=== PATIENT | female | born 1930 | race Caucasian/White ===

== ENCOUNTER 2016-10-31 09:25 | Inpatient (IN) | payer OTHER ==
[~2016-10-31] VITALS: Ht 160 cm; Wt 52.9 kg
[2016-10-31] MEDS ORDERED: SODIUM CHLORIDE 0.9% 1000ML 1,000 ML IV STA (09:50)
--- NOTE | 2016-10-31 10:26 | DIAGNOSTIC IMAGING REPORT ---
CHEST ONE VIEW PORTABLE CLINICAL HISTORY: FALL, RT SHOULDER PAIN trauma. Pain. COMPARISON STUDY: 02/10/2005 FINDINGS: Mild chronic emphysematous change. Mild apical fibrotic change. Increased density left pulmonary apex felt to be overlap artifact. Mild chronic interstitial change left base combined with superimposed atelectatic change. Fracture right humeral neck IMPRESSION: Emphysematous change. Mild interstitial change left base. Note is made of a fracture of the right humeral neck The above report was generated using voice recognition software. It may contain grammatical, syntax or spelling errors. Electronically signed by: [place] Dominique M.D. 10/31/2016 10:25 AM Dictated Date/Time: 10/31/2016 10:24 AM
--- NOTE | 2016-10-31 10:27 | DIAGNOSTIC IMAGING REPORT ---
RIGHT SHOULDER MIN 2 VIEWS ROUTINE CLINICAL HISTORY: R shoulder pain, hematoma Right trauma COMPARISON: None. DISCUSSION: Slightly impacted fracture right humeral neck. No evidence of dislocation. All remaining osseous structures are unremarkable. There is no evidence for soft tissue swelling. IMPRESSION: Slightly impacted fracture humeral neck. The above report was generated using voice recognition software. It may contain grammatical, syntax or spelling errors. Electronically signed by: [place] Dominique M.D. 10/31/2016 10:26 AM Dictated Date/Time: 10/31/2016 10:25 AM
[2016-10-31 10:31] LABS: BASO % 0.1 %; BASO ABS # 0.01 K/uL (0-0.2); COMPLETE YES; EOS % 0.1 %; HEMATOCRIT 34.9 % (37-47); IG% 0.4 %; LYMPH % 4.8 %; LYMPH ABS # 0.62 K/uL (1.2-3.4); MEAN CELL VOLUME 85.3 fL (80-100); MEAN CORPUSCULAR HEMOGLOBIN 29.1 pg (25-34); MEAN CORPUSCULAR HGB CONC 34.1 g/dl (32-36); MEAN PLATELET VOLUME 10.9 fL (7.4-10.4); MONO % 6.1 %; NEUT % 88.5 %; PLATELET COUNT 339 K/uL (130-400); RED BLOOD COUNT 4.09 M/uL (4.2-5.4); WHITE BLOOD COUNT 12.79 K/uL (4.8-10.8)
--- NOTE | 2016-10-31 10:35 | EMERGENCY ROOM VISIT NOTE ---
History Report prepared by Karolyn: Dayana Rodas Under the Supervision of: Dr. Gianna Lopez M.D. First contact with patient: 09:36 Chief Complaint: ARM PAIN Stated Complaint: FALL/R-ARM WEAKNESS History of Present Illness The patient is an 86 year old female who presents to the Emergency Room with complaints of persistent right shoulder pain starting 2300 last night. She presents to the ED by EMS. She lives alone at home. She was going out into the garage yesterday to get water. She left her walker inside. She lost her balance and fell onto her right side. She then crawled into the house to her walker. She was in the garage for about 10 minutes. She was able to walk using her walker. She slept sitting up on the sofa last night. She is unable to move her arm due to the pain. She denies any head injury, hip pain, or other pain. She did eat dinner last night. She is not on any blood thinners. She fell before and injured her right shoulder. She did not have a fracture at that time. Source of History: patient Onset: 2300 last night Position: shoulder (right) Quality: other (injury) Timing: other (persistent) Modifying Factors (Worsening): movement Associated Symptoms: No headache Note: Pt denies hip pain, head injury. Review of Systems See HPI for pertinent positives & negatives. A total of 10 systems reviewed and were otherwise negative. Past Medical & Surgical Medical Problems: (1) Chest pain (2) Fracture of humeral head (3) Hypertension (4) Hypothyroidism (5) Osteoporosis (6) Post-polio muscle weakness (7) Vertigo Surgical Problems: (1) S/P lumpectomy of breast Family History Noncontributory secondary to age. Social History Smoking Status: Never Smoker Marital Status: Housing Status: lives alone Occupation Status: retired Current/Historical Medications Scheduled Calcium Carbonate-Cholecalcife (Calcium 500 +D), 1 TAB PO BID Levothyroxine Sodium (Synthroid), 50 MCG PO DAILY Lisinopril (Prinivil), 10 MG PO DAILY Multivitamin (Multivitamin), 1 TAB PO DAILY Scheduled PRN Meclizine HCl (Meclizine 25), 25 MG PO TID PRN for Dizziness or Vertigo Allergies Coded Allergies: Adhesives (Verified Allergy, Unknown, 10/31/16) Physical Exam Vital Signs Date Time Temp Pulse Resp B/P (MAP) Pulse Ox O2 Delivery O2 Flow Rate FiO2 10/31/16 11:30 75 18 179/90 98 Room Air 10/31/16 10:33 73 10/31/16 10:28 74 18 181/89 98 Room Air 10/31/16 09:33 36.7 85 18 183/99 98 Room Air Physical Exam Vital signs reviewed. General: Well-appearing 86-year-old female, in no significant distress. HEENT: No scleral icterus, PERRLA, neck supple. Atraumatic. Cardiovascular: Regular rate and rhythm, no extra sounds. Pulmonary: Clear to auscultation bilaterally, normal work of breathing. Abdomen: Soft, nontender, nondistended, positive bowel sounds. Musculoskeletal: Tenderness to palpation of the right humeral head, ecchymosis over the right bicep, pain with any ROM of the right arm, no significant deformity or swelling, neurovascularly intact distally. Nontender with pelvic rocking. Full ROM in the bilateral lower extremities. Cervical, thoracic and lumbar spine are palpated, nontender, no step-off or deformity appreciated. Neurologic: Patient awake alert and oriented x 3, 3/5 strength in bilateral lower extremities, baseline. Skin: Warm, dry, no rash. No significant abrasions/laceration. Medical Decision & Procedures ER Provider Diagnostic Interpretation: X-ray results as stated below per interpretation by me and the radiologist: CHEST ONE VIEW PORTABLE CLINICAL HISTORY: FALL, RT SHOULDER PAIN trauma. Pain. COMPARISON STUDY: 02/10/2005 FINDINGS: Mild chronic emphysematous change. Mild apical fibrotic change. Increased density left pulmonary apex felt to be overlap artifact. Mild chronic interstitial change left base combined with superimposed atelectatic change. Fracture right humeral neck IMPRESSION: Emphysematous change. Mild interstitial change left base. Note is made of a fracture of the right humeral neck The above report was generated using voice recognition software. It may contain grammatical, syntax or spelling errors. Electronically signed by: [place] Dominique M.D. 10/31/2016 10:25 AM Dictated Date/Time: 10/31/2016 10:24 AM RIGHT SHOULDER MIN 2 VIEWS ROUTINE CLINICAL HISTORY: R shoulder pain, hematoma Right trauma COMPARISON: None. DISCUSSION: Slightly impacted fracture right humeral neck. No evidence of dislocation. All remaining osseous structures are unremarkable. There is no evidence for soft tissue swelling. IMPRESSION: Slightly impacted fracture humeral neck. The above report was generated using voice recognition software. It may contain grammatical, syntax or spelling errors. Electronically signed by: [place] Dominique M.D. 10/31/2016 10:26 AM Dictated Date/Time: 10/31/2016 10:25 AM Laboratory Results Test 10/31/16 10:00 10/31/16 10:12 10/31/16 11:15 Immature Granulocyte % (Auto) 0.4 % White Blood Count 12.79 K/uL (4.8-10.8) Red Blood Count 4.09 M/uL (4.2-5.4) Hemoglobin 11.9 g/dL (12.0-16.0) Hematocrit 34.9 % (37-47) Mean Corpuscular Volume 85.3 fL (80-100) Mean Corpuscular Hemoglobin 29.1 pg (25-34) Mean Corpuscular Hemoglobin Concent 34.1 g/dl (32-36) Platelet Count 339 K/uL (130-400) Mean Platelet Volume 10.9 fL (7.4-10.4) Neutrophils (%) (Auto) 88.5 % Lymphocytes (%) (Auto) 4.8 % Monocytes (%) (Auto) 6.1 % Eosinophils (%) (Auto) 0.1 % Basophils (%) (Auto) 0.1 % Neutrophils # (Auto) 11.32 K/uL (1.4-6.5) Lymphocytes # (Auto) 0.62 K/uL (1.2-3.4) Monocytes # (Auto) 0.78 K/uL (0.11-0.59) Eosinophils # (Auto) 0.01 K/uL (0-0.5) Basophils # (Auto) 0.01 K/uL (0-0.2) Immature Granulocyte # (Auto) 0.05 K/uL (0.00-0.02) Prothrombin Time 10.2 SECONDS (9.0-12.0) Prothromb Time International Ratio 1.0 (0.9-1.1) Activated Partial Thromboplast Time 28.8 SECONDS (21.0-31.0) Partial Thromboplastin Ratio 1.1 Osmolality 269 mOsm/kg (280-300) Magnesium Level 1.9 mg/dl (1.8-2.4) Total Bilirubin 0.8 mg/dl (0.2-1) Direct Bilirubin 0.2 mg/dl (0-0.2) Aspartate Amino Transf (AST/SGOT) 21 U/L (15-37) Alanine Aminotransferase (ALT/SGPT) 22 U/L (12-78) Alkaline Phosphatase 79 U/L (45-117) Total Creatine Kinase 106 U/L (26-192) Total Protein 6.9 gm/dl (6.4-8.2) Albumin 3.7 gm/dl (3.4-5.0) 25-Hydroxy Vitamin D Total 22.6 ng/ml (30-100) Thyroid Stimulating Hormone (TSH) 0.848 uIu/ml (0.300-4.500) Bedside Troponin I < 0.030 ng/ml (0-0.045) Urine Color YELLOW Urine Appearance CLEAR (CLEAR) Urine pH 7.0 (4.5-7.5) Urine Specific [place] 1.016 (1.000-1.030) Urine Protein NEG (NEG) Urine Glucose (UA) NEG (NEG) Urine Ketones NEG (NEG) Urine Occult Blood NEG (NEG) Urine Nitrite NEG (NEG) Urine Bilirubin NEG (NEG) Urine Urobilinogen NEG (NEG) Urine Leukocyte Esterase NEG (NEG) Urine Osmolality 403 mOms/kg (500-800) Laboratory results per my review. Medications Administered Medications (Trade) Dose Ordered Sig/Guerrero Route Start Time Stop Time Status Last Admin Dose Admin Sodium Chloride 1,000 ml @ 125 mls/hr Q8H STAT IV 10/31/16 09:50 10/31/16 16:04 DC 10/31/16 10:30 125 MLS/HR ECG Indication: other (fall) Rate (beats per minute): 75 Rhythm: normal sinus Findings: no acute ischemic change, no ectopy ED Course 0949: Past medical records reviewed. The patient was evaluated in room B8. A complete history and physical examination was performed. 0950: NSS 1000 ml @ 125 mls/hr IV. 1226: Upon reevaluation, the patient is resting comfortably. I discussed laboratory and radiographic results with her. She verbalized agreement of the treatment plan. The patient will be evaluated for further management and care. 1247: I reviewed the patient's case [facility] She will evaluate the patient for further management. Medical Decision Differential diagnosis: Intracranial injury, cervical spine injury, intrathoracic injury, intra- abdominal injury, musculoskeletal injury. This patient was evaluated and appeared to be in no significant distress. Physical examination reveals a large amount of ecchymosis over the right biceps region as well as tenderness to the humeral head. X-rays confirm an impacted humeral head fracture without a significant displacement. Patient was placed in an arm sling. The remainder of the imaging studies are negative. The patient denies any head injury or loss of consciousness. Patient has been gently hydrated with normal saline solution. She is found to be hyponatremic. Case was discussed with the hospitalist service for further evaluation. Patient will likely require PT OT evaluation as well as consideration for rehabilitation upon discharge. Patient and son are aware of the plan and agree. Medication Reconcilliation Current Medication List: was personally reviewed by me Blood Pressure Screening Patient's blood pressure: Elevated blood pressure Referred to the hospitalist. Consults Time Called: 1230 Consulting Physician: Efraín Ojeda hospitalist Returned Call: [phone] I reviewed the patient's case with her. She will evaluate the patient for further management. Impression Primary Impression: Fracture of head of right humerus Additional Impression: Fall Scribe Attestation The scribe's documentation has been prepared under my direction and personally reviewed by me in its entirety. I confirm that the note above accurately reflects all work, treatment, procedures, and medical decision making performed by me. Departure Information Dispostion Being Evaluated By Hospitalist Referrals Lance Eugene M.D. (PCP) Patient Instructions My [facility] Problem Qualifiers
[2016-10-31] MEDS ORDERED: MECL-91 PO (10:39)
[2016-10-31] MEDS ORDERED: LEVO50TA PO (10:39)
[2016-10-31] MEDS ORDERED: LISI10TA PO (10:39)
[2016-10-31] MEDS ORDERED: MULT-506 PO (10:39)
[2016-10-31 10:49] LABS: BUN/CREATININE RATIO 36.7 (10-20); CALCIUM 9.2 mg/dl (8.5-10.1); CREATININE 0.39 mg/dl (0.60-1.20); MAGNESIUM 1.9 mg/dl (1.8-2.4)
[2016-10-31 11:30] LABS: URINE APPEARANCE CLEAR (CLEAR); URINE BILIRUBIN NEG (NEG); URINE COLOR YELLOW; URINE NITRITE NEG (NEG); URINE SPECIFIC GRAVITY 1.016 (1.000-1.030); UROBILINOGEN NEG (NEG); ZZUR CULT IF INDIC CLEAN CATCH NO
[2016-10-31 11:32] LABS: MANUAL MICROSCOPIC REQUIRED? NO; REVIEW REQ? NO
[2016-10-31] MEDS ORDERED: ACETAMINOPHEN 325 MG TAB PO PRN (13:00)
[2016-10-31] MEDS ORDERED: ONDANSETRON INJ 2 MG/ML 2 ML VIAL IV PRN (13:00)
[2016-10-31 13:09] VITALS: O2SAT 98; Ht 160 cm; Wt 52.9 kg
[2016-10-31] MEDS ORDERED: IV FLUIDS COMPLETED PRN (14:00)
[2016-10-31 14:45] VITALS: O2SAT 98
--- NOTE | 2016-10-31 15:02 | History and Physical ---
History & Physical Date & Time of Service: Oct 31, 2016 at 14:47 Chief Complaint: Fall/R-Arm Weakness Primary Care Physician: Lance Eugene M.D. History of Present Illness Source: patient, family, clinic records, hospital records 86 yo F presents with R arm pain, restricted ROM and possible biceps rupture after a mechanical fall at home last evening while in her garage. She reports feeling off balance which is a long-standing issue she has had for several years , which has caused two other falls in the past year. She denies any loss of consciousness and reports that she only hit her R shoulder, and did not extend her arm out to catch herself. She denies feeling poorly including no chest pain , shortness of breath, headache, abdominal pain, nausea, diarrhea, recent bleeding or blood in stool. She reports feeling lightheaded moreso when going from sitting to standing or sometimes when she is just getting out of bed. With her two prior falls there were no apparent fractures. 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 She does admit to being fearful of showering because she is afraid she will fall. She ambulates with a walker at baseline. Her son is at bedside and assisted with history. She is mentating well and reports that her pain is present but tolerable without the need for medications. She does have a large vertical bruise over her entire R biceps, and she is unable to actively move her R arm. 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 Social History Smoking Status: Never Smoker Smokeless Tobacco Use: No Alcohol Use: none Drug Use: none Marital Status: other Housing status: lives alone Occupational Status: retired Immunizations History of Influenza Vaccine: Yes Influenza Vaccine Date: Feb 04, 2016 History of Tetanus Vaccine?: Yes (4 YRS AGO) Tetanus Immunization Date: Aug 16, 2014 History of Pneumococcal: Yes Pneumococcal Date: Aug 01, 2014 History of Hepatitis B Vaccine: No Multi-Drug Resistant Organisms History of MDRO: No Allergies Coded Allergies: Adhesives (Verified Allergy, Unknown, 10/31/16) Home Medications Scheduled Calcium Carbonate-Cholecalcife (Calcium 500 +D), 1 TAB PO BID Levothyroxine Sodium (Synthroid), 50 MCG PO DAILY Lisinopril (Prinivil), 10 MG PO DAILY Multivitamin (Multivitamin), 1 TAB PO DAILY Scheduled PRN Meclizine HCl (Meclizine 25), 25 MG PO TID PRN for Dizziness or Vertigo Review of Systems Constitutional: + weight loss (chronic, not rapid), No fever, No chills, No fatigue ENT: No problem reported Respiratory: No cough, No shortness of breath Cardiovascular: No chest pain Abdomen: No pain, No nausea, No vomiting, No diarrhea, No GI bleeding Musculoskeletal: + joint pain, + muscle pain (RUE) Genitourinary - Female: No problem reported Neurologic: + balance problems Psychiatric: No problem reported Hematologic / Lymphatic: + abnormal bleeding/bruising (RUE after trauma) Allergic / Immunologic: No food allergies Physical Exam Vital Signs Date Time Temp Pulse Resp B/P (MAP) Pulse Ox O2 Delivery O2 Flow Rate FiO2 10/31/16 13:22 75 18 176/78 98 Room Air 10/31/16 13:09 98 Room Air 10/31/16 11:30 75 18 179/90 98 Room Air 10/31/16 10:33 73 10/31/16 10:28 74 18 181/89 98 Room Air 10/31/16 09:33 36.7 85 18 183/99 98 Room Air GEN: thin, frail, elderly, in no acute distress, alert and appropriate HEENT: NC/AT, pupils are equal and round bilaterally, normal sclerae/ conjunctivae, MMM CARDIO: reg rate, S1/2 heard without m/g/r LUNGS: CTA bilaterally, no crackles, rales or wheezes, good diaphragmatic excursion ABD: soft, non-tender, non-distended, no rebound or guarding, +BS EXTREMITY: RUE-unable to move with active or passive motion, difficult to get sweater untangled from her arm and was causing her pain so limited exam. Significant bruising noted in her biceps with point tenderness in proximal shoulder. RP and DP palpable 2+ bilat, no LE swelling or edema, extremities are warm and well-perfused. Some L foot drop noted-chronic polio effect, otherwise strength intact NEURO: CN 2-12 grossly intact, sensation intact throughout MUSC: as above. SKIN: warm and dry and ecchymosis in R biceps. Diagnostics Laboratory Results 10/31/16 10:00 Red Blood Count 4.09, Mean Corpuscular Volume 85.3, Mean Corpuscular Hemoglobin 29.1, Mean Corpuscular Hemoglobin Concent 34.1, Mean Platelet Volume 10.9, Neutrophils (%) (Auto) 88.5, Lymphocytes (%) (Auto) 4.8, Monocytes (%) (Auto) 6.1, Eosinophils (%) (Auto) 0.1, Basophils (%) (Auto) 0.1, Neutrophils # (Auto) 11.32, Lymphocytes # (Auto) 0.62, Monocytes # (Auto) 0.78, Eosinophils # (Auto) 0.01, Basophils # (Auto) 0.01 10/31/16 10:00 Test 10/31/16 10:00 10/31/16 10:12 10/31/16 11:15 White Blood Count 12.79 K/uL (4.8-10.8) Red Blood Count 4.09 M/uL (4.2-5.4) Hemoglobin 11.9 g/dL (12.0-16.0) Hematocrit 34.9 % (37-47) Mean Corpuscular Volume 85.3 fL (80-100) Mean Corpuscular Hemoglobin 29.1 pg (25-34) Mean Corpuscular Hemoglobin Concent 34.1 g/dl (32-36) Platelet Count 339 K/uL (130-400) Mean Platelet Volume 10.9 fL (7.4-10.4) Neutrophils (%) (Auto) 88.5 % Lymphocytes (%) (Auto) 4.8 % Monocytes (%) (Auto) 6.1 % Eosinophils (%) (Auto) 0.1 % Basophils (%) (Auto) 0.1 % Neutrophils # (Auto) 11.32 K/uL (1.4-6.5) Lymphocytes # (Auto) 0.62 K/uL (1.2-3.4) Monocytes # (Auto) 0.78 K/uL (0.11-0.59) Eosinophils # (Auto) 0.01 K/uL (0-0.5) Basophils # (Auto) 0.01 K/uL (0-0.2) RDW Standard Deviation 40.8 fL (36.4-46.3) RDW Coefficient of Variation 13.1 % (11.5-14.5) Immature Granulocyte % (Auto) 0.4 % Immature Granulocyte # (Auto) 0.05 K/uL (0.00-0.02) Anion Gap 4.0 mmol/L (3-11) Est Creatinine Clear Calc Drug Dose 87.2 ml/min Estimated GFR () 111.0 Estimated GFR (Non- 95.8 BUN/Creatinine Ratio 36.7 (10-20) Osmolality 269 mOsm/kg (280-300) Calcium Level 9.2 mg/dl (8.5-10.1) Magnesium Level 1.9 mg/dl (1.8-2.4) Total Bilirubin 0.8 mg/dl (0.2-1) Direct Bilirubin 0.2 mg/dl (0-0.2) Aspartate Amino Transf (AST/SGOT) 21 U/L (15-37) Alanine Aminotransferase (ALT/SGPT) 22 U/L (12-78) Alkaline Phosphatase 79 U/L (45-117) Total Creatine Kinase 106 U/L (26-192) Total Protein 6.9 gm/dl (6.4-8.2) Albumin 3.7 gm/dl (3.4-5.0) 25-Hydroxy Vitamin D Total 22.6 ng/ml (30-100) Thyroid Stimulating Hormone (TSH) 0.848 uIu/ml (0.300-4.500) Bedside Troponin I < 0.030 ng/ml (0-0.045) Urine Color YELLOW Urine Appearance CLEAR (CLEAR) Urine pH 7.0 (4.5-7.5) Urine Specific [place] 1.016 (1.000-1.030) Urine Protein NEG (NEG) Urine Glucose (UA) NEG (NEG) Urine Ketones NEG (NEG) Urine Occult Blood NEG (NEG) Urine Nitrite NEG (NEG) Urine Bilirubin NEG (NEG) Urine Urobilinogen NEG (NEG) Urine Leukocyte Esterase NEG (NEG) Results Past 24 Hours Test 10/31/16 10:00 10/31/16 10:12 10/31/16 11:15 Range/Units White Blood Count 12.79 4.8-10.8 K/uL Red Blood Count 4.09 4.2-5.4 M/uL Hemoglobin 11.9 12.0-16.0 g/dL Hematocrit 34.9 37-47 % Mean Corpuscular Volume 85.3 80-100 fL Mean Corpuscular Hemoglobin 29.1 25-34 pg Mean Corpuscular Hemoglobin Concent 34.1 32-36 g/dl Platelet Count 339 130-400 K/uL Mean Platelet Volume 10.9 7.4-10.4 fL Neutrophils (%) (Auto) 88.5 % Lymphocytes (%) (Auto) 4.8 % Monocytes (%) (Auto) 6.1 % Eosinophils (%) (Auto) 0.1 % Basophils (%) (Auto) 0.1 % Neutrophils # (Auto) 11.32 1.4-6.5 K/uL Lymphocytes # (Auto) 0.62 1.2-3.4 K/uL Monocytes # (Auto) 0.78 0.11-0.59 K/uL Eosinophils # (Auto) 0.01 0-0.5 K/uL Basophils # (Auto) 0.01 0-0.2 K/uL RDW Standard Deviation 40.8 36.4-46.3 fL RDW Coefficient of Variation 13.1 11.5-14.5 % Immature Granulocyte % (Auto) 0.4 % Immature Granulocyte # (Auto) 0.05 0.00-0.02 K/uL Sodium Level 127 136-145 mmol/L Potassium Level 5.0 3.5-5.1 mmol/L Chloride Level 94 98-107 mmol/L Carbon Dioxide Level 29 21-32 mmol/L Anion Gap 4.0 3-11 mmol/L Blood Urea Nitrogen 14 7-18 mg/dl Creatinine 0.39 0.60-1.20 mg/dl Est Creatinine Clear Calc Drug Dose 87.2 ml/min Estimated GFR () 111.0 Estimated GFR (Non- 95.8 BUN/Creatinine Ratio 36.7 10-20 Random Glucose 111 70-99 mg/dl Osmolality 269 280-300 mOsm/kg Calcium Level 9.2 8.5-10.1 mg/dl Magnesium Level 1.9 1.8-2.4 mg/dl Total Bilirubin 0.8 0.2-1 mg/dl Direct Bilirubin 0.2 0-0.2 mg/dl Aspartate Amino Transf (AST/SGOT) 21 15-37 U/L Alanine Aminotransferase (ALT/SGPT) 22 12-78 U/L Alkaline Phosphatase 79 45-117 U/L Total Creatine Kinase 106 26-192 U/L Total Protein 6.9 6.4-8.2 gm/dl Albumin 3.7 3.4-5.0 gm/dl 25-Hydroxy Vitamin D Total 22.6 30-100 ng/ml Thyroid Stimulating Hormone (TSH) 0.848 0.300-4.500 uIu/ml Bedside Troponin I < 0.030 0-0.045 ng/ml Urine Color YELLOW Urine Appearance CLEAR CLEAR Urine pH 7.0 4.5-7.5 Urine Specific [place] 1.016 1.000-1.030 Urine Protein NEG NEG Urine Glucose (UA) NEG NEG Urine Ketones NEG NEG Urine Occult Blood NEG NEG Urine Nitrite NEG NEG Urine Bilirubin NEG NEG Urine Urobilinogen NEG NEG Urine Leukocyte Esterase NEG NEG Diagnostic Radiology CHEST ONE VIEW PORTABLE CLINICAL HISTORY: FALL, RT SHOULDER PAIN trauma. Pain. COMPARISON STUDY: 02/10/2005 FINDINGS: Mild chronic emphysematous change. Mild apical fibrotic change. Increased density left pulmonary apex felt to be overlap artifact. Mild chronic interstitial change left base combined with superimposed atelectatic change. Fracture right humeral neck IMPRESSION: Emphysematous change. Mild interstitial change left base. Note is made of a fracture of the right humeral neck RIGHT SHOULDER MIN 2 VIEWS ROUTINE CLINICAL HISTORY: R shoulder pain, hematoma Right trauma COMPARISON: None. DISCUSSION: Slightly impacted fracture right humeral neck. No evidence of dislocation. All remaining osseous structures are unremarkable. There is no evidence for soft tissue swelling. IMPRESSION: Slightly impacted fracture humeral neck EKG Baseline EKG is pending Impression Assessment and Plan 86 yo F with multiple falls at home including a fall last night resulting in shoulder injury and humeral head fracture with poss L biceps tendon rupture. 1. R humeral head fracture-pain is controlled, PRN oxy or Tylenol as needed. PT is declining this now. Very restricted active ROM, passive ROM was difficult so will defer more extensive exam to Ortho. ORtho consult placed. PT /OT consulted. Likely refer to rehab. Appreciate case management involvement. PT lives alone and has endured at least three falls in the past year. She reports a worsening of her balance. TSH is normal. Will check 25OH vit D, B12 and folate. Defer further workup and rearrangement of medications possibly contributing to outpatient PCP. 2. Biceps tendon rupture-significant ecchymosis to R biceps-appreciate Ortho evaluation and recs. 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 Osteoporosis-cont Ca/D 5. HTN-uncontrolled. Cont lisinopril 10mg PO daily and give hydralazine 5 IV now with close monitoring. Control pain-patient appears to be minimizing. 6. Hypothyroidism-TSH wNL, continue Synthroid at home dose 7. Hypotonic, hypovolemic hyponatremia- 500 cc NS given in ER and will repeat Na tonight and give more IVF if necessary DVT proph-heparin FULL CODE-discussed with she and her son on admission Dispo-to Med/Surg and to rehab after Ortho and [facility] Hospital[facility] Level of Care Med/Surg Advanced Directives Existing Living Will: Yes Existing Power of Legal Transcriptionist: Yes (IVONNE SON ) Resuscitation Status FULL RESUSCITATION VTE Prophylaxis VTE Risk Assessment Done? Y/N: Yes Risk Level: Moderate Given or contraindicated: Unfractionated heparin SQ Social Service Consult >80 yr.& Lives Alone
[2016-10-31 15:13] VITALS: BP 184/75; PULSE 92; TEMP 37.4; O2SAT 97
[2016-10-31] MEDS ORDERED: HydrALAZINE HCL 20 MG/ML VIAL IV. STA (15:35)
[2016-10-31] MEDS ORDERED: CALC-343 PO (15:35)
[2016-10-31 15:41] LABS: PARTIAL THROMBOPLASTIN RATIO 1.1; PROTHROMBIN TIME (PATIENT) 10.2 SECONDS (9.0-12.0)
[2016-10-31] MEDS ORDERED: OXYCODONE HCL IR 5 MG TAB (IMMEDIATE RELEASE) PO PRN (15:45)
[2016-10-31] MEDS: HEPARIN SOD 5000 UNIT/0.5 ML CARP SQ SCH ×2 (16:16→21:30)
[2016-10-31 17:16] VITALS: BP 190/74; PULSE 74; PULSE 94
[2016-10-31] MEDS ORDERED: HydrALAZINE HCL 20 MG/ML VIAL IV. ONE (17:45)
[2016-10-31 19:00] VITALS: BP 129/62; PULSE 105; TEMP 36.7
[2016-10-31] MEDS: CALCIUM 600MG + VIT D 400 IU TAB PO SCH (21:23)
--- NOTE | 2016-10-31 21:51 | Orthopedic Consultation ---
Orthopedic Consultation Date of Consultation: Oct 31, 2016. Attending Physician: Yana Garces DO Reason for Consultation: Right shoulder pain and proximal humerus fracture History of Present Illness 86-year-old female who sustained a fall yesterday directly onto the right shoulder. She had immediate pain and inability to use the right shoulder. She presented to the emergency room today for further evaluation. She states that she's had several falls recently. Denies previous injury to the right shoulder. Denies numbness or tingling in the extremity. Past Medical/Surgical History Medical Problems: (1) Fall Status: Acute (2) Fracture of head of right humerus Status: Acute Family History Patient reports no known family medical history. Social History Smoking Status: Never Smoker Smokeless Tobacco Use: No Alcohol Use: none Drug Use: none Marital Status: other Housing Status: lives alone Occupation Status: retired Allergies Coded Allergies: Adhesives (Verified Allergy, Unknown, 10/31/16) Home Medications Scheduled Calcium Carbonate-Cholecalcife (Calcium 500 +D), 1 TAB PO BID Levothyroxine Sodium (Synthroid), 50 MCG PO DAILY Lisinopril (Prinivil), 10 MG PO DAILY Multivitamin (Multivitamin), 1 TAB PO DAILY Scheduled PRN Meclizine HCl (Meclizine 25), 25 MG PO TID PRN for Dizziness or Vertigo Current Inpatient Medications Current Inpatient Medications Medications (Trade) Dose Ordered Sig/Guerrero Route Start Time Stop Time Status Last Admin Dose Admin Heparin Sodium (Porcine) (Heparin Sq 5000 Unit/0.5ml) 5,000 unit Q8@0600,1400,2200 SQ 10/31/16 16:30 11/30/16 16:29 10/31/16 21:30 5,000 UNIT Acetaminophen (Tylenol Tab) 650 mg Q4H PRN PO 10/31/16 13:00 11/30/16 12:59 Polyethylene (Miralax Powder Packet) 17 gm DAILY PRN PO 10/31/16 13:00 11/30/16 12:59 Ondansetron HCl (Zofran Inj) 4 mg Q6H PRN IV 10/31/16 13:00 11/30/16 12:59 Miscellaneous (Iv Fluids Completed) 1 ea PRN PRN N/A 10/31/16 14:00 10/31/17 13:59 Levothyroxine Sodium (Synthroid Tab) 50 mcg DAILYBB PO 11/01/16 06:00 12/01/16 05:59 Lisinopril (Zestril Tab) 10 mg DAILY PO 11/01/16 09:00 12/01/16 08:59 Multivitamins (Multivitamin Tab) 1 tab DAILY PO 11/01/16 09:00 12/01/16 08:59 Calcium/Vitamin D (Caltrate Plus Tab) 1 tab BID PO 10/31/16 21:00 11/30/16 20:59 10/31/16 21:23 1 TAB Oxycodone HCl (Roxicodone Immediate Rel Tab) 5 mg Q4H PRN PO 10/31/16 15:45 11/14/16 15:44 Tramadol HCl (Ultram Tab) 50 mg Q4H PRN PO 10/31/16 19:00 11/30/16 18:59 Physical Exam Date Time Temp Pulse Resp B/P (MAP) Pulse Ox O2 Delivery O2 Flow Rate FiO2 10/31/16 19:00 36.7 105 129/62 (84) 10/31/16 17:16 94 190/74 (112) 10/31/16 15:15 Room Air 10/31/16 15:13 37.4 92 16 184/75 (111) 97 Room Air 10/31/16 14:45 94 18 185/88 98 10/31/16 13:22 75 18 176/78 98 Room Air 10/31/16 13:09 98 Room Air 10/31/16 11:30 75 18 179/90 98 Room Air 10/31/16 10:33 73 10/31/16 10:28 74 18 181/89 98 Room Air 10/31/16 09:33 36.7 85 18 183/99 98 Room Air Right upper extremity: 2+ radial pulse, light touch sensation and motor function in the median ulnar and radial nerve distributions is intact. Ecchymosis over the biceps. No significant tenderness over the biceps. No pain with palpation or range of motion of the elbow. She has tenderness to palpation and pain with motion at the shoulder. Left upper extremity examination is unremarkable General Appearance: WD/WN Head: normocephalic Eyes: normal inspection Neck: supple Respiratory/Chest: chest non-tender Cardiovascular: regular rate, rhythm Extremities/Musculoskelatal: + pertinent finding (ecchymoses) Laboratory Results Last 24 Hours Test 10/31/16 10:00 10/31/16 10:12 10/31/16 11:15 White Blood Count 12.79 K/uL Red Blood Count 4.09 M/uL Hemoglobin 11.9 g/dL Hematocrit 34.9 % Mean Corpuscular Volume 85.3 fL Mean Corpuscular Hemoglobin 29.1 pg Mean Corpuscular Hemoglobin Concent 34.1 g/dl Platelet Count 339 K/uL Mean Platelet Volume 10.9 fL Neutrophils (%) (Auto) 88.5 % Lymphocytes (%) (Auto) 4.8 % Monocytes (%) (Auto) 6.1 % Eosinophils (%) (Auto) 0.1 % Basophils (%) (Auto) 0.1 % Neutrophils # (Auto) 11.32 K/uL Lymphocytes # (Auto) 0.62 K/uL Monocytes # (Auto) 0.78 K/uL Eosinophils # (Auto) 0.01 K/uL Basophils # (Auto) 0.01 K/uL RDW Standard Deviation 40.8 fL RDW Coefficient of Variation 13.1 % Immature Granulocyte % (Auto) 0.4 % Immature Granulocyte # (Auto) 0.05 K/uL Prothrombin Time 10.2 SECONDS Prothromb Time International Ratio 1.0 Activated Partial Thromboplast Time 28.8 SECONDS Partial Thromboplastin Ratio 1.1 Sodium Level 127 mmol/L Potassium Level 5.0 mmol/L Chloride Level 94 mmol/L Carbon Dioxide Level 29 mmol/L Anion Gap 4.0 mmol/L Blood Urea Nitrogen 14 mg/dl Creatinine 0.39 mg/dl Est Creatinine Clear Calc Drug Dose 87.2 ml/min Estimated GFR () 111.0 Estimated GFR (Non- 95.8 BUN/Creatinine Ratio 36.7 Random Glucose 111 mg/dl Osmolality 269 mOsm/kg Calcium Level 9.2 mg/dl Magnesium Level 1.9 mg/dl Total Bilirubin 0.8 mg/dl Direct Bilirubin 0.2 mg/dl Aspartate Amino Transf (AST/SGOT) 21 U/L Alanine Aminotransferase (ALT/SGPT) 22 U/L Alkaline Phosphatase 79 U/L Total Creatine Kinase 106 U/L Total Protein 6.9 gm/dl Albumin 3.7 gm/dl 25-Hydroxy Vitamin D Total 22.6 ng/ml Thyroid Stimulating Hormone (TSH) 0.848 uIu/ml Bedside Troponin I < 0.030 ng/ml Urine Color YELLOW Urine Appearance CLEAR Urine pH 7.0 Urine Specific [place] 1.016 Urine Protein NEG Urine Glucose (UA) NEG Urine Ketones NEG Urine Occult Blood NEG Urine Nitrite NEG Urine Bilirubin NEG Urine Urobilinogen NEG Urine Leukocyte Esterase NEG Urine Osmolality 403 mOms/kg Assessment & Plan Impacted right proximal humerus fracture Fractures in acceptable alignment. Long she is able to maintain current alignment this fracture will heal well with nonoperative measures. The ecchymoses over the anterior aspect of her arm is from proximal humerus and the blood tracking down distally or from a rupture of the long head of biceps tendon. Rupture of the long head of biceps tendon is common particularly in the elderly population as it is a degenerative condition and is treated well with nonoperative measures. For now we will place her in a sling she is to be nonweightbearing on the right upper extremity. She is to follow-up in my office in 1 week for surveillance x-rays.
[2016-10-31 23:12] VITALS: BP_SYST 117; BP_SYST 130; BP_SYST 94; BP_DIAS 54; BP_DIAS 61; BP_DIAS 64; PULSE 102; PULSE 116; PULSE 137; TEMP 37.3; O2SAT 96
[2016-11-01] VITALS (8 sets, daily range): BP systolic 135–176; BP diastolic 67–83; PULSE 72–115; TEMP 36.5–36.7; O2SAT 95–96
[2016-11-01 05:40] LABS: HEMATOCRIT 31.4 % (37-47); MEAN CELL VOLUME 85.8 fL (80-100); MEAN CORPUSCULAR HEMOGLOBIN 29.5 pg (25-34); MEAN CORPUSCULAR HGB CONC 34.4 g/dl (32-36); MEAN PLATELET VOLUME 10.4 fL (7.4-10.4); PLATELET COUNT 295 K/uL (130-400); RED BLOOD COUNT 3.66 M/uL (4.2-5.4); WHITE BLOOD COUNT 6.28 K/uL (4.8-10.8)
[2016-11-01] MEDS: LEVOTHYROXINE 50 MCG TAB PO SCH (05:42)
[2016-11-01] MEDS: HEPARIN SOD 5000 UNIT/0.5 ML CARP SQ SCH ×3 (05:45→21:39)
[2016-11-01 06:24] LABS: BUN/CREATININE RATIO 43.2 (10-20); CALCIUM 8.6 mg/dl (8.5-10.1); CREATININE 0.28 mg/dl (0.60-1.20); POTASSIUM 4.2 mmol/L (3.5-5.1)
[2016-11-01] MEDS: TRAMADOL HCL 50 MG TAB PO PRN ×2 (07:28→23:57)
[2016-11-01] MEDS: ERGOCALCIFEROL 50,000 INTER.UNIT CAP PO SCH ×2 (09:00→09:15)
[2016-11-01] MEDS: LISINOPRIL 10 MG TAB PO SCH (09:16)
[2016-11-01] MEDS: CALCIUM 600MG + VIT D 400 IU TAB PO SCH ×2 (09:16→20:49)
[2016-11-01] MEDS: MULTIVITAMIN TAB PO SCH (09:16)
[2016-11-01] MEDS ORDERED: SODIUM CHLORIDE 0.9% 1000ML 1,000 ML IV SCH (17:30)
[2016-11-01] MEDS: POLYETHYLENE (MIRALAX) 17 GM PACK PO PRN (21:44)
[2016-11-02 01:11] VITALS: BP 174/74; PULSE 72
[2016-11-02] MEDS: CLONIDINE HCL 0.1 MG TAB PO PRN (01:13)
--- NOTE | 2016-11-02 01:14 | Progress Note ---
Medicine Progress Note Date & Time of Visit: Nov 01, 2016 at 13:51. Subjective tolerating PO pain is controlled Objective Last 8 Hrs Date Time Temp Pulse Resp B/P (MAP) Pulse Ox O2 Delivery O2 Flow Rate FiO2 11/01/16 12:03 72 16 160/72 (101) 95 Room Air 11/01/16 08:00 Room Air 11/01/16 07:20 115 16 153/78 (103) 95 11/01/16 07:16 86 16 164/83 (110) 95 Room Air 11/01/16 07:13 36.5 83 16 164/74 (104) 95 Room Air Physical Exam: GEN: WNWD, in no acute distress, alert and appropriate, R arm in sling HEENT: NC/AT, PERRL, normal sclerae CARDIO: reg rate, S1/2 heard without m/g/r LUNGS: CTA bilaterally, no crackles, rales or wheezes, good diaphragmatic excursion ABD: soft, non-tender, non-distended, no rebound or guarding EXTREMITY: RP and DP palpable 2+ bilat, no LE swelling or edema, extremities are warm and well-perfused NEURO: CN 2-12 grossly intact, no gross focal deficits. SKIN: warm and dry, ecchymosis to RUE biceps Laboratory Results: 11/01/16 05:24 11/01/16 05:24 Test 10/31/16 10:00 10/31/16 10:12 10/31/16 11:15 11/01/16 05:24 Immature Granulocyte % (Auto) 0.4 % White Blood Count 12.79 K/uL (4.8-10.8) Red Blood Count 4.09 M/uL (4.2-5.4) 3.66 M/uL (4.2-5.4) Hemoglobin 11.9 g/dL (12.0-16.0) Hematocrit 34.9 % (37-47) Mean Corpuscular Volume 85.3 fL (80-100) 85.8 fL (80-100) Mean Corpuscular Hemoglobin 29.1 pg (25-34) 29.5 pg (25-34) Mean Corpuscular Hemoglobin Concent 34.1 g/dl (32-36) 34.4 g/dl (32-36) Platelet Count 339 K/uL (130-400) Mean Platelet Volume 10.9 fL (7.4-10.4) 10.4 fL (7.4-10.4) Neutrophils (%) (Auto) 88.5 % Lymphocytes (%) (Auto) 4.8 % Monocytes (%) (Auto) 6.1 % Eosinophils (%) (Auto) 0.1 % Basophils (%) (Auto) 0.1 % Neutrophils # (Auto) 11.32 K/uL (1.4-6.5) Lymphocytes # (Auto) 0.62 K/uL (1.2-3.4) Monocytes # (Auto) 0.78 K/uL (0.11-0.59) Eosinophils # (Auto) 0.01 K/uL (0-0.5) Basophils # (Auto) 0.01 K/uL (0-0.2) Immature Granulocyte # (Auto) 0.05 K/uL (0.00-0.02) Prothrombin Time 10.2 SECONDS (9.0-12.0) Prothromb Time International Ratio 1.0 (0.9-1.1) Activated Partial Thromboplast Time 28.8 SECONDS (21.0-31.0) Partial Thromboplastin Ratio 1.1 Osmolality 269 mOsm/kg (280-300) Magnesium Level 1.9 mg/dl (1.8-2.4) Total Bilirubin 0.8 mg/dl (0.2-1) Direct Bilirubin 0.2 mg/dl (0-0.2) Aspartate Amino Transf (AST/SGOT) 21 U/L (15-37) Alanine Aminotransferase (ALT/SGPT) 22 U/L (12-78) Alkaline Phosphatase 79 U/L (45-117) Total Creatine Kinase 106 U/L (26-192) Total Protein 6.9 gm/dl (6.4-8.2) Albumin 3.7 gm/dl (3.4-5.0) 25-Hydroxy Vitamin D Total 22.6 ng/ml (30-100) Thyroid Stimulating Hormone (TSH) 0.848 uIu/ml (0.300-4.500) Bedside Troponin I < 0.030 ng/ml (0-0.045) Urine Color YELLOW Urine Appearance CLEAR (CLEAR) Urine pH 7.0 (4.5-7.5) Urine Specific [place] 1.016 (1.000-1.030) Urine Protein NEG (NEG) Urine Glucose (UA) NEG (NEG) Urine Ketones NEG (NEG) Urine Occult Blood NEG (NEG) Urine Nitrite NEG (NEG) Urine Bilirubin NEG (NEG) Urine Urobilinogen NEG (NEG) Urine Leukocyte Esterase NEG (NEG) Urine Osmolality 403 mOms/kg (500-800) RDW Standard Deviation 41.9 fL (36.4-46.3) RDW Coefficient of Variation 13.2 % (11.5-14.5) Anion Gap 5.0 mmol/L (3-11) Est Creatinine Clear Calc Drug Dose 121.5 ml/min Estimated GFR () 123.8 Estimated GFR (Non- 106.8 BUN/Creatinine Ratio 43.2 (10-20) Calcium Level 8.6 mg/dl (8.5-10.1) Vitamin B12 Level 651 pg/mL (211-911) Folate 15.70 ng/mL (>5.38) Last 24 Hours Test 11/01/16 05:24 White Blood Count 6.28 K/uL Red Blood Count 3.66 M/uL Hemoglobin 10.8 g/dL Hematocrit 31.4 % Mean Corpuscular Volume 85.8 fL Mean Corpuscular Hemoglobin 29.5 pg Mean Corpuscular Hemoglobin Concent 34.4 g/dl RDW Standard Deviation 41.9 fL RDW Coefficient of Variation 13.2 % Platelet Count 295 K/uL Mean Platelet Volume 10.4 fL Sodium Level 132 mmol/L Potassium Level 4.2 mmol/L Chloride Level 100 mmol/L Carbon Dioxide Level 27 mmol/L Anion Gap 5.0 mmol/L Blood Urea Nitrogen 12 mg/dl Creatinine 0.28 mg/dl Est Creatinine Clear Calc Drug Dose 121.5 ml/min Estimated GFR () 123.8 Estimated GFR (Non- 106.8 BUN/Creatinine Ratio 43.2 Random Glucose 91 mg/dl Calcium Level 8.6 mg/dl Vitamin B12 Level 651 pg/mL Folate 15.70 ng/mL Assessment & Plan 86 yo F with multiple falls at home including a fall last night resulting in shoulder injury and humeral head fracture with poss L biceps tendon rupture. 1. R humeral head fracture-pain is controlled, PRN oxy or Tylenol as needed. PT is declining this now. Very restricted active ROM, passive ROM was difficult so will defer more extensive exam to Ortho. ORtho consult placed. PT /OT consulted. Likely refer to rehab-awaiting placement.. Appreciate case management involvement. PT lives alone and has endured at least three falls in the past year. She reports a worsening of her balance. TSH is normal. Will check 25OH vit D, B12 and folate. Defer further workup and rearrangement of medications possibly contributing to outpatient PCP. 2. Biceps tendon rupture-significant ecchymosis to R biceps-appreciate Ortho evaluation and recs. 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 Osteoporosis-cont Ca/D 5. HTN-uncontrolled. Cont lisinopril 10mg PO daily and give hydralazine 5 IV now with close monitoring. Control pain-patient appears to be minimizing. 6. Hypothyroidism-TSH wNL, continue Synthroid at home dose 7. Hypotonic, hypovolemic hyponatremia- 500 cc NS given in ER and will repeat Na tonight and give more IVF if necessary DVT proph-heparin FULL CODE-discussed with she and her son on admission Dispo-to Med/Surg and to rehab after Ortho and PT/OT evals [facility] Medications: Current Inpatient Medications Medications (Trade) Dose Ordered Sig/Guerrero Route Start Time Stop Time Status Last Admin Dose Admin Heparin Sodium (Porcine) (Heparin Sq 5000 Unit/0.5ml) 5,000 unit Q8@0600,1400,2200 SQ 10/31/16 16:30 11/30/16 16:29 11/01/16 13:31 5,000 UNIT Acetaminophen (Tylenol Tab) 650 mg Q4H PRN PO 10/31/16 13:00 11/30/16 12:59 Polyethylene (Miralax Powder Packet) 17 gm DAILY PRN PO 10/31/16 13:00 11/30/16 12:59 Ondansetron HCl (Zofran Inj) 4 mg Q6H PRN IV 10/31/16 13:00 11/30/16 12:59 Miscellaneous (Iv Fluids Completed) 1 ea PRN PRN N/A 10/31/16 14:00 10/31/17 13:59 Levothyroxine Sodium (Synthroid Tab) 50 mcg DAILYBB PO 11/01/16 06:00 12/01/16 05:59 11/01/16 05:42 50 MCG Lisinopril (Zestril Tab) 10 mg DAILY PO 11/01/16 09:00 12/01/16 08:59 11/01/16 09:16 10 MG Multivitamins (Multivitamin Tab) 1 tab DAILY PO 11/01/16 09:00 12/01/16 08:59 11/01/16 09:16 1 TAB Calcium/Vitamin D (Caltrate Plus Tab) 1 tab BID PO 10/31/16 21:00 11/30/16 20:59 11/01/16 09:16 1 TAB Oxycodone HCl (Roxicodone Immediate Rel Tab) 5 mg Q4H PRN PO 10/31/16 15:45 11/14/16 15:44 Tramadol HCl (Ultram Tab) 50 mg Q4H PRN PO 10/31/16 19:00 11/30/16 18:59 11/01/16 07:28 50 MG Ergocalciferol (Vitamin D Cap) 50,000 interunit Q7D PO 11/01/16 09:00 12/01/16 08:59
[2016-11-02 02:57] VITALS: BP_SYST 120; BP_SYST 126; BP_SYST 127; BP_DIAS 64; BP_DIAS 65; BP_DIAS 67; PULSE 112; PULSE 78; PULSE 87; O2SAT 95; O2SAT 96; O2SAT 97
[2016-11-02 05:55] LABS: HEMATOCRIT 29.7 % (37-47); MEAN CELL VOLUME 85.3 fL (80-100); MEAN CORPUSCULAR HEMOGLOBIN 29.3 pg (25-34); MEAN CORPUSCULAR HGB CONC 34.3 g/dl (32-36); MEAN PLATELET VOLUME 10.1 fL (7.4-10.4); PLATELET COUNT 272 K/uL (130-400); RED BLOOD COUNT 3.48 M/uL (4.2-5.4); WHITE BLOOD COUNT 7.04 K/uL (4.8-10.8)
[2016-11-02] MEDS: LEVOTHYROXINE 50 MCG TAB PO SCH (06:07)
[2016-11-02] MEDS: HEPARIN SOD 5000 UNIT/0.5 ML CARP SQ SCH ×3 (06:07→21:33)
[2016-11-02 06:29] LABS: CREATININE 0.26 mg/dl (0.60-1.20)
[2016-11-02 06:30] LABS: BUN/CREATININE RATIO 46.9 (10-20); CALCIUM 8.2 mg/dl (8.5-10.1); POTASSIUM 4.4 mmol/L (3.5-5.1)
[2016-11-02 08:13] VITALS: BP_SYST 135; BP_SYST 165; BP_SYST 167; BP_DIAS 66; BP_DIAS 72; BP_DIAS 74; PULSE 79; PULSE 84; PULSE 90; TEMP 36.5; O2SAT 96
[2016-11-02] MEDS: LISINOPRIL 10 MG TAB PO SCH (08:26)
[2016-11-02] MEDS: CALCIUM 600MG + VIT D 400 IU TAB PO SCH ×2 (08:27→21:30)
[2016-11-02] MEDS: MULTIVITAMIN TAB PO SCH (08:27)
--- NOTE | 2016-11-02 13:07 | Progress Note ---
Internal Med Progress Note Date of Service: Nov 02, 2016. Provider Documentation: SUBJECTIVE: The patient was seen and examined Complains of pain in right UE on movement Frustrated with her condition OBJECTIVE: Vital Signs-as noted below Exam: General-NO distress at rest Eyes-normal ENT-normal Neck-supple Lungs-Clear to auscultate bilaterally Heart-Regular,no murmur Abdomen-Benign,no masses,bowel sound present Extremities-No edema Right UE is in sling Bruising all of the lateral surface of the arm Neuro-AAOx3 Has bilateral legs weakness Left side more than the right Proximal muscle is weaker than the distal Lab data as noted below. ASSESSMENT & PLAN: 86 yo F with multiple falls at home including a fall last night resulting in shoulder injury and humeral head fracture with poss Right biceps tendon rupture. Has Polio with weak legs ,left leg is weaker than the right R humeral head fracture-pain is controlled, -PRN oxy or Tylenol as needed. PT is declining this now. -Appreciate Ortho input -No surgery needed with good alignment and will reevaluate in 7 days as an OP - PT/OT consulted-Recommended Rehab -Right UE is in Sling -Pain control as above Biceps tendon rupture-significant ecchymosis to R biceps-appreciate Ortho evaluation and recs. 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 Cont lisinopril 10mg PO daily and give hydralazine 5 IV now with close monitoring. Control pain-patient appears to be minimizing. Hypothyroidism-TSH wNL, -Continue Synthroid at home dose Hypotonic, hypovolemic hyponatremia- 500 cc NS given in ER and will repeat Na tonight and give more IVF if necessary DVT proph-heparin FULL CODE-discussed with she and her son on admission Dk to peer completed Skilled care approved but not in [facility]. Vital Signs: Date Time Temp Pulse Resp B/P (MAP) Pulse Ox O2 Delivery O2 Flow Rate FiO2 11/02/16 08:13 36.5 79 16 167/72 (103) 96 Room Air 84 165/66 (99) 90 135/74 (94) 11/02/16 07:48 Room Air 11/02/16 02:57 87 18 120/67 (84) 97 Room Air 11/02/16 02:57 112 19 126/64 (84) 95 Room Air 11/02/16 02:57 78 18 127/65 (85) 96 Room Air 11/02/16 01:11 72 174/74 (107) 11/01/16 23:45 Room Air 11/01/16 23:23 36.7 80 16 176/71 (106) 96 Room Air 11/01/16 16:15 Room Air 11/01/16 15:48 36.5 102 20 156/67 (96) 95 Room Air 113 135/70 (91) 90 167/75 (105) Lab Results: Results Past 24 Hours Test 11/02/16 05:41 Range/Units White Blood Count 7.04 4.8-10.8 K/uL Red Blood Count 3.48 4.2-5.4 M/uL Hemoglobin 10.2 12.0-16.0 g/dL Hematocrit 29.7 37-47 % Mean Corpuscular Volume 85.3 80-100 fL Mean Corpuscular Hemoglobin 29.3 25-34 pg Mean Corpuscular Hemoglobin Concent 34.3 32-36 g/dl RDW Standard Deviation 41.8 36.4-46.3 fL RDW Coefficient of Variation 13.4 11.5-14.5 % Platelet Count 272 130-400 K/uL Mean Platelet Volume 10.1 7.4-10.4 fL Sodium Level 131 136-145 mmol/L Potassium Level 4.4 3.5-5.1 mmol/L Chloride Level 101 98-107 mmol/L Carbon Dioxide Level 26 21-32 mmol/L Anion Gap 4.0 3-11 mmol/L Blood Urea Nitrogen 12 7-18 mg/dl Creatinine 0.26 0.60-1.20 mg/dl Est Creatinine Clear Calc Drug Dose 130.8 ml/min Estimated GFR () 126.8 Estimated GFR (Non- 109.4 BUN/Creatinine Ratio 46.9 10-20 Random Glucose 96 70-99 mg/dl Calcium Level 8.2 8.5-10.1 mg/dl
[2016-11-02 17:30] VITALS: BP_SYST 184; BP_SYST 187; BP_SYST 201; BP_DIAS 78; BP_DIAS 82; PULSE 104; PULSE 78; PULSE 85; TEMP 36.4; O2SAT 97
[2016-11-02 18:06] VITALS: BP 152/80
[2016-11-02 23:15] VITALS: BP 161/76; PULSE 79; TEMP 36.6; O2SAT 97
[2016-11-03] VITALS (9 sets, daily range): BP systolic 123–201; BP diastolic 62–99; PULSE 73–101; TEMP 36.1–36.5; O2SAT 94–98
[2016-11-03] MEDS: LEVOTHYROXINE 50 MCG TAB PO SCH (05:23)
[2016-11-03] MEDS: HEPARIN SOD 5000 UNIT/0.5 ML CARP SQ SCH ×3 (05:24→21:49)
[2016-11-03] MEDS: CLONIDINE HCL 0.1 MG TAB PO PRN ×2 (05:59→22:58)
[2016-11-03] MEDS: TRAMADOL HCL 50 MG TAB PO PRN (07:22)
[2016-11-03] MEDS: CALCIUM 600MG + VIT D 400 IU TAB PO SCH ×2 (08:59→21:09)
[2016-11-03] MEDS: MULTIVITAMIN TAB PO SCH (09:00)
[2016-11-03] MEDS: LISINOPRIL 10 MG TAB PO SCH (09:02)
[2016-11-03] MEDS ORDERED: NURSING VERBAL MED ORDER ONE (13:45)
[2016-11-03] MEDS: MECLIZINE HCL 25 MG TAB PO PRN (14:20)
--- NOTE | 2016-11-03 15:11 | Progress Note ---
Internal Med Progress Note Date of Service: Nov 03, 2016. Provider Documentation: SUBJECTIVE: The patient was seen and examined Complains of pain in right UE on movement Denies any sytoms OBJECTIVE: Vital Signs-as noted below Exam: General-No distress at rest Eyes-normal ENT-normal Neck-supple Lungs-Clear to auscultate bilaterally Heart-Regular,no murmur Abdomen-Benign,no masses,bowel sound present Extremities-No edema Right UE is in sling Bruising all of the lateral surface of the arm Neuro-AAOx3 Has bilateral legs weakness Left side more than the right Proximal muscle is weaker than the distal Lab data as noted below. ASSESSMENT & PLAN: 86 yo F with multiple falls at home including a fall last night resulting in shoulder injury and humeral head fracture with poss Right biceps tendon rupture. Has Polio with weak legs ,left leg is weaker than the right R humeral head fracture-pain is controlled, -PRN oxy or Tylenol as needed. PT is declining this now. -Appreciate Ortho input -No surgery needed with good alignment and will reevaluate in 7 days as an OP - PT/OT consulted-Recommended Rehab -Right UE is in Sling as per Ortho -Pain control as above -awaiting to be placed Biceps tendon rupture-significant ecchymosis to R biceps-appreciate Ortho evaluation and recs. 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 Cont lisinopril 10mg PO daily and give hydralazine 5 IV now with close monitoring. On upper side No orthostasis Hypothyroidism-TSH wNL, -Continue Synthroid at home dose Hypotonic, hypovolemic hyponatremia- 500 cc NS given in ER and will repeat Na tonight and give more IVF if necessary DVT proph-heparin FULL CODE-discussed with she and her son on admission Dk to peer completed Skilled care approved but not in [facility]. Likely to be discharged tomorrow Vital Signs: Date Time Temp Pulse Resp B/P (MAP) Pulse Ox O2 Delivery O2 Flow Rate FiO2 11/03/16 10:26 76 154/72 (99) 79 156/70 (98) 94 149/71 (97) 11/03/16 09:01 75 152/66 (94) 11/03/16 07:15 Room Air 11/03/16 07:09 36.1 80 20 147/77 (100) 98 Room Air 11/03/16 05:59 101 17 201/99 (133) 97 Room Air 11/03/16 05:59 73 18 194/67 (109) 94 Room Air 11/03/16 05:59 88 18 200/81 (120) 95 Room Air 11/02/16 23:50 Room Air 11/02/16 23:15 36.6 79 17 161/76 (104) 97 Room Air 11/02/16 19:50 Room Air 11/02/16 18:06 152/80 (104) 11/02/16 17:30 36.4 104 18 201/82 (121) 97 Room Air 11/02/16 17:30 36.4 85 18 187/82 (117) 97 Room Air 11/02/16 17:30 36.4 78 16 184/78 (113) 97 Room Air
[2016-11-03] MEDS ORDERED: LISINOPRIL 5 MG TAB PO ONE (16:00)
[2016-11-04] MEDS: TRAMADOL HCL 50 MG TAB PO PRN (01:52)
[2016-11-04 03:39] VITALS: BP 114/59; PULSE 69; TEMP 36.7; O2SAT 96
[2016-11-04] MEDS: HEPARIN SOD 5000 UNIT/0.5 ML CARP SQ SCH ×3 (05:15→21:24)
[2016-11-04] MEDS: LEVOTHYROXINE 50 MCG TAB PO SCH (05:16)
[2016-11-04] MEDS: MECLIZINE HCL 25 MG TAB PO PRN (05:34)
[2016-11-04 06:14] LABS: HEMATOCRIT 28.5 % (37-47); MEAN CELL VOLUME 84.8 fL (80-100); MEAN CORPUSCULAR HEMOGLOBIN 29.5 pg (25-34); MEAN CORPUSCULAR HGB CONC 34.7 g/dl (32-36); MEAN PLATELET VOLUME 10.1 fL (7.4-10.4); PLATELET COUNT 279 K/uL (130-400); RED BLOOD COUNT 3.36 M/uL (4.2-5.4); WHITE BLOOD COUNT 5.35 K/uL (4.8-10.8)
[2016-11-04] MEDS: CALCIUM 600MG + VIT D 400 IU TAB PO SCH ×2 (08:57→21:22)
[2016-11-04] MEDS: MULTIVITAMIN TAB PO SCH (08:57)
[2016-11-04 09:01] VITALS: BP 145/67; PULSE 85
[2016-11-04] MEDS: LISINOPRIL 10 MG TAB PO SCH (09:02)
--- NOTE | 2016-11-04 11:49 | Progress Note ---
Internal Med Progress Note Date of Service: Nov 04, 2016. Provider Documentation: SUBJECTIVE: The patient was seen and examined Complains of pain in right UE on movement Denies any symptoms today Ready to be discharged today OBJECTIVE: Vital Signs-as noted below Exam: General-No distress at rest Sitting on a chair without any distress Eyes-normal ENT-normal Neck-supple Lungs-Clear to auscultate bilaterally Heart-Regular,no murmur Abdomen-Benign,no masses,bowel sound present Extremities-No edema Right UE is in sling Bruising all of the lateral surface of the arm Neuro-AAOx3 Has bilateral legs weakness Left side more than the right Proximal muscle is weaker than the distal Lab data as noted below. ASSESSMENT & PLAN: 86 yo F with multiple falls at home including a fall last night resulting in shoulder injury and humeral head fracture with poss Right biceps tendon rupture. Has Polio with weak legs ,left leg is weaker than the right R humeral head fracture-pain is controlled, -PRN oxy or Tylenol as needed. PT is declining this now. -Appreciate Ortho input -No surgery needed with good alignment and will reevaluate in 7 days as an OP - PT/OT consulted-Recommended Rehab -Right UE is in Sling as per Ortho -Pain control as above -Will need to see Ortho in 5 days as an OP Biceps tendon rupture-significant ecchymosis to R biceps-appreciate Ortho evaluation and recs. 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 Cont lisinopril 10mg PO daily and give hydralazine 5 IV now with close monitoring. On upper side No orthostasis Increased Lisinopril -BP is controlled Hypothyroidism-TSH wNL, -Continue Synthroid at home dose Hypotonic, hypovolemic hyponatremia- Reasonably stable DVT proph-heparin FULL CODE-discussed with she and her son on admission Dk to peer completed Skilled care approved but not in [facility]. Discharge today Discussed with the Daughter in detailed Vital Signs: Date Time Temp Pulse Resp B/P (MAP) Pulse Ox O2 Delivery O2 Flow Rate FiO2 11/04/16 09:01 85 145/67 (93) 11/04/16 07:25 Room Air 11/04/16 03:39 36.7 69 18 114/59 (77) 96 Room Air 11/03/16 23:20 Room Air 11/03/16 22:44 174/74 (107) 11/03/16 22:43 36.5 81 18 180/76 (110) 95 Room Air 101 155/82 (106) 81 181/82 (115) 173/73 (106) 11/03/16 21:08 144/72 (96) 11/03/16 15:57 147/63 (91) 11/03/16 15:55 Room Air 11/03/16 15:31 36.4 77 16 124/62 (82) 97 Room Air 101 123/78 (93) 78 156/71 (99) Lab Results: Results Past 24 Hours Test 11/04/16 05:58 Range/Units White Blood Count 5.35 4.8-10.8 K/uL Red Blood Count 3.36 4.2-5.4 M/uL Hemoglobin 9.9 12.0-16.0 g/dL Hematocrit 28.5 37-47 % Mean Corpuscular Volume 84.8 80-100 fL Mean Corpuscular Hemoglobin 29.5 25-34 pg Mean Corpuscular Hemoglobin Concent 34.7 32-36 g/dl RDW Standard Deviation 40.2 36.4-46.3 fL RDW Coefficient of Variation 13.1 11.5-14.5 % Platelet Count 279 130-400 K/uL Mean Platelet Volume 10.1 7.4-10.4 fL
[2016-11-04] MEDS ORDERED: RXC5 PO (11:53)
[2016-11-04] MEDS ORDERED: ULT50X PO (11:53)
[2016-11-04] MEDS ORDERED: MRLP17X PO (11:53)
[2016-11-04] MEDS ORDERED: LSN20 PO (11:53)
--- NOTE | 2016-11-04 12:00 | Discharge Instructions ---
Discharge Instructions Date of Service Nov 04, 2016. Admission Reason for Admission: Fracture Of Humeral Head Discharge Discharge Diagnosis / Problem: Right Humeral fracture,S/P Fall,Hyponatremia- improved,HTN,H/O Polio Discharge Goals Goal(s): Prevent Disease Progression Activity Recommendations Activity Level: Assistance Required Therapies: Physical Therapy, Occupational Therapy . Additional Information Patient informed of condition: Yes Advance Directives: No DNR: No Level of Care: Skilled Communicable Disease: No Prognosis: Stable Oxygen at (LPM): 2 liters/min via NC as needed Austin Catheter: No Instructions / Follow-Up Instructions / Follow-Up Please make a follow up appointment with Dr Garcias (Ortho) in 5-7 days . .See your PCP in week following discharge from the Facility Please check PRP (Basic Metabolic Panel) in 3-5 days and report it to the caring physician at the facility or to the PCP Current Hospital Diet Patient's current hospital diet: AHA Diet (Heart Healthy) Discharge Diet Recommended Diet: AHA Diet (Heart Healthy) (Restric fluid to 1500 mls daily.) Fluid Restriction: 1500 ml (6 cups) Pending Studies Studies pending at discharge: no Medical Emergencies . Who to Call and When: Medical Emergencies: If at any time you feel your situation is an emergency, please call 911 immediately. . Non-Emergent Contact Non-Emergency issues call your: Primary Care Provider . Past History Medical & Surgical History: (1) Hypertension (2) Fracture of humeral head (3) Fall (4) Hypothyroidism (5) Osteoporosis (6) S/P lumpectomy of breast (7) History of post-polio syndrome . "Provider Documentation" section prepared by Chely Young. . Core Measure Problem Core Measures: None
[2016-11-04 13:07] LABS: BUN/CREATININE RATIO 29.7 (10-20); CALCIUM 9.1 mg/dl (8.5-10.1); CREATININE 0.32 mg/dl (0.60-1.20); POTASSIUM 4.3 mmol/L (3.5-5.1)
[2016-11-04 13:12] VITALS: BP 145/67; PULSE 85; TEMP 36.7; O2SAT 96
[2016-11-04 15:54] VITALS: BP 127/63; PULSE 78; TEMP 36.5; O2SAT 97
[2016-11-04] MEDS ORDERED: SODIUM CHLORIDE 1 GM TAB PO ONE (18:00)
[2016-11-04 23:30] VITALS: BP 167/75; PULSE 80; TEMP 37; O2SAT 96
[2016-11-05] MEDS: CLONIDINE HCL 0.1 MG TAB PO PRN (00:03)
[2016-11-05 01:38] VITALS: BP 143/70
[2016-11-05] MEDS: LEVOTHYROXINE 50 MCG TAB PO SCH (06:16)
[2016-11-05] MEDS: HEPARIN SOD 5000 UNIT/0.5 ML CARP SQ SCH ×2 (06:37→14:26)
[2016-11-05 07:28] VITALS: BP 131/76; PULSE 61; TEMP 36.7; O2SAT 99
[2016-11-05 08:29] VITALS: BP 169/75; PULSE 74
[2016-11-05] MEDS: LISINOPRIL 10 MG TAB PO SCH (08:31)
[2016-11-05] MEDS: CALCIUM 600MG + VIT D 400 IU TAB PO SCH (08:32)
[2016-11-05] MEDS: MULTIVITAMIN TAB PO SCH (08:32)
[2016-11-05 08:58] LABS: CALCIUM 8.9 mg/dl (8.5-10.1); CREATININE 0.26 mg/dl (0.60-1.20); MAGNESIUM 1.9 mg/dl (1.8-2.4); POTASSIUM 4.4 mmol/L (3.5-5.1)
[2016-11-05] MEDS ORDERED: SODIUM CHLORIDE 1 GM TAB PO SCH (10:00)
[2016-11-05] MEDS ORDERED: SODIUM CHLORIDE 1 GM TAB PO ONE (10:30)
[2016-11-05] MEDS: POLYETHYLENE (MIRALAX) 17 GM PACK PO PRN (10:57)
--- NOTE | 2016-11-05 14:32 | Progress Note ---
Internal Med Progress Note Date of Service: Nov 05, 2016. Provider Documentation: SUBJECTIVE: The patient was seen and examined Complains of pain in right UE on movement Denies any symptoms today Did not go yesterday as Sodium was low at 124 No symptoms reported OBJECTIVE: Vital Signs-as noted below Exam: General-No distress at rest Sitting on a chair without any distress Eyes-normal ENT-normal Neck-supple Lungs-Clear to auscultate bilaterally Heart-Regular,no murmur Abdomen-Benign,no masses,bowel sound present Extremities-No edema Right UE is in sling Bruising all of the lateral surface of the arm Neuro-AAOx3 Has bilateral legs weakness Left side more than the right Proximal muscle is weaker than the distal Lab data as noted below. ASSESSMENT & PLAN: 86 yo F with multiple falls at home including a fall last night resulting in shoulder injury and humeral head fracture with poss Right biceps tendon rupture. Has Polio with weak legs ,left leg is weaker than the right Hyponatremia Sodium was 124 on 11/04/14 126 in AM and will recheck at 2 If >128 will discharge Fluid restriction and regular diet Check PRP in 3-5 days R humeral head fracture-pain is controlled, -PRN oxy or Tylenol as needed. PT is declining this now. -Appreciate Ortho input -No surgery needed with good alignment and will reevaluate in 7 days as an OP - PT/OT consulted-Recommended Rehab -Right UE is in Sling as per Ortho -Pain control as above -Will need to see Ortho in 5 days as an OP Biceps tendon rupture-significant ecchymosis to R biceps-appreciate Ortho evaluation and recs. 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 Cont lisinopril 10mg PO daily and give hydralazine 5 IV now with close monitoring. On upper side No orthostasis Increased Lisinopril -BP is controlled Hypothyroidism-TSH wNL, -Continue Synthroid at home dose Hypotonic, hypovolemic hyponatremia- Reasonably stable DVT proph-heparin FULL CODE-discussed with she and her son on admission Dk to peer completed Skilled care approved but not in [facility]. Discharge today Discussed with the Daughter in detailed Vital Signs: Date Time Temp Pulse Resp B/P (MAP) Pulse Ox O2 Delivery O2 Flow Rate FiO2 11/05/16 08:29 74 169/75 (106) 11/05/16 07:28 36.7 61 17 131/76 (94) 99 Room Air 11/05/16 07:10 Room Air 11/05/16 01:38 143/70 (94) 11/05/16 00:00 Room Air 11/04/16 23:30 37.0 80 18 167/75 (105) 96 Room Air 11/04/16 15:54 36.5 78 18 127/63 (84) 97 Room Air 11/04/16 15:45 Room Air Lab Results: Results Past 24 Hours Test 11/05/16 08:14 11/05/16 14:24 Range/Units Sodium Level 126 136-145 mmol/L Potassium Level 4.4 3.5-5.1 mmol/L Chloride Level 93 98-107 mmol/L Carbon Dioxide Level 28 21-32 mmol/L Anion Gap 5.0 3-11 mmol/L Blood Urea Nitrogen 8 7-18 mg/dl Creatinine 0.26 0.60-1.20 mg/dl Est Creatinine Clear Calc Drug Dose 130.9 ml/min Estimated GFR () 126.8 Estimated GFR (Non- 109.4 BUN/Creatinine Ratio 30.0 10-20 Random Glucose 92 70-99 mg/dl Calcium Level 8.9 8.5-10.1 mg/dl Magnesium Level 1.9 1.8-2.4 mg/dl
[2016-11-05 15:05] LABS: BUN/CREATININE RATIO 19.5 (10-20); CALCIUM 8.4 mg/dl (8.5-10.1); POTASSIUM 4.4 mmol/L (3.5-5.1)
[2016-11-05 15:07] LABS: CREATININE 0.57 mg/dl (0.60-1.20)
[2016-11-05 15:27] VITALS: BP 154/72; PULSE 75; TEMP 36.9; O2SAT 98
--- NOTE | 2016-11-06 10:11 | Discharge Summary ---
Discharge Summary Date of Service Nov 06, 2016. Discharge Summary Admission Date: Nov 04, 2016 at 13:29 Discharge Date: Nov 05, 2016 Discharge Disposition: [facility] facility Principal Diagnosis: Right Humeral fracture,S/P Fall,Hyponatremia-improved,HTN,H/O Polio Secondary Diagnoses/Problems: Please see H&P and Hospital Progress note Consultations: Ortho Medication Reconciliation New Medications: Lisinopril (Lisinopril) 20 Mg Tab 20 MG PO DAILY, #30 Oxycodone HCl (Oxycodone HCl) 5 Mg Tab 5 MG PO Q4H PRN for Pain for 7 Days, #28 TAB Polyethylene (Miralax) 17 Gm Pow 17 GM PO DAILY PRN for Constipation for 30 Days, #30 DOSE Tramadol HCl (Tramadol HCl) 50 Mg Tab 50 MG PO Q4H PRN for Pain for 7 Days, #28 TAB Continued Medications: Calcium Carbonate-Cholecalcife (Calcium 500 +D) 1 Tab Tab 1 TAB PO BID Levothyroxine Sodium (Synthroid) 50 Mcg Tab 50 MCG PO DAILY, TAB Meclizine HCl (Meclizine 25) 25 Mg Tab 25 MG PO TID PRN for Dizziness or Vertigo Multivitamin (Multivitamin) Tab 1 TAB PO DAILY, TAB Discontinued Medications: Lisinopril (Prinivil) 10 Mg Tab 10 MG PO DAILY, TAB Admission Information HPI (per Admitting provider): 86 yo F presents with R arm pain, restricted ROM and possible biceps rupture after a mechanical fall at home last evening while in her garage. She reports feeling off balance which is a long-standing issue she has had for several years , which has caused two other falls in the past year. She denies any loss of consciousness and reports that she only hit her R shoulder, and did not extend her arm out to catch herself. She denies feeling poorly including no chest pain , shortness of breath, headache, abdominal pain, nausea, diarrhea, recent bleeding or blood in stool. She reports feeling lightheaded moreso when going from sitting to standing or sometimes when she is just getting out of bed. With her two prior falls there were no apparent fractures. 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 She does admit to being fearful of showering because she is afraid she will fall. She ambulates with a walker at baseline. Her son is at bedside and assisted with history. She is mentating well and reports that her pain is present but tolerable without the need for medications. She does have a large vertical bruise over her entire R biceps, and she is unable to actively move her R arm. 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 Social History Smoking Status: Never Smoker Smokeless Tobacco Use: No Alcohol Use: none Drug Use: none Marital Status: other Housing status: lives alone Occupational Status: retired Immunizations History of Influenza Vaccine: Yes Influenza Vaccine Date: Feb 04, 2016 History of Tetanus Vaccine?: Yes (4 YRS AGO) Tetanus Immunization Date: Aug 16, 2014 History of Pneumococcal: Yes Pneumococcal Date: Aug 01, 2014 History of Hepatitis B Vaccine: No Multi-Drug Resistant Organisms History of MDRO: No Allergies Coded Allergies: Adhesives (Verified Allergy, Unknown, 10/31/16) Home Medications Scheduled Calcium Carbonate-Cholecalcife (Calcium 500 +D), 1 TAB PO BID Levothyroxine Sodium (Synthroid), 50 MCG PO DAILY Lisinopril (Prinivil), 10 MG PO DAILY Multivitamin (Multivitamin), 1 TAB PO DAILY Scheduled PRN Meclizine HCl (Meclizine 25), 25 MG PO TID PRN for Dizziness or Vertigo Review of Systems Constitutional: + weight loss (chronic, not rapid), No fever, No chills, No fatigue ENT: No problem reported Respiratory: No cough, No shortness of breath Cardiovascular: No chest pain Abdomen: No pain, No nausea, No vomiting, No diarrhea, No GI bleeding Musculoskeletal: + joint pain, + muscle pain (RUE) Genitourinary - Female: No problem reported Neurologic: + balance problems Psychiatric: No problem reported Hematologic / Lymphatic: + abnormal bleeding/bruising (RUE after trauma) Allergic / Immunologic: No food allergies Physical Ex - H&P Physical Exam Vital Signs Date Time Temp Pulse Resp B/P (MAP) Pulse Ox O2 Delivery O2 Flow Rate FiO2 10/31/16 13:22 75 18 176/78 98 Room Air 9/10/17 13:09 98 Room Air 10/31/16 11:30 75 18 179/90 98 Room Air 10/31/16 10:33 73 10/31/16 10:28 74 18 181/89 98 Room Air 10/31/16 09:33 36.7 85 18 183/99 98 Room Air GEN: thin, frail, elderly, in no acute distress, alert and appropriate HEENT: NC/AT, pupils are equal and round bilaterally, normal sclerae/ conjunctivae, MMM CARDIO: reg rate, S1/2 heard without m/g/r LUNGS: CTA bilaterally, no crackles, rales or wheezes, good diaphragmatic excursion ABD: soft, non-tender, non-distended, no rebound or guarding, +BS EXTREMITY: RUE-unable to move with active or passive motion, difficult to get sweater untangled from her arm and was causing her pain so limited exam. Significant bruising noted in her biceps with point tenderness in proximal shoulder. RP and DP palpable 2+ bilat, no LE swelling or edema, extremities are warm and well-perfused. Some L foot drop noted-chronic polio effect, otherwise strength intact NEURO: CN 2-12 grossly intact, sensation intact throughout MUSC: as above. SKIN: warm and dry and ecchymosis in R biceps. Diagnostics - H&P Diagnostics Laboratory Results 10/31/16 10:00 Red Blood Count 4.09, Mean Corpuscular Volume 85.3, Mean Corpuscular Hemoglobin 29.1, Mean Corpuscular Hemoglobin Concent 34.1, Mean Platelet Volume 10.9, Neutrophils (%) (Auto) 88.5, Lymphocytes (%) (Auto) 4.8, Monocytes (%) (Auto) 6.1, Eosinophils (%) (Auto) 0.1, Basophils (%) (Auto) 0.1, Neutrophils # (Auto) 11.32, Lymphocytes # (Auto) 0.62, Monocytes # (Auto) 0.78, Eosinophils # (Auto) 0.01, Basophils # (Auto) 0.01 10/31/16 10:00 Test 10/31/16 10:00 10/31/16 10:12 10/31/16 11:15 White Blood Count 12.79 K/uL (4.8-10.8) Red Blood Count 4.09 M/uL (4.2-5.4) Hemoglobin 11.9 g/dL (12.0-16.0) Hematocrit 34.9 % (37-47) Mean Corpuscular Volume 85.3 fL (80-100) Mean Corpuscular Hemoglobin 29.1 pg (25-34) Mean Corpuscular Hemoglobin Concent 34.1 g/dl (32-36) Platelet Count 339 K/uL (130-400) Mean Platelet Volume 10.9 fL (7.4-10.4) Neutrophils (%) (Auto) 88.5 % Lymphocytes (%) (Auto) 4.8 % Monocytes (%) (Auto) 6.1 % Eosinophils (%) (Auto) 0.1 % Basophils (%) (Auto) 0.1 % Neutrophils # (Auto) 11.32 K/uL (1.4-6.5) Lymphocytes # (Auto) 0.62 K/uL (1.2-3.4) Monocytes # (Auto) 0.78 K/uL (0.11-0.59) Eosinophils # (Auto) 0.01 K/uL (0-0.5) Basophils # (Auto) 0.01 K/uL (0-0.2) RDW Standard Deviation 40.8 fL (36.4-46.3) RDW Coefficient of Variation 13.1 % (11.5-14.5) Immature Granulocyte % (Auto) 0.4 % Immature Granulocyte # (Auto) 0.05 K/uL (0.00-0.02) Anion Gap 4.0 mmol/L (3-11) Est Creatinine Clear Calc Drug Dose 87.2 ml/min Estimated GFR () 111.0 Estimated GFR (Non- 95.8 BUN/Creatinine Ratio 36.7 (10-20) Osmolality 269 mOsm/kg (280-300) Calcium Level 9.2 mg/dl (8.5-10.1) Magnesium Level 1.9 mg/dl (1.8-2.4) Total Bilirubin 0.8 mg/dl (0.2-1) Direct Bilirubin 0.2 mg/dl (0-0.2) Aspartate Amino Transf (AST/SGOT) 21 U/L (15-37) Alanine Aminotransferase (ALT/SGPT) 22 U/L (12-78) Alkaline Phosphatase 79 U/L (45-117) Total Creatine Kinase 106 U/L (26-192) Total Protein 6.9 gm/dl (6.4-8.2) Albumin 3.7 gm/dl (3.4-5.0) 25-Hydroxy Vitamin D Total 22.6 ng/ml (30-100) Thyroid Stimulating Hormone (TSH) 0.848 uIu/ml (0.300-4.500) Bedside Troponin I < 0.030 ng/ml (0-0.045) Urine Color YELLOW Urine Appearance CLEAR (CLEAR) Urine pH 7.0 (4.5-7.5) Urine Specific Ina 1.016 (1.000-1.030) Urine Protein NEG (NEG) Urine Glucose (UA) NEG (NEG) Urine Ketones NEG (NEG) Urine Occult Blood NEG (NEG) Urine Nitrite NEG (NEG) Urine Bilirubin NEG (NEG) Urine Urobilinogen NEG (NEG) Urine Leukocyte Esterase NEG (NEG) Results Past 24 Hours Test 10/31/16 10:00 10/31/16 10:12 10/31/16 11:15 Range/Units White Blood Count 12.79 4.8-10.8 K/uL Red Blood Count 4.09 4.2-5.4 M/uL Hemoglobin 11.9 12.0-16.0 g/dL Hematocrit 34.9 37-47 % Mean Corpuscular Volume 85.3 80-100 fL Mean Corpuscular Hemoglobin 29.1 25-34 pg Mean Corpuscular Hemoglobin Concent 34.1 32-36 g/dl Platelet Count 339 130-400 K/uL Mean Platelet Volume 10.9 7.4-10.4 fL Neutrophils (%) (Auto) 88.5 % Lymphocytes (%) (Auto) 4.8 % Monocytes (%) (Auto) 6.1 % Eosinophils (%) (Auto) 0.1 % Basophils (%) (Auto) 0.1 % Neutrophils # (Auto) 11.32 1.4-6.5 K/uL Lymphocytes # (Auto) 0.62 1.2-3.4 K/uL Monocytes # (Auto) 0.78 0.11-0.59 K/uL Eosinophils # (Auto) 0.01 0-0.5 K/uL Basophils # (Auto) 0.01 0-0.2 K/uL RDW Standard Deviation 40.8 36.4-46.3 fL RDW Coefficient of Variation 13.1 11.5-14.5 % Immature Granulocyte % (Auto) 0.4 % Immature Granulocyte # (Auto) 0.05 0.00-0.02 K/uL Sodium Level 127 136-145 mmol/L Potassium Level 5.0 3.5-5.1 mmol/L Chloride Level 94 98-107 mmol/L Carbon Dioxide Level 29 21-32 mmol/L Anion Gap 4.0 3-11 mmol/L Blood Urea Nitrogen 14 7-18 mg/dl Creatinine 0.39 0.60-1.20 mg/dl Est Creatinine Clear Calc Drug Dose 87.2 ml/min Estimated GFR () 111.0 Estimated GFR (Non- 95.8 BUN/Creatinine Ratio 36.7 10-20 Random Glucose 111 70-99 mg/dl Osmolality 269 280-300 mOsm/kg Calcium Level 9.2 8.5-10.1 mg/dl Magnesium Level 1.9 1.8-2.4 mg/dl Total Bilirubin 0.8 0.2-1 mg/dl Direct Bilirubin 0.2 0-0.2 mg/dl Aspartate Amino Transf (AST/SGOT) 21 15-37 U/L Alanine Aminotransferase (ALT/SGPT) 22 12-78 U/L Alkaline Phosphatase 79 45-117 U/L Total Creatine Kinase 106 26-192 U/L Total Protein 6.9 6.4-8.2 gm/dl Albumin 3.7 3.4-5.0 gm/dl 25-Hydroxy Vitamin D Total 22.6 30-100 ng/ml Thyroid Stimulating Hormone (TSH) 0.848 0.300-4.500 uIu/ml Bedside Troponin I < 0.030 0-0.045 ng/ml Urine Color YELLOW Urine Appearance CLEAR CLEAR Urine pH 7.0 4.5-7.5 Urine Specific Ina 1.016 1.000-1.030 Urine Protein NEG NEG Urine Glucose (UA) NEG NEG Urine Ketones NEG NEG Urine Occult Blood NEG NEG Urine Nitrite NEG NEG Urine Bilirubin NEG NEG Urine Urobilinogen NEG NEG Urine Leukocyte Esterase NEG NEG Diagnostic Radiology CHEST ONE VIEW PORTABLE CLINICAL HISTORY: FALL, RT SHOULDER PAIN trauma. Pain. COMPARISON STUDY: 02/10/2005 FINDINGS: Mild chronic emphysematous change. Mild apical fibrotic change. Increased density left pulmonary apex felt to be overlap artifact. Mild chronic interstitial change left base combined with superimposed atelectatic change. Fracture right humeral neck IMPRESSION: Emphysematous change. Mild interstitial change left base. Note is made of a fracture of the right humeral neck RIGHT SHOULDER MIN 2 VIEWS ROUTINE CLINICAL HISTORY: R shoulder pain, hematoma Right trauma COMPARISON: None. DISCUSSION: Slightly impacted fracture right humeral neck. No evidence of dislocation. All remaining osseous structures are unremarkable. There is no evidence for soft tissue swelling. IMPRESSION: Slightly impacted fracture humeral neck EKG Baseline EKG is pending Impression - H&P Impression Assessment and Plan 86 yo F with multiple falls at home including a fall last night resulting in shoulder injury and humeral head fracture with poss L biceps tendon rupture. 1. R humeral head fracture-pain is controlled, PRN oxy or Tylenol as needed. PT is declining this now. Very restricted active ROM, passive ROM was difficult so will defer more extensive exam to Ortho. ORtho consult placed. PT /OT consulted. Likely refer to rehab. Appreciate case management involvement. PT lives alone and has endured at least three falls in the past year. She reports a worsening of her balance. TSH is normal. Will check 25OH vit D, B12 and folate. Defer further workup and rearrangement of medications possibly contributing to outpatient PCP. 2. Biceps tendon rupture-significant ecchymosis to R biceps-appreciate Ortho evaluation and recs. 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 Osteoporosis-cont Ca/D 5. HTN-uncontrolled. Cont lisinopril 10mg PO daily and give hydralazine 5 IV now with close monitoring. Control pain-patient appears to be minimizing. 6. Hypothyroidism-TSH wNL, continue Synthroid at home dose 7. Hypotonic, hypovolemic hyponatremia- 500 cc NS given in ER and will repeat Na tonight and give more IVF if necessary DVT proph-heparin FULL CODE-discussed with she and her son on admission Dispo-to Med/Surg and to rehab after Ortho and PT/OT evals in am Yana Garces DO [facility] Med/Surg Advanced Directives Existing Living Will: Yes Existing Power of Latex Fashions Designer: Yes (IVONNE SON ) Resuscitation Status FULL RESUSCITATION VTE Prophylaxis VTE Risk Assessment Done? Y/N: Yes Risk Level: Moderate Given or contraindicated: Unfractionated heparin SQ Social Service Consult >80 yr.& Lives Alone Physical Exam (per Admitting): GEN: thin, frail, elderly, in no acute distress, alert and appropriate HEENT: NC/AT, pupils are equal and round bilaterally, normal sclerae/ conjunctivae, MMM CARDIO: reg rate, S1/2 heard without m/g/r LUNGS: CTA bilaterally, no crackles, rales or wheezes, good diaphragmatic excursion ABD: soft, non-tender, non-distended, no rebound or guarding, +BS EXTREMITY: RUE-unable to move with active or passive motion, difficult to get sweater untangled from her arm and was causing her pain so limited exam. Significant bruising noted in her biceps with point tenderness in proximal shoulder. RP and DP palpable 2+ bilat, no LE swelling or edema, extremities are warm and well-perfused. Some L foot drop noted-chronic polio effect, otherwise strength intact NEURO: CN 2-12 grossly intact, sensation intact throughout MUSC: as above. SKIN: warm and dry and ecchymosis in R biceps. Hospital Course 86 yo F with multiple falls at home including a fall last night resulting in shoulder injury and humeral head fracture with poss Right biceps tendon rupture. Has Polio with weak legs ,left leg is weaker than the right Hyponatremia Sodium was 124 on 11/04/14 126 in AM and will recheck at 2 If >128 will discharge Fluid restriction and regular diet Check PRP in 3-5 days R humeral head fracture-pain is controlled, -PRN oxy or Tylenol as needed. PT is declining this now. -Appreciate Ortho input -No surgery needed with good alignment and will reevaluate in 7 days as an OP - PT/OT consulted-Recommended Rehab -Right UE is in Sling as per Ortho -Pain control as above -Will need to see Ortho in 5 days as an OP Biceps tendon rupture-significant ecchymosis to R biceps-appreciate Ortho evaluation and recs. 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 Cont lisinopril 10mg PO daily and give hydralazine 5 IV now with close monitoring. On upper side No orthostasis Increased Lisinopril -BP is controlled Hypothyroidism-TSH wNL, -Continue Synthroid at home dose Hypotonic, hypovolemic hyponatremia- Reasonably stable DVT proph-heparin FULL CODE-discussed with she and her son on admission Dk to peer completed Skilled care approved but not in [facility]. Discharge today Discussed with the Daughter in detailed Total time spent on discharge = 35 minutes This includes examination of the patient, discharge planning, medication reconciliation, and communication with other providers. Discharge Instructions Date of Service Nov 04, 2016. Admission Reason for Admission: Fracture Of Humeral Head Discharge Discharge Diagnosis / Problem: Right Humeral fracture,S/P Fall,Hyponatremia- improved,HTN,H/O Polio Discharge Goals Goal(s): Prevent Disease Progression Activity Recommendations Activity Level: Assistance Required Therapies: Physical Therapy, Occupational Therapy . Additional Information Patient informed of condition: Yes Advance Directives: No DNR: No Level of Care: Skilled Communicable Disease: No Prognosis: Stable Oxygen at (LPM): 2 liters/min via NC as needed Austin Catheter: No Instructions / Follow-Up Instructions / Follow-Up Please make a follow up appointment with Dr Garcias (Ortho) in 5-7 days . .See your PCP in week following discharge from the Facility Please check PRP (Basic Metabolic Panel) in 3-5 days and report it to the caring physician at the facility or to the PCP Current Hospital Diet Patient's current hospital diet: AHA Diet (Heart Healthy) Discharge Diet Recommended Diet: AHA Diet (Heart Healthy) (Restric fluid to 1500 mls daily.) Fluid Restriction: 1500 ml (6 cups) Pending Studies Studies pending at discharge: no Medical Emergencies . Who to Call and When: Medical Emergencies: If at any time you feel your situation is an emergency, please call 911 immediately. . Non-Emergent Contact Non-Emergency issues call your: Primary Care Provider . Past History Medical & Surgical History: (1) Hypertension (2) Fracture of humeral head (3) Fall (4) Hypothyroidism (5) Osteoporosis (6) S/P lumpectomy of breast (7) History of post-polio syndrome . "Provider Documentation" section prepared by Chely Young. . Core Measure Problem Core Measures: None <Electronically signed by Chely Young M.D.> Signed: 11/05/16 3640 Additional Copies To Lance Eugene M.D.
[2016-11-29] MEDS ORDERED: SODIENE PR (08:50)
[2016-11-29] MEDS ORDERED: LISI20TA3 PO (08:50)
[2016-11-29] MEDS ORDERED: ARTIOIN OP (08:50)
[2016-11-29] MEDS ORDERED: POLY335019 PO (08:50)
[2016-11-29] MEDS ORDERED: MOML PO (08:50)
[2016-11-29] MEDS ORDERED: ACET-1311 PO (08:50)
[2016-11-29] MEDS ORDERED: BISA10SU38 PR (08:50)
[2016-12-02] MEDS ORDERED: ULT50X PO (14:34)
[2016-12-02] MEDS ORDERED: RXC5 PO (14:34)
== END 2016-11-05 16:20 | DRG 563 ==
LOC: EDBD 09:25 → C.EDB 09:27 → C.3E 13:00 → ENRESERV 13:31 → OBSVTOIN 11-04 13:29
PROVIDERS: ADMIT Hospitalist; ATTEND Internal Medicine
DX: S42.291A Other displaced fracture of upper end of right humerus, initial encounter for closed fracture (principal); E87.1 Hypo-osmolality and hyponatremia; S46.201A Unspecified injury of muscle, fascia and tendon of other parts of biceps, right arm, initial encounter; I10 Essential (primary) hypertension; E03.9 Hypothyroidism, unspecified; B91 Sequelae of poliomyelitis; M81.0 Age-related osteoporosis without current pathological fracture; M62.81 Muscle weakness (generalized); Y93.01 Activity, walking, marching and hiking; Y92.015 Private garage of single-family (private) house as the place of occurrence of the external cause; W18.39XA Other fall on same level, initial encounter

== ENCOUNTER → 2016-11-24 | Outpatient (CLI) | payer OTHER ==
[~2016-11-24] MED LIST: ACET-1311 PO; ARTIOIN OP; BISA10SU38 PR; CALC-343 PO; LEVO50TA PO; LISI20TA3 PO; LSN20 PO; MECL-91 PO; MOML PO; MRLP17X PO; MULT-506 PO; POLY335019 PO; RXC5 PO; SODIENE PR; ULT50X PO
[2016-11-24 17:52] LABS: URINE APPEARANCE CLOUDY (CLEAR); URINE BILIRUBIN NEG (NEG); URINE COLOR YELLOW; URINE NITRITE NEG (NEG); URINE PH 6.5 (4.5-7.5); URINE SPECIFIC GRAVITY 1.019 (1.000-1.030); UROBILINOGEN NEG (NEG); ZZUR CULT IF INDIC CLEAN CATCH NO
[2016-11-24 17:59] LABS: MANUAL MICROSCOPIC REQUIRED? NO; REVIEW REQ? NO
[2016-11-24 18:07] LABS: BASO % 0.6 %; BASO ABS # 0.04 K/uL (0-0.2); BLOOD UREA NITROGEN 12 mg/dl (7-18); BUN/CREATININE RATIO 32.6 (10-20); CALCIUM 9.1 mg/dl (8.5-10.1); CARBON DIOXIDE 27 mmol/L (21-32); CHLORIDE 97 mmol/L (98-107); COMPLETE YES; CREATININE 0.37 mg/dl (0.60-1.20); EOS % 3.3 %; GLUCOSE 90 mg/dl (70-99); HEMATOCRIT 36.2 % (37-47); IG% 0.1 %; LYMPH % 18.6 %; LYMPH ABS # 1.28 K/uL (1.2-3.4); MEAN CELL VOLUME 88.3 fL (80-100); MEAN CORPUSCULAR HEMOGLOBIN 29.3 pg (25-34); MEAN CORPUSCULAR HGB CONC 33.1 g/dl (32-36); MONO % 10.6 %; NEUT % 66.8 %; PLATELET COUNT 405 K/uL (130-400); POTASSIUM 4.5 mmol/L (3.5-5.1); SODIUM 132 mmol/L (136-145)
[2016-11-24 18:08] LABS: PARTIAL THROMBOPLASTIN RATIO 1.1; PROTHROMBIN TIME (PATIENT) 10.4 SECONDS (9.0-12.0)
== END | disposition home or self-care (01) ==
LOC: C.LABMFLN 13:37
PROVIDERS: ATTEND Orthopaedic Surgery
DX: Z01.818 Encounter for other preprocedural examination (principal)

== ENCOUNTER → 2017-03-03 | Outpatient (CLI) | payer OTHER ==
[~2017-03-03] MED LIST changes: -LSN20 PO; -MRLP17X PO; -MULT-506 PO
[2017-03-03 08:37] LABS: HEMATOCRIT 36.2 % (37-47); MEAN CORPUSCULAR HEMOGLOBIN 28.2 pg (25-34); MEAN CORPUSCULAR HGB CONC 33.1 g/dl (32-36); MEAN PLATELET VOLUME 11.4 fL (7.4-10.4); PLATELET COUNT 310 K/uL (130-400); RED CELL DISTRIBUTION WIDTH SD 43.7 fL (36.4-46.3); WHITE BLOOD COUNT 5.61 K/uL (4.8-10.8)
[2017-03-03 08:47] LABS: BLOOD UREA NITROGEN 13 mg/dl (7-18); CALCIUM 8.9 mg/dl (8.5-10.1); CARBON DIOXIDE 25 mmol/L (21-32); CREATININE 0.28 mg/dl (0.60-1.20); GLUCOSE 91 mg/dl (70-99); POTASSIUM 3.8 mmol/L (3.5-5.1); SODIUM 138 mmol/L (136-145)
== END | disposition home or self-care (01) ==
LOC: C.LABOUTLO 08:14
PROVIDERS: ATTEND Internal Medicine
DX: E03.9 Hypothyroidism, unspecified (principal)

== ENCOUNTER → 2017-06-23 | Outpatient (CLI) | payer OTHER, BC | END | disposition home or self-care (01) | LOC: C.LABOUTLO 08:52 | PROVIDERS: ATTEND Internal Medicine | DX: N39.0 Urinary tract infection, site not specified (principal) ==

== ENCOUNTER 2018-12-26 19:28 | Inpatient (IN) ==
--- OUTSIDE RECORDS SUMMARY | 2018-12-26 19:31 | External Medical Summary | Continuity of Care Document ---
:1930 Author Name Adamaris Baker Address Unavailable Unavailable , Care Team Providers Name Role Phone [facility] M.D. Unavailable [email or web address] Active medical history not documented Allergies and Adverse Reactions Allergy history not documented Medications Medications not documented Procedures Procedures not documented Immunizations Immunizations not documented Plan of Treatment Planned Observations Planned Goals not documented Results No Known Results Results not documented
[2018-12-26] MEDS ORDERED: SODIUM CHLORIDE 0.9% 500 ML IV SCH ×2 (20:15→23:00)
[2018-12-26 20:31] LABS: Basophils # (auto) 0.02 K/uL (0-0.2); Basophils % (auto) 0.2 %; Eosinophils # (auto) 0.01 K/uL (0-0.5); Eosinophils % (auto) 0.1 %; Hematocrit (blood only) 37.1 % (37-47); Hemoglobin 12.7 g/dL (12.0-16.0); Immature Granulocytes # (auto) 0.01 K/uL (0.00-0.02); Immature Granulocytes % (auto) 0.1 %; Lymphocytes # (auto) 0.47 K/uL (1.2-3.4); Lymphocytes % (auto) 3.9 %; Mean Corpuscular Hemoglobin 30.3 pg (25-34); Mean Corpuscular Hgb Conc 34.2 g/dL (32-36); Mean Corpuscular Volume 88.5 fL (80-100); Mean Platelet Volume 11.6 fL (7.4-10.4); Monocytes # (auto) 0.43 K/uL (0.11-0.59); Monocytes % (auto) 3.5 %; Neutrophils # (auto) 11.19 K/uL (1.4-6.5); Neutrophils % (auto) 92.2 %; Platelet Count 328 K/uL (130-400); RDW Coefficient of Variation 13.2 % (11.5-14.5); RDW Standard Deviation 42.9 fL (36.4-46.3); Red Blood Count 4.19 M/uL (4.2-5.4); White Blood Count 12.13 K/uL (4.8-10.8)
[2018-12-26 20:41] LABS: Partial Thromboplastin Ratio 0.9; Partial Thromboplastin Time 24.9 Seconds (21.0-31.0); Prothrombin Time 10.1 Seconds (9.0-12.0)
[2018-12-26 20:48] LABS: Albumin Level 3.7 gm/dl (3.4-5.0); BUN Creatinine Ratio 31.1 (10-20); Bilirubin Direct 0.2 mg/dl (0-0.2); Calcium 9.6 mg/dl (8.5-10.1); Creatinine Clr Calc Pharmacy 50.2 ml/min; Est GFR (African American) 98.9; Est GFR (Non-African American) 85.4; Potassium 4.3 mmol/L (3.5-5.1)
[2018-12-26] MEDS ORDERED: IOVERSOL 100ml IV PRN (20:55)
[2018-12-26 20:59] LABS: Bilirubin,Total 0.4 mg/dl (0.2-1); Total Protein 6.9 gm/dl (6.4-8.2); Troponin I 7.69 ng/ml (0-0.045)
--- NOTE | 2018-12-26 21:23 | XRay Report ---
SINGLE VIEW CHEST CLINICAL HISTORY: Atypical chest pain. FINDINGS: An AP, portable, upright chest radiograph is compared to study dated 10/31/2016 . The examin ation is degraded by portable technique and patient rotation. The heart is top normal for projection noting atherosclerotic calcification of the thoracic aorta. The pulmonary vasculature is noncongested . Chronic interstitial thickening is similar to previous. There is bibasilar scarring/atelectasis. No airspace consolidation or large pleural effusion is identified. No pneumothorax is seen. The skeleta l structures are osteopenic. There are healed right-sided rib fractures. Postoperative change is part ially visualized in the right humerus. IMPRESSION: No acute cardiopulmonary abnormality. Electronically signed by: Reagan Nesbitt M.D. 12/26/2018 9:22 PM
[2018-12-26] MEDS ORDERED: ASPIRIN CHEW 324 MG PO STA (21:28)
[2018-12-26] MEDS ORDERED: MoRPHine SULFATE 4 MG/ML 1 ML CARP\\VIAL IV STA (21:30)
[2018-12-26] MEDS ORDERED: ONDANSETRON INJ 2 MG/ML 2 ML VIAL IV STA (21:33)
[2018-12-26] MEDS ORDERED: MoRPHine SULFATE 2 MG/ML CARP IV STA (21:33)
[2018-12-26] MEDS ORDERED: MIDAZOLAM HCL 1 MG/ML 2ML VIAL ONE (21:38)
[2018-12-26] MEDS ORDERED: fentaNYL citrate 100 MCG/2 ML VIAL ONE (21:38)
[2018-12-26] MEDS ORDERED: NiCARDipine HCL INJ 2.5 MG/ML 10 ML AMP ONE (21:38)
[2018-12-26] MEDS ORDERED: HEPARIN (PORCINE) 1000 UNIT/ML 10 ML (CATH LAB USE ONLY) ONE (21:38)
[2018-12-26] MEDS ORDERED: NITROGLYCERIN/D5W 100MCG/ML 20ML SYR ONE (21:39)
--- NOTE | 2018-12-26 21:45 | CT Scan Report ---
CT SCAN OF THE ABDOMEN AND PELVIS WITH IV CONTRAST CLINICAL HISTORY: Generalized abdominal pain. COMPARISON STUDY: No priors. TECHNIQUE: Following the IV administration of 92 cc of Optiray 320, CT scan of the abdomen and pelvi s is performed from the lung bases to the proximal femora. Images are reviewed in the axial, sagittal , and coronal planes. IV contrast was administered without complication. A dose lowering technique wa s utilized adhering to the principles of ALARA. The examination is degraded by streak artifact from t he arms which could not be elevated above the abdomen or pelvis. There is also motion artifact. CT DOSE: 353.09 mGy.cm FINDINGS: Lung bases: The heart is normal in size and without pericardial effusion. Subpleural reticulation and mild fibrotic change is noted at the lung bases. There is no airspace consolidation or pleural effus ion. There are coronary artery calcifications. Liver: The contrast-enhanced liver is enlarged, measuring 20.9 cm in length. The liver is otherwise n ormal in contour and attenuation. There is no intrahepatic biliary ductal dilatation. The hepatic vei ns and portal veins are patent. Gallbladder: Unremarkable. Spleen: Normal in size and attenuation. Pancreas: Atrophic and grossly unremarkable. Adrenal glands: Unremarkable. Kidneys: The contrast enhanced kidneys are atrophic and without hydronephrosis. The kidneys enhance s ymmetrically. There are numerous subcentimeter there are numerous cortical hypodensities which measur e up to 11 mm. These likely represent cysts but cannot be definitively characterized due to small siz e and streak artifact. Abdominal vasculature: There is advanced atherosclerotic calcification mild ectasia of the abdominal aorta. Bowel: There is rectosigmoid fecal retention and moderate constipation. No bowel obstruction is ident ified. The appendix is not identified. There is mild infiltration of the perianal soft tissues. Intr acranial fluid collection is seen. Peritoneum: There is no intraperitoneal free air or abdominal ascites. Lymphadenopathy: None. Pelvic viscera: The bladder is normal as visualized. The uterus is heterogeneous and the endometrium is prominent for age, measuring up to 11 mm in thickness. No adnexal lesion is seen. Skeletal structures: The skeletal structures are heterogeneously osteopenic. Mild lumbosacral spondyl osis is observed. No lytic or blastic lesions are seen. Soft tissues: The patient is cachectic. IMPRESSION: 1. Streak and motion degraded examination. The examination is also compromised by cachexia and a pauc ity of intraperitoneal fat. 2. There is rectosigmoid fecal retention and moderate constipation. No bowel obstruction is seen. 3. There is mild infiltration of the perianal soft tissues. No perianal fluid collection is identifie d. Correlation with direct visualization is recommended. 4. The uterus is heterogeneous and the endometrium appears thickened for age. This is not well assess ed by CT and follow-up with a nonemergent pelvic ultrasound is recommended for further assessment. 5. Additional findings as above. Electronically signed by: Reagan Nesbitt M.D. 12/26/2018 9:44 PM
[2018-12-26 21:51] LABS: Appearance Urine Cloudy (Clear); Bacteria Urine Automated Negative (Negative); Bilirubin Urine Negative (Negative); Blood Urine Negative (Negative); Color Urine Yellow; Glucose Urine UA Negative (Negative); Ketones Urine Negative (Negative); Leukocyte Esterase Urine Negative (Negative); Nitrite Urine Negative (Negative); Protein Urine Negative (Negative); Specific Gravity Urine 1.035 (1.000-1.030); Urobilinogen Urine Negative (Negative)
[2018-12-26] MEDS ORDERED: ATROPINE SULFATE 0.1 MG/ML 10ML SYR IV ONE (22:10)
[2018-12-26] MEDS ORDERED: CLOPIDOGREL BISULFATE 300 MG TAB ONE (22:35)
[2018-12-26] MEDS ORDERED: ICU PROTOCOL FOR HYPERGLYCEMIA PRN (22:46)
--- NOTE | 2018-12-26 22:46 | Pre Anesthesia Assessment ---
Date of Service December 26, 2018 Pre Sedation Assessment Vital Signs Temp Pulse Pulse Resp BP BP Pulse Ox 12/26/18 21:45 80 19 163/85 H 100 12/26/18 21:41 79 22 100 12/26/18 21:40 81 17 154/83 H 12/26/18 21:30 87 18 12/26/18 21:29 98 12/26/18 21:20 93 H 21 12/26/18 21:10 88 16 97 12/26/18 21:06 91 H 84 18 151/91 H 151/91 H 96 12/26/18 21:05 83 19 12/26/18 20:50 97 12/26/18 20:40 74 17 97 12/26/18 20:35 73 18 128/69 98 12/26/18 20:30 73 17 97 12/26/18 20:20 75 18 98 12/26/18 20:10 80 16 98 12/26/18 20:00 91 H 19 97 12/26/18 19:50 82 21 97 12/26/18 19:40 82 17 97 12/26/18 19:37 85 20 97 12/26/18 19:36 98.6 F 83 20 152/79 H 98 12/26/18 19:33 82 19 152/79 H 98 Cardiovascular RRR, no murmur, no edema Respiratory normal respiratory effort, lungs clear to auscultation Pre-Sedation Airway Assessment Smoking Status: Never smoker Hx Sleep Apnea: No Hx Difficult Intubation: No Short, Thick Neck: No Thyromental Distance: > or= 3.5 Finger Breadths Oral Cavity: + WNL Mallampati Class: III ASA: ASA4 Procedure Planning Contraindications for Sedation: none Current Medications Reviewed: Yes Notes The planned sedation has been discussed with the patient. Informed Consent was obtained. I have identified the patient, determined the appropriateness of sedation and have assessed the patient immediately prior to the procedure. All medicine(s) and interventions are by my order.
[2018-12-26] MEDS ORDERED: ACETAMINOPHEN 325 MG TAB PO PRN (22:50)
[2018-12-26] MEDS ORDERED: ONDANSETRON INJ 2 MG/ML 2 ML VIAL IV PRN (22:50)
--- NOTE | 2018-12-26 23:07 | Cardiology Consultation ---
Date of Consultation December 26, 2018 Assessment & Plan (1) ST elevation (STEMI) myocardial infarction: Troponin and EKG consistent with ACS and suggestive of inferior RI. Patient is DNR/DNI. Dr. Sal in the emergency department discussed cardiac catheterization with patient's son and daughter who voiced to him their wish for patient to undergo any procedures.necessary including possible cardiac catheterization. Patient at time of interview continues to localize pain to her chest and voiced agreement with proceeding with cardiac catheterization as well. We will plan on diagnostic angiography via right radial artery. If multivessel disease or disease appearing more chronic in nature we will plan to medically manage. Further recommendations pending findings of coronary angiography. History of Present Illness Attending Physician: Gen Stallworth MD History of Present Illness 88-year-old woman here with abdominal pain and general symptoms found to have an elevated troponin and ECG concerning for acute RI. Patient seen emergently in the ED after heart alert activated 2 hours post ED arrival. Patient has dementia and resides at [facility]. She is a limited historian. No apparent prior cardiac history. Had a prior echocardiogram in November 2016 which showed preserved LV function, mild LVH and grade 1 diastolic dysfunction. Cardiac risk factors include hypertension and dyslipidemia. Other medical issues include hypothyroidism, osteoporosis, esophageal stricture post dilation. Patient was sent over to ED due to complaints of abdominal pain today. Initially expressed concerns regarding constipation need for an enema. Reported later on described diffuse chest pain for days. Son reports that patient has had exertional dyspnea for weeks. Initial troponin on presentation elevated at 7.69. EKG showed sinus rhythm with occasional PVC and inferior Q waves with ST elevations. Patient given aspirin, morphine, Zofran in the ED. Allergies Allergy/AdvReac Type Severity Reaction Status Date / Time adhesive Allergy Mild RASH Verified 12/26/18 20:18 latex Allergy Mild RASH Verified 12/26/18 20:18 diclofenac Allergy Unknown Verified 12/26/18 20:22 fenofibrate Allergy Unknown Verified 12/26/18 20:22 lisinopril Allergy Unknown Verified 12/26/18 20:22 Penicillins Allergy Unknown Verified 12/26/18 20:22 rosuvastatin [From Crestor] Allergy Unknown Verified 12/26/18 20:22 sulfamethoxazole Allergy Unknown Verified 12/26/18 20:22 [From Bactrim] trimethoprim [From Bactrim] Allergy Unknown Verified 12/26/18 20:22 Home Medications Home Medications Medication Instructions Recorded Confirmed Type acetaminophen [Tylenol] 650 mg PO QID PRN 12/26/18 12/26/18 History amlodipine [Norvasc] 5 mg PO DAILY 12/26/18 12/26/18 History calcium carbonate-vitamin D3 2 tab PO DAILY 12/26/18 12/26/18 History [Oysco 500/D] cyclosporine [Restasis] 1 drp OPB TID PRN 12/26/18 12/26/18 History dextran 70-hypromellose (PF) 1 drp OPB BID PRN 12/26/18 12/26/18 History [Artificial Tears (PF)] diphenhydramine HCl [Banophen] 25 mg PO Q8H PRN 12/26/18 12/26/18 History food supplemt, lactose-reduced 1 ea PO TIDM 12/26/18 12/26/18 History [Boost] levothyroxine 50 mcg PO DAILY 12/26/18 12/26/18 History meclizine 25 mg PO TID PRN 12/26/18 12/26/18 History menthol-zinc oxide [Calmoseptine] 1 applic TOPICAL DAILY PRN 12/26/18 12/26/18 History multivitamin 1 tab PO DAILY 12/26/18 12/26/18 History senna 8.6 mg PO Q OTHER DAY PRN 12/26/18 12/26/18 History Patient History Medical History Hypertension (Chronic) Fracture of humeral head 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" Osteoporosis (Chronic) Hypothyroidism (Chronic) Chest pain Dyslipidemia (Chronic) Hyponatremia Proximal humerus fracture History of post-polio syndrome (Chronic) Dementia Surgical History S/P lumpectomy of breast (Chronic) S/P tubal ligation (Chronic) History of cataract surgery (Chronic) S/P tonsillectomy and adenoidectomy (Chronic) H/O hemorrhoidectomy (Chronic) S/P dilatation of esophageal stricture (Chronic) Family History Other Family history non-contributory Social History Current Living Situation: Other Current Living Situation Comment: [place] Feels Safe at Home: Yes Smoking Status: Never smoker Hx Substance Use: No Review of Systems Review of Systems: Not obtained in the setting of emergent situation and patient's baseline dementia Physical Exam Physical Exam: General: Comfortable, no acute distress, thin, frail HEENT: Sclerae anicteric, mucous membranes dry Lungs: Clear to auscultation bilaterallyes Cardiac: Regular rate and rhythm, no murmurs. Abdomen: Soft, mild diffuse tenderness, nondistended Extremities: Warm, well perfused, no edema. 2+ radial pulses Skin: No rashes or lesions. Neuro: Nonfocal Psych: Alert and oriented to self Results & Data Vital Signs (Past 12 Hours) Vital Signs Temp Pulse Pulse Resp BP BP Pulse Ox 12/26/18 21:45 80 19 163/85 H 100 12/26/18 21:41 79 22 100 12/26/18 21:40 81 17 154/83 H 12/26/18 21:30 87 18 12/26/18 21:29 98 12/26/18 21:20 93 H 21 12/26/18 21:10 88 16 97 12/26/18 21:06 91 H 84 18 151/91 H 151/91 H 96 12/26/18 21:05 83 19 12/26/18 20:50 97 12/26/18 20:40 74 17 97 12/26/18 20:35 73 18 128/69 98 12/26/18 20:30 73 17 97 12/26/18 20:20 75 18 98 12/26/18 20:10 80 16 98 12/26/18 20:00 91 H 19 97 12/26/18 19:50 82 21 97 12/26/18 19:40 82 17 97 12/26/18 19:37 85 20 97 12/26/18 19:36 98.6 F 83 20 152/79 H 98 12/26/18 19:33 82 19 152/79 H 98 PG Care Time/CCT Total # of Minutes Spent Total Time Spent with Patient: Total time spent is greater than 50% in coordination of care (as documented) at patient's floor/unit and/or counseling patient: (1) ST elevation (STEMI) myocardial infarction Involved coronary artery: unspecified coronary artery Qualified Code(s): I21.3 - ST elevation (STEMI) myocardial infarction of unspecified site
--- NOTE | 2018-12-26 23:13 | Cardiac Catheterization ---
ACC Data: Tankage Supervisor Cardiac Status Clinical evaluation leading to the procedure CAD Presenation: STEMI Anginal Classification: CCS IV Heart Failure: No Cardiogenic Shock within 24 Hours: No Cardiac Arrest within 24 Hours: No Imaging Studies Past 6 Months: No Stress Studies Past 6 Months: No Diagnostic Physicians Name: Gen Stallworth MD Status: Emergency Closure Device Percutaneous Entry Location: Radial Closure Device: Radial Band Recommendations: PCI without planned CABG PCI Indication: Immediate PCI for STEMI First Noted: First EKG Reason For Delay in PCI:: Patient delays in providing consent Lesion Segment Name: Proximal RCA Culprit Artery: Yes Stenosis Prior to Rx (%): 100 Chronic Total Occlusion: No IVUS: No FFR: No Pre-Procedure ZEINAB Flow: 0 Previously Treated Lesion: No Lesion Complexity: Non-High/Non-C Lesion Length (mm): 30 Thrombus Present: Yes Bifurcation Lesion: No Guidewire Across Lesion: Stenosis Post-Procedure (%): 0 Post-Procedure ZEINAB Flow: 3 Devices(s) Deployed: Yes Yes Intraprocedure Events Significant Disection: No Perforation: No Cardiac Cath Procedure Full Procedure Date December 26, 2018 Pre-Procedure Diagnosis Pre-Procedure Diagnosis: STEMI AUC Score AUC Score: 9 Post-Procedure Diagnosis Post-Procedure Diagnosis: Severe CAD Procedure(s) Performed Procedure(s) Performed: Coronary Angiography, Left Heart Cath and Drug Eluting Stent [employer] Gen Stallworth MD Cotton Washer(s) Hansel Estimated Blood Loss Estimated Blood Loss: 15 Medication(s) Medication(s): Clopidogrel, Fentanyl, Heparin, Lidocaine 1%, Nicardipine and Nitroglycerin Summary of Findings Indication: STEMI/Heart Alert Access: 6 Fr slender right radial Catheters: Corinne, JR4 guide Findings: LM -angulated, 40% proximal LAD -moderate caliber vessel, proximal luminal irregularities, 70-80% mid segment disease after takeoff of moderate caliber third diagonal. Distal luminal irregularities. Septals give rise to faint collaterals to PDA. 40-50% ostial stenosis of moderate first diagonal Circumflex -small caliber vessel. Gives off 3 small OM's without significant disease. RCA -dominant, large caliber vessel, 100% proximal occlusion LVEDP -11 -- PCI -- Antithrombotic therapy: Heparin, clopidogrel Procedure: RCA cannulated with JR4 guide Data Entry Representative 50 wire passed across lesion into distal vessel Proximal RCA lesion predilated with 2.5 compliant balloon Dilated lesion stented with 3.5 x 38 mm Kaushik drug-eluting stent Stent post-dilated with stent balloon IC vasodilators administered for spasm Post procedure ZEINAB 3 flow, stent well expanded with minimal residual stenosis. Some showering of distal thrombus noted in PLB's. Arterial Closure: TR band Summary: 1. Inferior STEMI/100% acute on chronic proximal RCA occlusion 2. Severe non-culprit coronary artery disease -70-80% mid LAD Angulated left main with 40% proximal stenosis 3. Normal intracardiac filling pressure 4. Successful PCI of proximal to mid RCA with single drug-eluting stent (3.5 x 38 mm Kaushik). Recommendations: Admit to ICU for continued monitoring Loaded with clopidogrel 600 mg in cath Continue dual-antiplatelet therapy for at least 1 year. Trend troponins until peak, Check Echo Uptitrate beta-antonio, start ARB as BP allows High-dose statin Hemodynamics Rest Ao:: 120/15/90 Final Ao: 147/65/100 LV: 128/11 Recommendations Recommendations: PCI without planned CABG Specimens Specimens: None Radiation Exposure (mGy) 363 Contrast (mls) 75 Fluids (cc crystalloids) Fluids (cc crystalloids): 60 Drains Drains: None Anesthesia Moderate Procedural Complication(s) None Disposition ICU I attest to the content of the Intraoperative Record and any orders documented therein. Any exceptions are noted below.
[2018-12-26] MEDS ORDERED: METOPROLOL TARTRATE 1 MG/ML VIAL IV STA (23:50)
[2018-12-26] MEDS ORDERED: METOPROLOL TARTRATE 1 MG/ML VIAL IV ONE (23:52)
--- NOTE | 2018-12-26 23:54 | Emergency Department Note ---
Entered by Malini Chowdary acting as a scribe for History of Present Illness General Chief complaint: Abdominal Pain Stated complaint: ABD PAIN Time Seen by Provider: 12/26/18 19:57 History of Present Illness Provider complaint: abdominal pain Onset (ago): unknown Location: abdomen Pain Consistency: + other (episode) Maximum Pain Intensity: 1 Associated symptoms: + denies other symptoms (pain, vomiting) and + other ("heart hurts") The patient is an 88 year old female who presents to the ED with complaints of an episode of abdominal pain that started at an unknown time. Per nursing staff, the patient denies pain and vomiting. Patient currently denies any abdominal pain. She states that her pain is in her right chest. HPI and ROS limited secondary to dementia. Home Medications Home Medications Medication Instructions Recorded Confirmed Type acetaminophen [Tylenol] 650 mg PO QID PRN 12/26/18 12/26/18 History amlodipine [Norvasc] 5 mg PO DAILY 12/26/18 12/26/18 History calcium carbonate-vitamin D3 2 tab PO DAILY 12/26/18 12/26/18 History [Oysco 500/D] cyclosporine [Restasis] 1 drp OPB TID PRN 12/26/18 12/26/18 History dextran 70-hypromellose (PF) 1 drp OPB BID PRN 12/26/18 12/26/18 History [Artificial Tears (PF)] diphenhydramine HCl [Banophen] 25 mg PO Q8H PRN 12/26/18 12/26/18 History food supplemt, lactose-reduced 1 ea PO TIDM 12/26/18 12/26/18 History [Boost] levothyroxine 50 mcg PO DAILY 12/26/18 12/26/18 History meclizine 25 mg PO TID PRN 12/26/18 12/26/18 History menthol-zinc oxide [Calmoseptine] 1 applic TOPICAL DAILY PRN 12/26/18 12/26/18 History multivitamin 1 tab PO DAILY 12/26/18 12/26/18 History senna 8.6 mg PO Q OTHER DAY PRN 12/26/18 12/26/18 History Allergies Allergy/AdvReac Type Severity Reaction Status Date / Time adhesive Allergy Mild RASH Verified 12/26/18 20:18 latex Allergy Mild RASH Verified 12/26/18 20:18 diclofenac Allergy Unknown Verified 12/26/18 20:22 fenofibrate Allergy Unknown Verified 12/26/18 20:22 lisinopril Allergy Unknown Verified 12/26/18 20:22 Penicillins Allergy Unknown Verified 12/26/18 20:22 rosuvastatin [From Crestor] Allergy Unknown Verified 12/26/18 20:22 sulfamethoxazole Allergy Unknown Verified 12/26/18 20:22 [From Bactrim] trimethoprim [From Bactrim] Allergy Unknown Verified 12/26/18 20:22 Past Med/Surg History Medical History Hypertension (Chronic) Fracture of humeral head 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" Osteoporosis (Chronic) Hypothyroidism (Chronic) Chest pain Dyslipidemia (Chronic) Hyponatremia Proximal humerus fracture History of post-polio syndrome (Chronic) Dementia Surgical History S/P lumpectomy of breast (Chronic) S/P tubal ligation (Chronic) History of cataract surgery (Chronic) S/P tonsillectomy and adenoidectomy (Chronic) H/O hemorrhoidectomy (Chronic) S/P dilatation of esophageal stricture (Chronic) Family History Other Family history non-contributory Social History Preferred Language: Bhutanese Communication Ability: Effective Dial Lathe Operator Required: No Beliefs That Will Affect Care: None Current Living Situation: Personal Care Facility Current Living Situation Comment: [facility] Other Information That Helps Us Care for You: No Feels Safe at Home: Yes Safety Concerns: Feels Safe At This Time Smoking Status: Never smoker Do You Dip or Chew Tobacco: No ; Second Hand Exposure: No ; Tobacco Cessation Education Requested by Patient: No Hx Alcohol Use: No Hx Substance Use: No Review of Systems See HPI for pertinent positives & negatives. HPI and ROS limited secondary to dementia. Physical Exam Vital Signs Vital Signs - 24 hr 12/26/18 19:33 12/26/18 19:36 12/26/18 19:37 Temperature 37.0 C Temperature Source Oral Sepsis Recent Fever Within 48 Hours No Sepsis New/Unexplained Change in Mental Status No Sepsis Action Taken by Nursing No Action Required Oxygen Flow Rate - Titration Pulse Oximetry Post Tiitration Pulse Rate 82 83 85 Pulse Rate [Left Finger] Pulse Rate from SpO2 Sensor 81 84 Pulse Rhythm [Left Finger] Pulse Strength [Left Finger] Respiratory Rate 19 20 20 Respiratory Effort / Characteristics Respiratory Depth Respiratory Pattern Blood Pressure 152/79 H 152/79 H Blood Pressure [Left Arm] Blood Pressure Mean 103 103 Blood Pressure Mean [Left Arm] Blood Pressure Position Sitting Blood Pressure Position [Left Arm] Pulse Oximetry 98 98 97 Oxygen Delivery Method Room Air 12/26/18 19:40 12/26/18 19:50 12/26/18 20:00 Temperature Temperature Source Sepsis Recent Fever Within 48 Hours Sepsis New/Unexplained Change in Mental Status Sepsis Action Taken by Nursing Oxygen Flow Rate - Titration Pulse Oximetry Post Tiitration Pulse Rate 82 82 91 H Pulse Rate [Left Finger] Pulse Rate from SpO2 Sensor 86 81 95 H Pulse Rhythm [Left Finger] Pulse Strength [Left Finger] Respiratory Rate 17 21 19 Respiratory Effort / Characteristics Respiratory Depth Respiratory Pattern Blood Pressure Blood Pressure [Left Arm] Blood Pressure Mean Blood Pressure Mean [Left Arm] Blood Pressure Position Blood Pressure Position [Left Arm] Pulse Oximetry 97 97 97 Oxygen Delivery Method 12/26/18 20:10 12/26/18 20:20 12/26/18 20:30 Temperature Temperature Source Sepsis Recent Fever Within 48 Hours Sepsis New/Unexplained Change in Mental Status Sepsis Action Taken by Nursing Oxygen Flow Rate - Titration Pulse Oximetry Post Tiitration Pulse Rate 80 75 73 Pulse Rate [Left Finger] Pulse Rate from SpO2 Sensor 80 76 72 Pulse Rhythm [Left Finger] Pulse Strength [Left Finger] Respiratory Rate 16 18 17 Respiratory Effort / Characteristics Respiratory Depth Respiratory Pattern Blood Pressure Blood Pressure [Left Arm] Blood Pressure Mean Blood Pressure Mean [Left Arm] Blood Pressure Position Blood Pressure Position [Left Arm] Pulse Oximetry 98 98 97 Oxygen Delivery Method 12/26/18 20:35 12/26/18 20:40 12/26/18 20:50 Temperature Temperature Source Sepsis Recent Fever Within 48 Hours Sepsis New/Unexplained Change in Mental Status Sepsis Action Taken by Nursing Oxygen Flow Rate - Titration Pulse Oximetry Post Tiitration Pulse Rate 73 74 Pulse Rate [Left Finger] Pulse Rate from SpO2 Sensor 73 74 74 Pulse Rhythm [Left Finger] Pulse Strength [Left Finger] Respiratory Rate 18 17 Respiratory Effort / Characteristics Respiratory Depth Respiratory Pattern Blood Pressure 128/69 Blood Pressure [Left Arm] Blood Pressure Mean 88 Blood Pressure Mean [Left Arm] Blood Pressure Position Blood Pressure Position [Left Arm] Pulse Oximetry 98 97 97 Oxygen Delivery Method 12/26/18 21:05 12/26/18 21:06 12/26/18 21:10 Temperature Temperature Source Sepsis Recent Fever Within 48 Hours Sepsis New/Unexplained Change in Mental Status Sepsis Action Taken by Nursing Oxygen Flow Rate - Titration Pulse Oximetry Post Tiitration Pulse Rate 83 91 H 88 Pulse Rate [Left Finger] 84 Pulse Rate from SpO2 Sensor 87 83 Pulse Rhythm [Left Finger] Regular Pulse Strength [Left Finger] Normal Respiratory Rate 19 18 16 Respiratory Effort / Characteristics Non-Labored Spontaneous Respiratory Depth Normal Respiratory Pattern Regular Blood Pressure 151/91 H Blood Pressure [Left Arm] 151/91 H Blood Pressure Mean 111 Blood Pressure Mean [Left Arm] 111 Blood Pressure Position Blood Pressure Position [Left Arm] Lying Pulse Oximetry 96 97 Oxygen Delivery Method Room Air 12/26/18 21:20 12/26/18 21:29 12/26/18 21:30 Temperature Temperature Source Sepsis Recent Fever Within 48 Hours Sepsis New/Unexplained Change in Mental Status Sepsis Action Taken by Nursing Oxygen Flow Rate - Titration 2 Pulse Oximetry Post Tiitration 100 Pulse Rate 93 H 87 Pulse Rate [Left Finger] Pulse Rate from SpO2 Sensor Pulse Rhythm [Left Finger] Pulse Strength [Left Finger] Respiratory Rate 21 18 Respiratory Effort / Characteristics Respiratory Depth Respiratory Pattern Blood Pressure Blood Pressure [Left Arm] Blood Pressure Mean Blood Pressure Mean [Left Arm] Blood Pressure Position Blood Pressure Position [Left Arm] Pulse Oximetry 98 Oxygen Delivery Method Room Air 12/26/18 21:40 12/26/18 21:41 12/26/18 21:45 Temperature Temperature Source Sepsis Recent Fever Within 48 Hours Sepsis New/Unexplained Change in Mental Status Sepsis Action Taken by Nursing Oxygen Flow Rate - Titration Pulse Oximetry Post Tiitration Pulse Rate 81 79 80 Pulse Rate [Left Finger] Pulse Rate from SpO2 Sensor 79 80 Pulse Rhythm [Left Finger] Pulse Strength [Left Finger] Respiratory Rate 17 22 19 Respiratory Effort / Characteristics Respiratory Depth Respiratory Pattern Blood Pressure 154/83 H 163/85 H Blood Pressure [Left Arm] Blood Pressure Mean 106 111 Blood Pressure Mean [Left Arm] Blood Pressure Position Blood Pressure Position [Left Arm] Pulse Oximetry 100 100 Oxygen Delivery Method GENERAL: She is alert and oriented x2. She appears cachectic. She does not appear distressed. HENT: Exam performed. -Head: Normocephalic and atraumatic. -Right Ear: External ear normal. No mastoid tenderness. -Left Ear: External ear normal. No mastoid tenderness. -Mouth/Throat: The oropharynx is clear and moist. No trismus in the jaw. No dental abscesses or uvula swelling. No oropharyngeal exudate or tonsillar abscesses. EYES: Conjunctivae and EOM are normal. Pupils are equal, round, and reactive to light. Right eye exhibits no discharge. Left eye exhibits no discharge. No scleral icterus. NECK: Normal range of motion. Neck supple. No JVD present. No spinous process tenderness present. No carotid bruit present. No rigidity. No tracheal deviation and normal range of motion present. No Brudzinski's sign and no Kernig's sign noted. CV: Normal rate, regular rhythm, normal heart sounds and intact distal pulses. There is no peripheral edema. Palpable radial pulses bue. PULM/CHEST: Effort normal and breath sounds normal. No respiratory distress. No stridor. She has no wheezes. She has no rales. Chest Wall: She exhibits no tenderness. ABD: The abdomen is soft. Bowel sounds are normal. She has no distension. No mass is present. There is no tenderness. There is no rebound, no guarding, no Galaviz's sign and no tenderness at McBurney's point. Rovsig negative MUSC/SKEL: Normal range of motion. There is no peripheral edema, tenderness or deformity. LYMPH: No cervical adenopathy. NEURO: She is alert and oriented x2. Motor and sensation grossly intact. SKIN: Skin is warm and dry. She is not diaphoretic. Course 2003: Past medical records reviewed. The patient was evaluated in room B7 during a period of extremely high acuity and extremely high volume in the emergency department. 2116: Vital signs stable. Patient's troponin is elevated at 7.69. EKG showed ST elevation in leads II, III, aVF with ST depressions in leads aVL, V2 and V1. PVCs were present. Heart alert called. 2123: I spoke with the patient's son on the phone at [phone] and he confirmed that the patient has dementia. Patient does have a living will and DNR. After long discussion with the son and given the acuity of the findings and patient's symptoms, he and I believe that the patient would benefit from stent placement. Given the patient's son's verbal OK, patient will proceed with cardiac catheterization. 2135: Spoke with the patient's daughter on the telephone who states she was in [place]. She also gave a verbal consent for the patient to undergo cardiac catheterization with possible stent placement. She states that the DNR was only implied if the patient had no chance of recovery. Both the daughter, son, and I agree that the patient should undergo cardiac catheterization. 2149: Dr. Tate [facility] Card[facility], is here at bedside to evaluate the patient. 3: Bebeto Abernathy- Cardiology will take the patient to the calibration laboratory technician. Administered Medications Ioversol (Optiray 320 100ml) 92 ml IV ONCE PRN PRN Reason: Interaction Checking Stop: 12/30/18 20:54 Last Admin: 12/26/18 20:56 Dose: 92 ml Documented by: [id number] Discontinued Medications Aspirin (Aspirin) 324 mg PO NOW STA Stop: 12/26/18 21:29 Last Admin: 12/26/18 21:31 Dose: 324 mg Documented by: [id number] Atropine Sulfate (Atropine Sulfate) Confirm Administered Dose 1 mg IV .STK-MED ONE Stop: 12/26/18 22:11 Last Admin: 12/26/18 22:44 Dose: Not Given Documented by: [id number] Clopidogrel Bisulfate (Plavix) Confirm Administered Dose 600 mg .ROUTE .STK-MED ONE Stop: 12/26/18 22:36 Last Admin: 12/26/18 22:44 Dose: 600 mg Documented by: [id number] Fentanyl Citrate (Fentanyl Citrate) Confirm Administered Dose 100 mcg .ROUTE .STK-MED ONE Stop: 12/26/18 21:39 Last Increment: 12/26/18 22:43 Dose: 25 mcg Documented by: [id number] Heparin Sodium (Porcine) (Heparin Iv Bolus ([employer] Use Only)) Confirm Administered Dose 10,000 units .ROUTE .STK-MED ONE Stop: 12/26/18 21:39 Last Admin: 12/26/18 22:43 Dose: 8,000 units Documented by: [id number] Heparin Sodium/Sodium Chloride (Heparin/Nss 1000 Unit/500ml Flush Bag) Confirm Administered Dose 3,000 units IV .STK-MED ONE Stop: 12/26/18 21:40 Last Admin: 12/26/18 22:43 Dose: 3,000 units Documented by: [id number] Sodium Chloride (Nss) 500 mls @ 125 mls/hr IV .Q4H PINO Stop: 12/26/18 22:46 Last Infusion: 12/26/18 21:28 Dose: 0 mls/hr Documented by: [id number] Admin: 12/26/18 20:41 Dose: 125 mls/hr Documented by: [id number] Midazolam HCl (Versed) Confirm Administered Dose 2 mg .ROUTE .STK-MED ONE Stop: 12/26/18 21:39 Last Admin: 12/26/18 22:43 Dose: Not Given Documented by: [id number] Morphine Sulfate (Morphine Sulfate) 1 mg IV NOW STA Stop: 12/26/18 21:31 Last Admin: 12/26/18 21:45 Dose: 1 mg Documented by: [id number] Morphine Sulfate (Morphine Sulfate) 1 mg IV NOW STA Stop: 12/26/18 21:34 Last Admin: 12/26/18 21:36 Dose: 1 mg Documented by: [id number] Nicardipine HCl (Cardene) Confirm Administered Dose 25 mg .ROUTE .STK-MED ONE Stop: 12/26/18 21:39 Last Admin: 12/26/18 22:42 Dose: 25 mg Documented by: [id number] Nitroglycerin/Dextrose (Nitroglycerin/D5w 100 Mcg/Ml 20ml Syringe) Confirm Administered Dose 2,000 mcg .ROUTE .STK-MED ONE Stop: 12/26/18 21:40 Last Admin: 12/26/18 22:42 Dose: 2,000 mcg Documented by: [id number] Ondansetron HCl (Zofran) 4 mg IV NOW STA Stop: 12/26/18 21:34 Last Admin: 12/26/18 21:36 Dose: 4 mg Documented by: [id number] Medical Decision Making Medical Records Attestation: I reviewed the patient's medical records. Home Medications Current Medication List: was personally reviewed by me Laboratory Data Attestation: I reviewed the patient's lab results. Result diagrams: 12/26/18 20:20 12/26/18 20:20 Lab Results 12/26/18 12/26/18 12/26/18 Range/Units 20:20 20:20 20:20 WBC 12.13 H (4.8-10.8) K/uL RBC 4.19 L (4.2-5.4) M/uL Hgb 12.7 (12.0-16.0) g/dL Hct 37.1 (37-47) % MCV 88.5 (80-100) fL MCH 30.3 (25-34) pg MCHC 34.2 (32-36) g/dL RDW Std Deviation 42.9 (36.4-46.3) fL RDW Coeff of Stephanie 13.2 (11.5-14.5) % Plt Count 328 (130-400) K/uL MPV 11.6 H (7.4-10.4) fL Immature Gran % (Auto) 0.1 % Neut % (Auto) 92.2 % Lymph % (Auto) 3.9 % Hickman % (Auto) 3.5 % Eos % (Auto) 0.1 % Baso % (Auto) 0.2 % Immature Gran # (Auto) 0.01 (0.00-0.02) K/uL Neut # (Auto) 11.19 H (1.4-6.5) K/uL Lymph # (Auto) 0.47 L (1.2-3.4) K/uL Hickman # (Auto) 0.43 (0.11-0.59) K/uL Eos # (Auto) 0.01 (0-0.5) K/uL Baso # (Auto) 0.02 (0-0.2) K/uL PT 10.1 (9.0-12.0) Seconds INR 1.0 (0.9-1.1) APTT 24.9 (21.0-31.0) Seconds PTT Ratio 0.9 Sodium 136 (136-145) mmol/L Potassium 4.3 (3.5-5.1) mmol/L Chloride 101 (98-107) mmol/L Carbon Dioxide 29 (21-32) mmol/L Anion Gap 6.0 (3-11) BUN 16 (7-18) mg/dl Creatinine 0.53 L (0.6-1.2) mg/dl Est Cr Clr Drug Dosing 50.2 ml/min Est GFR ( Amer) 98.9 Est GFR (Non-Af Amer) 85.4 BUN/Creatinine Ratio 31.1 H (10-20) Glucose 147 H (70-99) mg/dl Calcium 9.6 (8.5-10.1) mg/dl Total Bilirubin 0.4 (0.2-1) mg/dl Direct Bilirubin 0.2 (0-0.2) mg/dl AST 133 H (15-37) U/L ALT 38 (12-78) U/L Alkaline Phosphatase 80 (45-117) U/L Troponin I 7.690 H* (0-0.045) ng/ml Total Protein 6.9 (6.4-8.2) gm/dl Albumin 3.7 (3.4-5.0) gm/dl Lipase 78 (73-393) U/L Urine Color Urine Appearance (Clear) Urine pH (4.5-7.5) Ur Specific [place] (1.000-1.030) Urine Protein (Negative) Urine Glucose (UA) (Negative) Urine Ketones (Negative) Urine Blood (Negative) Urine Nitrite (Negative) Urine Bilirubin (Negative) Urine Urobilinogen (Negative) Ur Leukocyte Esterase (Negative) Urine WBC (Auto) (0-5) /hpf Urine RBC (Auto) (0-4) /hpf U Hyaline Cast (Auto) (0-5) /lpf U Epithel Cells (Auto) (0-5) /lpf Urine Bacteria (Auto) (Negative) 12/26/18 Range/Units 21:28 WBC (4.8-10.8) K/uL RBC (4.2-5.4) M/uL Hgb (12.0-16.0) g/dL Hct (37-47) % MCV (80-100) fL MCH (25-34) pg MCHC (32-36) g/dL RDW Std Deviation (36.4-46.3) fL RDW Coeff of Stephanie (11.5-14.5) % Plt Count (130-400) K/uL MPV (7.4-10.4) fL Immature Gran % (Auto) % Neut % (Auto) % Lymph % (Auto) % Hickman % (Auto) % Eos % (Auto) % Baso % (Auto) % Immature Gran # (Auto) (0.00-0.02) K/uL Neut # (Auto) (1.4-6.5) K/uL Lymph # (Auto) (1.2-3.4) K/uL Hickman # (Auto) (0.11-0.59) K/uL Eos # (Auto) (0-0.5) K/uL Baso # (Auto) (0-0.2) K/uL PT (9.0-12.0) Seconds INR (0.9-1.1) APTT (21.0-31.0) Seconds PTT Ratio Sodium (136-145) mmol/L Potassium (3.5-5.1) mmol/L Chloride (98-107) mmol/L Carbon Dioxide (21-32) mmol/L Anion Gap (3-11) BUN (7-18) mg/dl Creatinine (0.6-1.2) mg/dl Est Cr Clr Drug Dosing ml/min Est GFR ( Amer) Est GFR (Non-Af Amer) BUN/Creatinine Ratio (10-20) Glucose (70-99) mg/dl Calcium (8.5-10.1) mg/dl Total Bilirubin (0.2-1) mg/dl Direct Bilirubin (0-0.2) mg/dl AST (15-37) U/L ALT (12-78) U/L Alkaline Phosphatase (45-117) U/L Troponin I (0-0.045) ng/ml Total Protein (6.4-8.2) gm/dl Albumin (3.4-5.0) gm/dl Lipase (73-393) U/L Urine Color Yellow Urine Appearance Cloudy A (Clear) Urine pH 8.0 H (4.5-7.5) Ur Specific [place] 1.035 H (1.000-1.030) Urine Protein Negative (Negative) Urine Glucose (UA) Negative (Negative) Urine Ketones Negative (Negative) Urine Blood Negative (Negative) Urine Nitrite Negative (Negative) Urine Bilirubin Negative (Negative) Urine Urobilinogen Negative (Negative) Ur Leukocyte Esterase Negative (Negative) Urine WBC (Auto) 1-5 (0-5) /hpf Urine RBC (Auto) 5-10 H (0-4) /hpf U Hyaline Cast (Auto) 1-5 (0-5) /lpf U Epithel Cells (Auto) 5-10 H (0-5) /lpf Urine Bacteria (Auto) Negative (Negative) Imaging Data Radiologist's Impression: Radiology results as stated below per my review and the radiologist's interpretation: SINGLE VIEW CHEST CLINICAL HISTORY: Atypical chest pain. FINDINGS: An AP, portable, upright chest radiograph is compared to study dated 10/31/2016 . The examination is degraded by portable technique and patient rotation. The heart is top normal for projection noting atherosclerotic calcific ation of the thoracic aorta. The pulmonary vasculature is noncongested. Chronic interstitial thickening is similar to previous. There is bibasilar scarring/atelectasis. No airspace consolidation or large pleural effusion is identified. No pneumothorax is seen. The skeletal structures are osteopenic. There are healed right-sided rib fractures. Postoperative change is partially visualized in the right humerus. IMPRESSION: No acute cardiopulmonary abnormality. Electronically signed by: Reagan Nesbitt M.D. 12/26/2018 9:[address] SCAN OF THE ABDOMEN AND PELVIS WITH IV CONTRAST CLINICAL HISTORY: Generalized abdominal pain. COMPARISON STUDY: No priors. TECHNIQUE: Following the IV administration of 92 cc of Optiray 320, CT scan of the abdomen and pelvis is performed from the lung bases to the proximal femora. Images are reviewed in the axial, sagittal, and coronal planes. IV contrast was administered without complication. A dose lowering technique was utilized adhering to the principles of ALARA. The examination is degraded by streak artifact from the arms which could not be elevated above the abdomen or pelvis. There is also motion artifact. CT DOSE: 353.09 mGy.cm FINDINGS: Lung bases: The heart is normal in size and without pericardial effusion. Subpleural reticulation and mild fibrotic change is noted at the lung bases. There is no airspace consolidation or pleural effusion. There are coronary artery calcifications. Liver: The contrast-enhanced liver is enlarged, measuring 20.9 cm in length. The liver is otherwise normal in contour and attenuation. There is no intrahepatic biliary ductal dilatation. The hepatic veins and portal veins are patent. Gallbladder: Unremarkable. Spleen: Normal in size and attenuation. Pancreas: Atrophic and grossly unremarkable. Adrenal glands: Unremarkable. Kidneys: The contrast enhanced kidneys are atrophic and without hydronephrosis. The kidneys enhance symmetrically. There are numerous subcentimeter there are numerous cortical hypodensities which measure up to 11 mm. These likely represent cysts but cannot be definitively characterized due to small size and streak artifact. Abdominal vasculature: There is advanced atherosclerotic calcification mild ectasia of the abdominal aorta. Bowel: There is rectosigmoid fecal retention and moderate constipation. No bowel obstruction is identified. The appendix is not identified. There is mild infiltration of the perianal soft tissues. Intracranial fluid collection is seen. Peritoneum: There is no intraperitoneal free air or abdominal ascites. Lymphadenopathy: None. Pelvic viscera: The bladder is normal as visualized. The uterus is heterogeneous and the endometrium is prominent for age, measuring up to 11 mm in thickness. No adnexal lesion is seen. Skeletal structures: The skeletal structures are heterogeneously osteopenic. Mild lumbosacral spondylosis is observed. No lytic or blastic lesions are seen. Soft tissues: The patient is cachectic. IMPRESSION: 1. Streak and motion degraded examination. The examination is also compromised by cachexia and a paucity of intraperitoneal fat. 2. There is rectosigmoid fecal retention and moderate constipation. No bowel obstruction is seen. 3. There is mild infiltration of the perianal soft tissues. No perianal fluid collection is identified. Correlation with direct visualization is recommended. 4. The uterus is heterogeneous and the endometrium appears thickened for age. This is not well assessed by CT and follow-up with a nonemergent pelvic ultrasound is recommended for further assessment. 5. Additional findings as above. Electronically signed by: Reagan Nesbitt M.D. 12/26/2018 9:44 PM ECG Data Attestation: I personally reviewed and interpreted this ECG as follows: Indication: + chest pain Rate (beats per minute): 83 Rhythm: + sinus rhythm ECG Intervals/blocks: + Normal QRS ECG ST segments: + ST depression (AVl, V1 and V2) and + ST elevation (lead 2, 3 and AVf) ECG Findings: + PVCs and + Other (CA and QTC within normal limits) Blood Pressure Blood Pressure Findings: Elevated blood pressure Blood Pressure Disposition: further management by hospitalist VERÓNICA Narrative 2004: Past medical records reviewed. The patient was evaluated in room B7 during a period of extremely high acuity and extremely high volume in the emergency department. 2116: Vital signs stable. Patient's troponin is elevated at 7.69. EKG showed ST elevation in leads II, III, aVF with ST depressions in leads aVL, V2 and V1. PVCs were present. Heart alert called. 2123: I spoke with the patient's son on the phone at [phone] and he confirmed that the patient has dementia. Patient does have a living will and DNR. After long discussion with the son and given the acuity of the findings and patient's symptoms, he and I believe that the patient would benefit from stent placement. Given the patient's son's verbal OK, patient will proceed with cardiac catheterization. 2135: Spoke with the patient's daughter on the telephone who states she was in [place]. She also gave a verbal consent for the patient to undergo cardiac catheterization with possible stent placement. She states that the DNR was only implied if the patient had no chance of recovery. Both the daughter, son, and I agree that the patient should undergo cardiac catheterization. 2149: Dr. Stallworth- [facility] Cardiology, is here at bedside to evaluate the patient. 2152: Bebeto Abernathy- Cardiology will take the patient to the calibration laboratory technician. Impression & Plan ST elevation (STEMI) myocardial infarction Critical Care Time Critical Care Time: Yes Total Critical Care Time: 35 I have personally spent 35 minutes of critical care time in the direct managem ent of this patient. This includes bedside care, interpretation of diagnostic studies, and testing, discussion with consultants, patient, and family members, and other required patient management activities. This 35 minutes is in excess of all separately billable procedures. Discharge Plan Visit Data *Final* Discharge Date/Time: 12/26/18 21:55 Chief Complaint: Abdominal Pain Stated Complaint: ABD PAIN ED Provider: Bj Sal Discharge Problem: ST elevation (STEMI) myocardial infarction Patient Disposition: Still a Patient Discharge Instructions Interventions: ED Discharge Assessment Last Done: 12/26/18 21:55 Discharge Problem: ST elevation (STEMI) myocardial infarction Qualifiers: Involved coronary artery: unspecified coronary artery Qualified Code(s): I21.3 - ST elevation (STEMI) myocardial infarction of unspecified site The scribe's documentation has been prepared under my direction and personally reviewed by me in its entirety. I confirm that the note above accurately reflects all work, treatment, procedures, and medical decision making performed by me.
--- NOTE | 2018-12-27 00:07 | Critical Care Consultation ---
Date of Consultation December 27, 2018 Assessment & Plan (1) Admitted to intensive care unit: Reason Critically Ill: 88-year-old female with acute inferior STEMI status post PTCA with GERMÁN x1 to the RCA. New onset A. fib status post intervention requiring close hemodynamic monitoring in the acute postprocedural phase. NEURO - * CAM ICU: NEGATIVE * Dementia: * Continue home Rx as written. * Pain: Acetaminophen/Morphine PRN CARDIAC/VASCULAR - * Acute Inferior STEMI s/p PTCA w/ GERMÁN x1 to the RCA: * DAPT x1 yr. * ASCVD per typical. * AM Echo. * Trend Trops to peak. * New onset A-fib w/ RVR: * s/p PTCA w/ intervention. * Treated w/ one time dose of 2.5mg IV Metoprolol. * Will add PO dose of Metoprolol @12.5mg at this point. * [id number]: 4/CHADS2: 2 --> per brief discussion w/ interventionalist, will avoid anticoagulation in the acute post-procedural phase as patient is high risk for bleeding. Will reassess necessity for anticoagulation over the next 24 hours. * EKG (on presentation): SR w/ PVCs @83bpm. Acute ST Elevation in inferior leads. QTc 474 ms. * EKG (post-PTIC): A-fib w/ RVR @[address] elevation in inferior leads. QTc 445 ms. * Monitor on telemetry. RESPIRATORY - * No h/o respiratory issues otherwise. * Saturating well on RA at this point. GI/NUTRITION - * Speech consult placed 2/2 patient's statements for needs for thickened liquids. Outside records do not provide this detail. * AHA diet. RENAL/LYTES - * No significant electrolyte derangements. * Monitor closely s/p IVC load. * IVF: NSS @100mL/hr for a total of 500mL per cards. - * No concerns at this time. ENDO - * No h/o DM * BSGs per unit protocol. ISS --> gtt per unit policy. * Hypothyroidism: * Continue home dose of Levothyroxine. HEME - * Stable H&H * Monitor closely for s/s of bleeding s/p Heparin/Plavix/ASA load. ID - * No concerns for infectious contribution at this time. LINES/IV ACCESS - * PIVs x2 * TR Band x2 to the RIGHT Wrist. DVT PROPHYLAXIS - * Will hold s/p Heparin/Plavix/ASA load. * SCDs I have personally spent 45 minutes of critical care time in the direct management of this patient. This is a life/limb threatening event. This includes time spent evaluating patient, direct bedside care, chart review, placing orders, interpretation of diagnostic studies, discussion with consultants, patient, and family members, as well as other required patient management activities. This time is exclusive of all separately billable procedures, and teaching time and separate from and in addition to any other critical care service time. Thank you for allowing us to participate in the care of this patient. Please refer to my attending physician's documentation for any further recommendations. (2) ST elevation (STEMI) myocardial infarction: (3) S/P drug eluting coronary stent placement: (4) S/P PTCA (percutaneous transluminal coronary angioplasty): (5) New onset atrial fibrillation: (6) Hyponatremia: (7) Dyslipidemia: (8) Hypothyroidism: (9) Osteoporosis: (10) Hypertension: Supervising Physician Co-Signing Physician Notes I agree with assessment and plan of Kaye Neves PA-C. History of Present Illness Attending Physician: Kirk Hurd MD History of Present Illness Patient is an 88-year-old female with a significant past medical history of hypertension, hyperlipidemia, hypothyroidism, hyponatremia, osteoporosis, and dementia who presented to the emergency department with initial complaints of abdominal discomfort. Throughout evaluation, the patient did have increasing complaints of chest pain. Patient underwent EKG assessment which was concerning for acute ST segment elevation myocardial infarction in the inferior leads. Troponin was also elevated. Patient was taken to the cardiac catheterization suite where she underwent successful PTCI with GERMÁN x1 to the RCA. Patient received aspirin, morphine, Zofran, Plavix, and heparin intra-procedurally. Upon arrival in the ICU, the patient is awake and alert. She is aware that she is in the hospital. She denies any pain at this time, specifically denies any chest pain. She denies any headaches, dizziness, chest pain, nausea, vomiting, or abdominal pain. Allergies Allergy/AdvReac Type Severity Reaction Status Date / Time adhesive Allergy Mild RASH Verified 12/26/18 20:18 latex Allergy Mild RASH Verified 12/26/18 20:18 diclofenac Allergy Unknown Verified 12/26/18 20:22 fenofibrate Allergy Unknown Verified 12/26/18 20:22 lisinopril Allergy Unknown Verified 12/26/18 20:22 Penicillins Allergy Unknown Verified 12/26/18 20:22 rosuvastatin [From Crestor] Allergy Unknown Verified 12/26/18 20:22 sulfamethoxazole Allergy Unknown Verified 12/26/18 20:22 [From Bactrim] trimethoprim [From Bactrim] Allergy Unknown Verified 12/26/18 20:22 Home Medications Home Medications Medication Instructions Recorded Confirmed Type acetaminophen [Tylenol] 650 mg PO QID PRN 12/26/18 12/26/18 History amlodipine [Norvasc] 5 mg PO DAILY 12/26/18 12/26/18 History calcium carbonate-vitamin D3 2 tab PO DAILY 12/26/18 12/26/18 History [Oysco 500/D] cyclosporine [Restasis] 1 drp OPB TID PRN 12/26/18 12/26/18 History dextran 70-hypromellose (PF) 1 drp OPB BID PRN 12/26/18 12/26/18 History [Artificial Tears (PF)] diphenhydramine HCl [Banophen] 25 mg PO Q8H PRN 12/26/18 12/26/18 History food supplemt, lactose-reduced 1 ea PO TIDM 12/26/18 12/26/18 History [Boost] levothyroxine 50 mcg PO DAILY 12/26/18 12/26/18 History meclizine 25 mg PO TID PRN 12/26/18 12/26/18 History menthol-zinc oxide [Calmoseptine] 1 applic TOPICAL DAILY PRN 12/26/18 12/26/18 History multivitamin 1 tab PO DAILY 12/26/18 12/26/18 History senna 8.6 mg PO Q OTHER DAY PRN 12/26/18 12/26/18 History Patient History Medical History Hypertension (Chronic) Fracture of humeral head 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" Osteoporosis (Chronic) Hypothyroidism (Chronic) Chest pain Dyslipidemia (Chronic) Hyponatremia Proximal humerus fracture History of post-polio syndrome (Chronic) Dementia Surgical History S/P lumpectomy of breast (Chronic) S/P tubal ligation (Chronic) History of cataract surgery (Chronic) S/P tonsillectomy and adenoidectomy (Chronic) H/O hemorrhoidectomy (Chronic) S/P dilatation of esophageal stricture (Chronic) Family History Other Family history non-contributory Social History Preferred Language: Estonian Communication Ability: Effective Wreath Inspector Required: No Beliefs That Will Affect Care: None Current Living Situation: Personal Care Facility Current Living Situation Comment: [facility] Other Information That Helps Us Care for You: No Feels Safe at Home: Yes Safety Concerns: Feels Safe At This Time Smoking Status: Never smoker Do You Dip or Chew Tobacco: No ; Second Hand Exposure: No ; Tobacco Cessation Education Requested by Patient: No Hx Alcohol Use: No Hx Substance Use: No Review of Systems Review of Systems: A complete 10 point review of systems was reviewed with the patient with pertinent positives and negatives as per history of present illness. All else were negative. Physical Exam Physical Exam: VITAL SIGNS - Vital signs and nursing notes were reviewed. GENERAL - 88-year-old female appearing her stated age who is in no acute dist ress. SKIN - Without rashes. HEAD - NC/AT. EYES - PERRL with EOMI bilaterally. Sclera anicteric. EARS - No deformities of external structures noted on gross examination bilaterally. NOSE - Midline and without cyanosis. No epistaxis or purulent drainage noted. MOUTH/OROPHARYNX - Without perioral cyanosis. Buccal mucosa pink and moist and without leukoplakia. NECK - Neck with FROM. Supple to palpation. No nuchal rigidity. LUNGS - Chest wall symmetric without accessory muscle use, intercostals retractions, or central cyanosis. Normal vesicular breath sounds CTA B/L. No wheezes, rales, or rhonchi appreciated. CARDIAC - RRR with S1/S2. No murmur, rubs, or gallops appreciated. ABDOMEN - Abdominal contour scaphoid without pulsations or visible masses. BS normoactive all four quadrants. No tenderness, palpable masses, hepatosplenomegaly, or ascites noted. EXTREMITIES - No clubbing or peripheral cyanosis. No pretibial edema present. +3/5 radial and dorsalis pedis pulses palpated throughout. +5/5 strength noted in UE/LE bilaterally. NEUROLOGIC - Cranial nerves II through XII grossly intact. PSYCH - A&O to person and location. Results & Data Vital Signs (Past 12 Hours) Vital Signs Temp Pulse Pulse Pulse Resp BP BP 12/26/18 23:57 112 H 119/74 12/26/18 23:23 36.4 C L 112 H 14 117/91 12/26/18 21:45 80 19 163/85 H 12/26/18 21:41 79 22 12/26/18 21:40 81 17 154/83 H 12/26/18 21:30 87 18 12/26/18 21:29 12/26/18 21:20 93 H 21 12/26/18 21:10 88 16 12/26/18 21:06 91 H 84 18 151/91 H 151/91 H 12/26/18 21:05 83 19 12/26/18 20:50 12/26/18 20:40 74 17 12/26/18 20:35 73 18 128/69 12/26/18 20:30 73 17 12/26/18 20:20 75 18 12/26/18 20:10 80 16 12/26/18 20:00 91 H 19 12/26/18 19:50 82 21 12/26/18 19:40 82 17 12/26/18 19:37 85 20 12/26/18 19:36 37.0 C 83 20 152/79 H 12/26/18 19:33 82 19 152/79 H Pulse Ox 12/26/18 23:57 12/26/18 23:23 95 12/26/18 21:45 100 12/26/18 21:41 100 12/26/18 21:40 12/26/18 21:30 12/26/18 21:29 98 12/26/18 21:20 12/26/18 21:10 97 12/26/18 21:06 96 12/26/18 21:05 12/26/18 20:50 97 12/26/18 20:40 97 12/26/18 20:35 98 12/26/18 20:30 97 12/26/18 20:20 98 12/26/18 20:10 98 12/26/18 20:00 97 12/26/18 19:50 97 12/26/18 19:40 97 12/26/18 19:37 97 12/26/18 19:36 98 12/26/18 19:33 98 Coding Level of Care Code Critical Care 1st 30-74 mins Diagnoses Admitted to intensive care unit Z78.9 ST elevation (STEMI) myocardial infarction I21.3 Involved coronary artery: unspecified coronary artery S/P drug eluting coronary stent placement Z95.5 S/P PTCA (percutaneous transluminal coronary angioplasty) Z98.61 New onset atrial fibrillation I48.91 Hyponatremia E87.1 Dyslipidemia E78.5 Hypothyroidism E03.9 Osteoporosis M81.0 Hypertension I10 Time Spent (min) 45 (1) ST elevation (STEMI) myocardial infarction Involved coronary artery: unspecified coronary artery Qualified Code(s): I21.3 - ST elevation (STEMI) myocardial infarction of unspecified site
[2018-12-27] MEDS ORDERED: METOPROLOL TARTRATE 25 MG TAB PO ONE (00:09)
--- NOTE | 2018-12-27 04:19 | History and Physical Report ---
DATE OF ADMISSION: 12/27/2018 CHIEF COMPLAINT: Acute ST elevated myocardial infarction. HISTORY OF PRESENT ILLNESS: This 88-year-old female with past medical history significant for hypertension, hyperlipidemia, hypothyroidism, history of hyponatremia, osteoporosis and dementia, who is an [facility] resident, was brought into the hospital with symptoms of abdominal pain and in the ER she complained of chest pain and EKG was done which showed ST elevation ID in inferior leads. ER physician talked to the son and daughter. Daughter lives in [place], Son lives locally but currently out of town. Heart alert was called and Er discussed with son and daughter and they are ok for cardiac cath.Currently s/p heart catheterization. Found to have 100% occlusion of the proximal RCA, a single stent was placed and she did okay and hemodynamically stable and brought for monitoring in the ICU. Currently, the patient seems to be confused and could not get much history from her. I called [facility] night staff, they does not seem to know much about this patient. As per them the patient has mild dementia and mostly independent, ambulates okay without any support and she was brought in because of chest discomfort. ALLERGIES: ADHESIVES, LATEX, DICLOFENAC, FENOFIBRATE, LISINOPRIL, PENICILLIN, SIMVASTATIN, BACTRIM. PAST MEDICAL HISTORY: As mentioned above. PAST SURGICAL HISTORY: Tonsillectomy, adenoidectomy, history of hemorrhoidectomy, dilatation of esophageal stricture status post lumpectomy of breast. MEDICATIONS: Tylenol 650 mg p.o. q.i.d. p.r.n., amlodipine 5 mg p.o. daily, calcium plus vitamin D 2 tablets daily, Restasis 1 drop ophthalmic t.i.d. p.r.n., artificial tears 1 drop ophthalmic b.i.d. p.r.n., diphenhydramine 25 mg p.o. q. 8 hours p.r.n., food supplement Boost t.i.d., levothyroxine 50 mcg daily, meclizine 25 mg p.o. t.i.d. p.r.n., Calmoseptine apply topically daily p.r.n., multivitamins 1 tablet daily, senna 8.6 mg p.o. every other day p.r.n. FAMILY HISTORY: Significant for father had neurological disorder. Mother had eye problems. SOCIAL HISTORY: , currently an [facility] resident. As per records, no smoking, no alcohol. REVIEW OF SYMPTOMS: Currently unobtainable as the patient seems confused. PHYSICAL EXAMINATION: GENERAL: The patient is alert and awake, oriented to name only. VITAL SIGNS: Temperature 36.4, pulse 96, respirations 15, blood pressure 98/64, oxygen 95% room air. HEENT: No pallor, no icterus. NECK: No JVD, no neck masses, no carotid bruits. CARDIOVASCULAR: S1, S2 heard, regular rate and rhythm, no murmur, no gallop. RESPIRATORY SYSTEM: Normal AP diameter. No accessory muscle use. No wheezing, no crackles. ABDOMEN: Soft, bowel sounds present, nontender. No distention. CENTRAL NERVOUS SYSTEM: Alert and awake and oriented x1. Moves extremities. Obeys simple commands. EXTREMITIES: No edema, no erythema. Right radial cardiac cath site, no drainage seen. LABORATORIES DATA: WBC 12.1, hemoglobin 12.7, hematocrit 37.1, platelets 328. PT 10.1, INR 1, APTT 24.9. Sodium 136, potassium 4.3, chloride 101, bicarbonate 29, BUN 16, creatinine 0.5, serum glucose 147, calcium 9.6, total bilirubin 0.4, direct bilirubin 0.2, AST 133, ALT 38, alkaline phosphatase is 80, troponin I of 0.6, lipase 78. Urinalysis negative. IMAGING: Chest x-ray: No acute cardiopulmonary findings. CT of the abdomen and pelvis, rectosigmoid fecal retention, moderate constipation, no bowel obstruction seen. Mild infiltration of the perianal soft tissue, no perianal fluid collection correlation with direct visualization is recommended. uterus thickening infiltration as well as CT and followup nonemergent pelvic ultrasound is recommended for further assessment. EKG shows sinus rhythm with PVCs, rate of 83, acute ST elevation ID in inferior leads. ASSESSMENT AND PLAN: An 88-year-old female of [facility] brought in for abdominal pain, in ER complained of chest pain. EKG showed ST elevated ID in the inferior leads. Heart alert was called. 1. Acute ST elevated myocardial infarction in inferior leads, status post cardiac catheterization which showed 100% proximal occlusion, status post single drug-eluting stent. The patient also has 70-80% mid LAD lesion and angulated left main with 40% proximal stenosis, loaded with Plavix, dual antiplatelet therapy for 1 year, beta antonio, and high-dose statin as per cardiology. Close monitor in the ICU. Serial CE and echo. 2. Hypothyroidism. Continue Synthroid. 3. Hypertension, on amlodipine, started on metoprolol. We will monitor the blood pressure. 4. Constipation and also mild infiltration of the perianal soft tissues. To consult GI when patient is more stable. Miralax. 5. thickening of endometrium on the CAT scan, nonemergent pelvic ultrasound when patient is more stable.Or followup as out patient. 6. DVT px scds. DISPOSITION: Closely monitor in the ICU. Level 1 full code. MTDD
[2018-12-27 04:24] LABS: Basophils # (auto) 0.01 K/uL (0-0.2); Basophils % (auto) 0.1 %; Hematocrit (blood only) 33.3 % (37-47); Hemoglobin 11.1 g/dL (12.0-16.0); Immature Granulocytes # (auto) 0.03 K/uL (0.00-0.02); Immature Granulocytes % (auto) 0.3 %; Lymphocytes % (auto) 8.9 %; Mean Corpuscular Hemoglobin 29.8 pg (25-34); Mean Corpuscular Hgb Conc 33.3 g/dL (32-36); Mean Corpuscular Volume 89.5 fL (80-100); Mean Platelet Volume 11.5 fL (7.4-10.4); Monocytes # (auto) 1.21 K/uL (0.11-0.59); Monocytes % (auto) 10.8 %; Neutrophils # (auto) 8.96 K/uL (1.4-6.5); Neutrophils % (auto) 79.9 %; Platelet Count 302 K/uL (130-400); RDW Coefficient of Variation 13.4 % (11.5-14.5); RDW Standard Deviation 43.6 fL (36.4-46.3); Red Blood Count 3.72 M/uL (4.2-5.4); White Blood Count 11.21 K/uL (4.8-10.8)
[2018-12-27] MEDS ORDERED: METOPROLOL TARTRATE 1 MG/ML VIAL IV STA (04:30)
[2018-12-27 04:40] LABS: BUN Creatinine Ratio 39.4 (10-20); Calcium 8.8 mg/dl (8.5-10.1); Creatinine Clr Calc Pharmacy 68.3 ml/min; Est GFR (African American) 111.4; Est GFR (Non-African American) 96.1; Potassium 4.6 mmol/L (3.5-5.1)
[2018-12-27 04:59] LABS: Phosphorus 4.2 mg/dl (2.5-4.9)
[2018-12-27] MEDS: LEVOTHYROXINE SODIUM 50 MCG TABLET PO SCH (06:00)
--- NOTE | 2018-12-27 06:36 | Critical Care Progress Note ---
Date of Service December 27, 2018 Assessment & Plan (1) Admitted to intensive care unit: Reason Critically Ill: 88-year-old female with acute inferior STEMI status post PTCA with GERMÁN x1 to the RCA. New onset A. fib status post intervention requiring close hemodynamic monitoring in the acute postprocedural phase. NEURO - * CAM ICU: NEGATIVE * Dementia: * Continue home Rx as written. * Pain: Acetaminophen/Morphine PRN CARDIAC/VASCULAR - * Acute Inferior STEMI s/p PTCA w/ GERMÁN x1 to the RCA: * DAPT x1 yr. * ASCVD per typical. * AM Echo - pending. * Trend Trops to peak. * New onset A-fib w/ RVR: * s/p PTCA w/ intervention. * Treated w/ one time dose of 2.5mg IV Metoprolol overnight. * C/w PO dose of Metoprolol @25 mg BID. * [id number]: 4/CHADS2: 2 --> per overnight team's discussion w/ interventionalist, will avoid anticoagulation in the acute post-procedural phase as patient is high risk for bleeding. Will reassess necessity for anticoagulation over the next 24 hours. * EKG (on presentation): SR w/ PVCs @83bpm. Acute ST Elevation in inferior leads. QTc 474 ms. * EKG (post-PTIC): A-fib w/ RVR @[address] elevation in inferior leads. QTc 445 ms. * Monitor on telemetry. RESPIRATORY - * No h/o respiratory issues otherwise. * Saturating well on RA at this point. GI/NUTRITION - * Speech consult placed 2/2 patient's statements for needs for thickened liquids. Outside records do not provide this detail. * AHA diet. RENAL/LYTES - * No significant electrolyte derangements. * Monitor closely s/p IVC load. * IVF: NSS @100mL/hr for a total of 500mL per cards, noted from overnight team. - * No concerns at this time. ENDO - * No h/o DM * BSGs per unit protocol. ISS --> gtt per unit policy. * Hypothyroidism: * Continue home dose of Levothyroxine. HEME - * Stable H&H * Monitor closely for s/s of bleeding s/p Heparin/Plavix/ASA load. ID - * No concerns for infectious contribution at this time. LINES/IV ACCESS - * PIVs x2 * TR Band x2 to the RIGHT Wrist. DVT PROPHYLAXIS - * Will hold s/p Heparin/Plavix/ASA load. * SCDs (2) ST elevation (STEMI) myocardial infarction: Troponin and EKG consistent with ACS and suggestive of inferior KS. Patient is DNR/DNI. Dr. Sal in the emergency department discussed cardiac catheterization with patient's son and daughter who voiced to him their wish for patient to undergo any procedures.necessary including possible cardiac catheterization. Patient at time of interview continues to localize pain to her chest and voiced agreement with proceeding with cardiac catheterization as well. We will plan on diagnostic angiography via right radial artery. If multivessel disease or disease appearing more chronic in nature we will plan to medically manage. Further recommendations pending findings of coronary angiography. (3) S/P drug eluting coronary stent placement: (4) S/P PTCA (percutaneous transluminal coronary angioplasty): (5) New onset atrial fibrillation: (6) Hyponatremia: (7) Dyslipidemia: (8) Hypothyroidism: (9) Osteoporosis: (10) Hypertension: Supervising Physician Co-Signing Physician Notes Dr. Johnson was resident physician during care of patient. I separately evaluated patient for hylton portions of the history and the exam. I was present during the critical portion of medical decision making, and I discussed the case with the resident. I generally agree with the findings and plan. Patient was discussed in multidisciplinary rounds. Most notably the patient has severe chronic malnutrition as she has significant muscle wasting at the temples, clavicles, interosseous spaces as well as loss of subcutaneous fat in the orbits, triceps and obviously in the ribs. Subjective History limited by: Dementia but answers questions appropriately. Michelle was resting with comfort this morning. She expressed no acute pain or discomfort, no chest pain, shortness of breath, nausea, vomiting. Review of Systems Review of Systems: All systems reviewed & are unremarkable except as noted in HPI & below Physical Exam Constitutional: + thin, + cachectic, + frail appearing, cooperative and comfortable Eyes: + anicteric sclerae Neck: normal visual inspection and trachea midline Respiratory: no respiratory distress and does not use accessory muscles Auscultation: lungs clear to auscultation bilaterally and + diminished lung sounds; no wheezes Cardiovascular: Rate/Rhythm: regular rate and + irregularly irregular Gastrointestinal (Abdomen): Percussion/Palpation: abdomen soft; abdomen nontender Musculoskeletal: Head/Neck/Chest: normocephalic and head atraumatic Skin: no rashes, warm and dry Neurologic: moves all extremities and awake Psychiatric: Orientation: alert and cooperative; + not oriented to place Results & Data Vital Signs (Past 12 Hours) Vital Signs Temp Pulse Pulse Pulse Resp BP BP 12/27/18 06:00 96 H 16 88/65 L 12/27/18 05:20 94 H 22 84/56 L 12/27/18 04:50 101 H 113/61 12/27/18 04:20 36.4 C L 105 H 15 113/61 12/27/18 03:20 94 H 16 98/58 L 12/27/18 02:20 97 H 18 93/58 L 12/27/18 00:50 96 H 15 98/64 L 12/27/18 00:20 90 14 103/73 12/27/18 00:16 90 12/27/18 00:05 112 H 13 130/68 12/26/18 23:57 112 H 119/74 12/26/18 23:50 111 H 18 119/74 12/26/18 23:35 115 H 25 H 119/76 12/26/18 23:23 36.4 C L 112 H 14 117/91 12/26/18 21:45 80 19 163/85 H 12/26/18 21:41 79 22 12/26/18 21:40 81 17 154/83 H 12/26/18 21:30 87 18 12/26/18 21:29 12/26/18 21:20 93 H 21 12/26/18 21:10 88 16 12/26/18 21:06 91 H 84 18 151/91 H 151/91 H 12/26/18 21:05 83 19 12/26/18 20:50 12/26/18 20:40 74 17 12/26/18 20:35 73 18 128/69 12/26/18 20:30 73 17 12/26/18 20:20 75 18 12/26/18 20:10 80 16 12/26/18 20:00 91 H 19 12/26/18 19:50 82 21 12/26/18 19:40 82 17 12/26/18 19:37 85 20 12/26/18 19:36 37.0 C 83 20 152/79 H 12/26/18 19:33 82 19 152/79 H Pulse Ox 12/27/18 06:00 96 12/27/18 05:20 95 12/27/18 04:50 12/27/18 04:20 97 12/27/18 03:20 94 12/27/18 02:20 95 12/27/18 00:50 95 12/27/18 00:20 95 12/27/18 00:16 12/27/18 00:05 96 12/26/18 23:57 12/26/18 23:50 93 12/26/18 23:35 98 12/26/18 23:23 95 12/26/18 21:45 100 12/26/18 21:41 100 12/26/18 21:40 12/26/18 21:30 12/26/18 21:29 98 12/26/18 21:20 12/26/18 21:10 97 12/26/18 21:06 96 12/26/18 21:05 12/26/18 20:50 97 12/26/18 20:40 97 12/26/18 20:35 98 12/26/18 20:30 97 12/26/18 20:20 98 12/26/18 20:10 98 12/26/18 20:00 97 12/26/18 19:50 97 12/26/18 19:40 97 12/26/18 19:37 97 12/26/18 19:36 98 12/26/18 19:33 98 Laboratory Results Laboratory Results - last 24 hr 12/26/18 12/26/18 12/26/18 20:20 20:20 20:20 WBC 12.13 H RBC 4.19 L Hgb 12.7 Hct 37.1 MCV 88.5 MCH 30.3 MCHC 34.2 RDW Std Deviation 42.9 RDW Coeff of Stephanie 13.2 Plt Count 328 MPV 11.6 H Immature Gran % (Auto) 0.1 Neut % (Auto) 92.2 Lymph % (Auto) 3.9 Swain % (Auto) 3.5 Eos % (Auto) 0.1 Baso % (Auto) 0.2 Immature Gran # (Auto) 0.01 Neut # (Auto) 11.19 H Lymph # (Auto) 0.47 L Swain # (Auto) 0.43 Eos # (Auto) 0.01 Baso # (Auto) 0.02 PT 10.1 INR 1.0 APTT 24.9 PTT Ratio 0.9 Sodium 136 Potassium 4.3 Chloride 101 Carbon Dioxide 29 Anion Gap 6.0 BUN 16 Creatinine 0.53 L Est Cr Clr Drug Dosing 50.2 Est GFR ( Amer) 98.9 Est GFR (Non-Af Amer) 85.4 BUN/Creatinine Ratio 31.1 H Glucose 147 H POC Glucose Estimat Average Glucose Hemoglobin A1c Calcium 9.6 Phosphorus Magnesium Total Bilirubin 0.4 Direct Bilirubin 0.2 AST 133 H ALT 38 Alkaline Phosphatase 80 Troponin I 7.690 H* Total Protein 6.9 Albumin 3.7 Triglycerides Cholesterol LDL Cholesterol, Calc VLDL Cholesterol, Calc HDL Cholesterol Cholesterol/HDL Ratio Lipase 78 Urine Color Urine Appearance Urine pH Ur Specific [place] Urine Protein Urine Glucose (UA) Urine Ketones Urine Blood Urine Nitrite Urine Bilirubin Urine Urobilinogen Ur Leukocyte Esterase Urine WBC (Auto) Urine RBC (Auto) U Hyaline Cast (Auto) U Epithel Cells (Auto) Urine Bacteria (Auto) Nasal Screen MRSA (PCR) 12/26/18 12/26/18 12/26/18 21:28 23:10 23:46 WBC RBC Hgb Hct MCV MCH MCHC RDW Std Deviation RDW Coeff of Stephanie Plt Count MPV Immature Gran % (Auto) Neut % (Auto) Lymph % (Auto) Swain % (Auto) Eos % (Auto) Baso % (Auto) Immature Gran # (Auto) Neut # (Auto) Lymph # (Auto) Swain # (Auto) Eos # (Auto) Baso # (Auto) PT INR APTT PTT Ratio Sodium Potassium Chloride Carbon Dioxide Anion Gap BUN Creatinine Est Cr Clr Drug Dosing Est GFR ( Amer) Est GFR (Non-Af Amer) BUN/Creatinine Ratio Glucose POC Glucose 126 H Estimat Average Glucose Hemoglobin A1c Calcium Phosphorus Magnesium Total Bilirubin Direct Bilirubin AST ALT Alkaline Phosphatase Troponin I Total Protein Albumin Triglycerides Cholesterol LDL Cholesterol, Calc VLDL Cholesterol, Calc HDL Cholesterol Cholesterol/HDL Ratio Lipase Urine Color Yellow Urine Appearance Cloudy A Urine pH 8.0 H Ur Specific [place] 1.035 H Urine Protein Negative Urine Glucose (UA) Negative Urine Ketones Negative Urine Blood Negative Urine Nitrite Negative Urine Bilirubin Negative Urine Urobilinogen Negative Ur Leukocyte Esterase Negative Urine WBC (Auto) 1-5 Urine RBC (Auto) 5-10 H U Hyaline Cast (Auto) 1-5 U Epithel Cells (Auto) 5-10 H Urine Bacteria (Auto) Negative Nasal Screen MRSA (PCR) Negative 12/27/18 12/27/18 12/27/18 04:02 04:02 04:02 WBC 11.21 H RBC 3.72 L Hgb 11.1 L Hct 33.3 L MCV 89.5 MCH 29.8 MCHC 33.3 RDW Std Deviation 43.6 RDW Coeff of Stephanie 13.4 Plt Count 302 MPV 11.5 H Immature Gran % (Auto) 0.3 Neut % (Auto) 79.9 Lymph % (Auto) 8.9 Swain % (Auto) 10.8 Eos % (Auto) 0.0 Baso % (Auto) 0.1 Immature Gran # (Auto) 0.03 H Neut # (Auto) 8.96 H Lymph # (Auto) 1.00 L Swain # (Auto) 1.21 H Eos # (Auto) 0.00 Baso # (Auto) 0.01 PT INR APTT PTT Ratio Sodium 137 Potassium 4.6 Chloride 104 Carbon Dioxide 27 Anion Gap 6.0 BUN 14 Creatinine 0.37 L Est Cr Clr Drug Dosing 68.3 Est GFR ( Amer) 111.4 Est GFR (Non-Af Amer) 96.1 BUN/Creatinine Ratio 39.4 H Glucose 115 H POC Glucose Estimat Average Glucose 111 Hemoglobin A1c 5.5 Calcium 8.8 Phosphorus 4.2 Magnesium 2.0 Total Bilirubin Direct Bilirubin AST ALT Alkaline Phosphatase Troponin I 117.000 H* Total Protein Albumin Triglycerides 59 Cholesterol 151 LDL Cholesterol, Calc 78 VLDL Cholesterol, Calc 12 HDL Cholesterol 61 Cholesterol/HDL Ratio 3 Lipase Urine Color Urine Appearance Urine pH Ur Specific [place] Urine Protein Urine Glucose (UA) Urine Ketones Urine Blood Urine Nitrite Urine Bilirubin Urine Urobilinogen Ur Leukocyte Esterase Urine WBC (Auto) Urine RBC (Auto) U Hyaline Cast (Auto) U Epithel Cells (Auto) Urine Bacteria (Auto) Nasal Screen MRSA (PCR) 12/27/18 06:04 WBC RBC Hgb Hct MCV MCH MCHC RDW Std Deviation RDW Coeff of Stephanie Plt Count MPV Immature Gran % (Auto) Neut % (Auto) Lymph % (Auto) Swain % (Auto) Eos % (Auto) Baso % (Auto) Immature Gran # (Auto) Neut # (Auto) Lymph # (Auto) Swain # (Auto) Eos # (Auto) Baso # (Auto) PT INR APTT PTT Ratio Sodium Potassium Chloride Carbon Dioxide Anion Gap BUN Creatinine Est Cr Clr Drug Dosing Est GFR ( Amer) Est GFR (Non-Af Amer) BUN/Creatinine Ratio Glucose POC Glucose 116 H Estimat Average Glucose Hemoglobin A1c Calcium Phosphorus Magnesium Total Bilirubin Direct Bilirubin AST ALT Alkaline Phosphatase Troponin I Total Protein Albumin Triglycerides Cholesterol LDL Cholesterol, Calc VLDL Cholesterol, Calc HDL Cholesterol Cholesterol/HDL Ratio Lipase Urine Color Urine Appearance Urine pH Ur Specific [place] Urine Protein Urine Glucose (UA) Urine Ketones Urine Blood Urine Nitrite Urine Bilirubin Urine Urobilinogen Ur Leukocyte Esterase Urine WBC (Auto) Urine RBC (Auto) U Hyaline Cast (Auto) U Epithel Cells (Auto) Urine Bacteria (Auto) Nasal Screen MRSA (PCR) Medications Administered Amlodipine Besylate (Norvasc) 5 mg PO DAILY [facility] Stop: 01/26/19 08:59 Last Admin: 12/27/18 08:34 Dose: 5 mg Documented by: [id number] Clopidogrel Bisulfate (Plavix) 75 mg PO QAM [facility] Stop: 01/26/19 08:59 Last Admin: 12/27/18 08:34 Dose: 75 mg Documented by: [id number] Ioversol (Optiray 320 100ml) 92 ml IV ONCE PRN PRN Reason: Interaction Checking Stop: 12/30/18 20:54 Last Admin: 12/26/18 20:56 Dose: 92 ml Documented by: [id number] Levothyroxine Sodium (Synthroid) 50 mcg PO DAILYBB [facility] Stop: 01/26/19 06:29 Last Admin: 12/27/18 06:00 Dose: 50 mcg Documented by: [id number] Metoprolol Tartrate (Lopressor) 25 mg PO BID [facility] Stop: 01/26/19 08:59 Last Admin: 12/27/18 08:34 Dose: 25 mg Documented by: [id number] PG Care Time/CCT Total # of Minutes Spent Total Time Spent with Patient: Total time spent is greater than 50% in coordination of care (as documented) at patient's floor/unit and/or counseling patient: Resident Activity Tracking Resident Involvement: Resident Care Provided Care Provided: Adult Hospital Medicine (ICU) (1) ST elevation (STEMI) myocardial infarction Involved coronary artery: unspecified coronary artery Qualified Code(s): I21.3 - ST elevation (STEMI) myocardial infarction of unspecified site
[2018-12-27 07:33] LABS: Estimated Average Glucose 111 mg/dl; Hemoglobin A1C 5.5 % (4.5-5.6)
[2018-12-27] MEDS ORDERED: POLYETHYLENE (MIRALAX) 17 GM PACK PO ONE (08:00)
[2018-12-27] MEDS: CLOPIDOGREL BISULFATE 75 MG TAB PO SCH (08:34)
[2018-12-27] MEDS: AMLODIPINE BESYLATE 5 MG TAB PO SCH (08:34)
[2018-12-27] MEDS: METOPROLOL TARTRATE 25 MG TAB PO SCH ×2 (08:34→20:10)
[2018-12-27] MEDS ORDERED: ASPIRIN 81 MG ECTAB PO SCH (09:00)
[2018-12-27] MEDS: ASPIRIN 81 MG CHEW PO SCH (12:22)
[2018-12-27] MEDS: SENNA 8.6 MG TAB PO PRN (12:22)
[2018-12-27] MEDS: DOCUSATE SODIUM SYRUP 100 MG/10 ML UDC PO PRN (12:22)
--- NOTE | 2018-12-27 14:22 | Hospitalist Progress Note ---
Date of Service December 27, 2018 Assessment & Plan (1) ST elevation (STEMI) myocardial infarction: (2) S/P drug eluting coronary stent placement: 88-year-old female from [facility] brought in for abdominal pain, in ER complained of chest pain. EKG showed ST elevated CO in the inferior leads. Acute ST elevated myocardial infarction in inferior leads, s/p cardiac catheterization which showed 100% proximal occlusion, status post single drug-eluting stent. The patient also has 70-80% mid LAD lesion and angulated left main with 40% proximal stenosis. Loaded with Plavix, dual antiplatelet therapy for 1 year, beta antonio, and high-dose statin Close monitor in the ICU Echo showed mild LV dysfunction, severe inferior hypokinesis Cardiology following, continue DAPT with aspirin, clopidogrel Continue metoprolol 25 mg twice a day Plan to transition amlodipine to ARB, would like to start pt on statin (we will need to clarify documented allergy to Crestor before starting statin) (3) New onset atrial fibrillation: Overnight after PCI, then converted to sinus rhythm this a.m. (12/27/2018) Unless recurrent, prolonged A. fib would hold off on anticoagulation Cardiology following (4) Hypertension: On amlodipine, started on metoprolol We will continue to closely monitor (5) Hypothyroidism: Continue Synthroid (6) Constipation: Start a bowel regimen May need GI consult once stable due to mild infiltration of the perianal soft tissues Thickening of endometrium on the CAT scan Nonemergent pelvic ultrasound when patient is more stable or follow-up as outpatient (7) DVT prophylaxis: SCDs (8) Malnutrition: Patient is very thin, cachectic, BMI of 15.6 Per daughter, patient is a poor eater and she has been progressively losing weight over several years Dietitian consulted, started on dietary supplement Risk for aspiration Honey thick liquid diet Subjective Elderly female lying in bed, in no acute distress. Denies any fevers, chills, chest pain, palpitations, shortness of breath, abdominal pain, nausea, vomiting. Daughter at the bedside, concerned about damaged dentures. Speech eval - pt on honey thick diet. Malnurished, per daughter , pt has been loosing weight over years, as she is a very poor eater. Review of Systems Review of Systems: All systems reviewed & are unremarkable except as noted in HPI & below Constitutional: + fatigue; no fever and no chills Respiratory: no cough and no dyspnea Cardiovascular: no chest pain, no palpitations and no edema Gastrointestinal: no abdominal pain, no nausea and no vomiting Physical Exam Physical Exam: GENERAL: Elderly cachectic female lying in bed in no acute distress HEENT: Normocephalic, atraumatic,PERRL, EOMI, anicteric sclerae NECK: No JVD, no neck masses, no carotid bruits. CV: regular rate and rhythm, no murmur, no gallop. RESPIRATORY: No accessory muscle use. CTAB No wheezing, no crackles. ABDOMEN: Soft, bowel sounds present, nontender. No distention. NEURO: Awake and alert. Moves all 4 extremities spontaneously. EXTREMITIES: No edema, no erythema. Right radial cardiac cath site, without significant ecchymosis. Results & Data Vital Signs (Past 12 Hours) Vital Signs Temp Pulse Pulse Resp BP BP Pulse Ox 12/27/18 11:00 78 17 116/68 95 12/27/18 10:00 87 16 120/79 94 12/27/18 09:00 78 15 114/38 L 96 12/27/18 08:32 36.9 C 74 15 108/62 94 12/27/18 08:00 90 16 106/63 94 12/27/18 07:00 103 H 18 94/65 L 96 12/27/18 06:00 96 H 16 88/65 L 96 12/27/18 05:20 94 H 22 84/56 L 95 12/27/18 04:50 101 H 113/61 12/27/18 04:20 36.4 C L 105 H 15 113/61 97 12/27/18 03:20 94 H 16 98/58 L 94 Laboratory Results 12/27/18 12/27/18 12/27/18 Range/Units 11:33 10:52 06:04 WBC (4.8-10.8) K/uL RBC (4.2-5.4) M/uL Hgb (12.0-16.0) g/dL Hct (37-47) % MCV (80-100) fL MCH (25-34) pg MCHC (32-36) g/dL RDW Std Deviation (36.4-46.3) fL RDW Coeff of Stephanie (11.5-14.5) % Plt Count (130-400) K/uL MPV (7.4-10.4) fL Immature Gran % (Auto) % Neut % (Auto) % Lymph % (Auto) % Mcpherson % (Auto) % Eos % (Auto) % Baso % (Auto) % Immature Gran # (Auto) (0.00-0.02) K/uL Neut # (Auto) (1.4-6.5) K/uL Lymph # (Auto) (1.2-3.4) K/uL Mcpherson # (Auto) (0.11-0.59) K/uL Eos # (Auto) (0-0.5) K/uL Baso # (Auto) (0-0.2) K/uL PT (9.0-12.0) Seconds INR (0.9-1.1) APTT (21.0-31.0) Seconds PTT Ratio Sodium (136-145) mmol/L Potassium (3.5-5.1) mmol/L Chloride (98-107) mmol/L Carbon Dioxide (21-32) mmol/L Anion Gap (3-11) BUN (7-18) mg/dl Creatinine (0.6-1.2) mg/dl Est Cr Clr Drug Dosing ml/min Est GFR ( Amer) Est GFR (Non-Af Amer) BUN/Creatinine Ratio (10-20) Glucose (70-99) mg/dl POC Glucose 105 H 116 H (70-99) Estimat Average Glucose mg/dl Hemoglobin A1c (4.5-5.6) % Calcium (8.5-10.1) mg/dl Phosphorus (2.5-4.9) mg/dl Magnesium (1.8-2.4) mg/dl Total Bilirubin (0.2-1) mg/dl Direct Bilirubin (0-0.2) mg/dl AST (15-37) U/L ALT (12-78) U/L Alkaline Phosphatase (45-117) U/L Troponin I 91.100 H* (0-0.045) ng/ml Total Protein (6.4-8.2) gm/dl Albumin (3.4-5.0) gm/dl Triglycerides (0-150) mg/dl Cholesterol (0-200) mg/dl LDL Cholesterol, Calc mg/dl VLDL Cholesterol, Calc mg/dl HDL Cholesterol mg/dl Cholesterol/HDL Ratio Lipase (73-393) U/L Urine Color Urine Appearance (Clear) Urine pH (4.5-7.5) Ur Specific [place] (1.000-1.030) Urine Protein (Negative) Urine Glucose (UA) (Negative) Urine Ketones (Negative) Urine Blood (Negative) Urine Nitrite (Negative) Urine Bilirubin (Negative) Urine Urobilinogen (Negative) Ur Leukocyte Esterase (Negative) Urine WBC (Auto) (0-5) /hpf Urine RBC (Auto) (0-4) /hpf U Hyaline Cast (Auto) (0-5) /lpf U Epithel Cells (Auto) (0-5) /lpf Urine Bacteria (Auto) (Negative) Nasal Screen MRSA (PCR) (Negative) 12/27/18 12/27/18 12/27/18 Range/Units 04:02 04:02 04:02 WBC 11.21 H (4.8-10.8) K/uL RBC 3.72 L (4.2-5.4) M/uL Hgb 11.1 L (12.0-16.0) g/dL Hct 33.3 L (37-47) % MCV 89.5 (80-100) fL MCH 29.8 (25-34) pg MCHC 33.3 (32-36) g/dL RDW Std Deviation 43.6 (36.4-46.3) fL RDW Coeff of Stephanie 13.4 (11.5-14.5) % Plt Count 302 (130-400) K/uL MPV 11.5 H (7.4-10.4) fL Immature Gran % (Auto) 0.3 % Neut % (Auto) 79.9 % Lymph % (Auto) 8.9 % Mcpherson % (Auto) 10.8 % Eos % (Auto) 0.0 % Baso % (Auto) 0.1 % Immature Gran # (Auto) 0.03 H (0.00-0.02) K/uL Neut # (Auto) 8.96 H (1.4-6.5) K/uL Lymph # (Auto) 1.00 L (1.2-3.4) K/uL Mcpherson # (Auto) 1.21 H (0.11-0.59) K/uL Eos # (Auto) 0.00 (0-0.5) K/uL Baso # (Auto) 0.01 (0-0.2) K/uL PT (9.0-12.0) Seconds INR (0.9-1.1) APTT (21.0-31.0) Seconds PTT Ratio Sodium 137 (136-145) mmol/L Potassium 4.6 (3.5-5.1) mmol/L Chloride 104 (98-107) mmol/L Carbon Dioxide 27 (21-32) mmol/L Anion Gap 6.0 (3-11) BUN 14 (7-18) mg/dl Creatinine 0.37 L (0.6-1.2) mg/dl Est Cr Clr Drug Dosing 68.3 ml/min Est GFR ( Amer) 111.4 Est GFR (Non-Af Amer) 96.1 BUN/Creatinine Ratio 39.4 H (10-20) Glucose 115 H (70-99) mg/dl POC Glucose (70-99) Estimat Average Glucose 111 mg/dl Hemoglobin A1c 5.5 (4.5-5.6) % Calcium 8.8 (8.5-10.1) mg/dl Phosphorus 4.2 (2.5-4.9) mg/dl Magnesium 2.0 (1.8-2.4) mg/dl Total Bilirubin (0.2-1) mg/dl Direct Bilirubin (0-0.2) mg/dl AST (15-37) U/L ALT (12-78) U/L Alkaline Phosphatase (45-117) U/L Troponin I 117.000 H* (0-0.045) ng/ml Total Protein (6.4-8.2) gm/dl Albumin (3.4-5.0) gm/dl Triglycerides 59 (0-150) mg/dl Cholesterol 151 (0-200) mg/dl LDL Cholesterol, Calc 78 mg/dl VLDL Cholesterol, Calc 12 mg/dl HDL Cholesterol 61 mg/dl Cholesterol/HDL Ratio 3 Lipase (73-393) U/L Urine Color Urine Appearance (Clear) Urine pH (4.5-7.5) Ur Specific [place] (1.000-1.030) Urine Protein (Negative) Urine Glucose (UA) (Negative) Urine Ketones (Negative) Urine Blood (Negative) Urine Nitrite (Negative) Urine Bilirubin (Negative) Urine Urobilinogen (Negative) Ur Leukocyte Esterase (Negative) Urine WBC (Auto) (0-5) /hpf Urine RBC (Auto) (0-4) /hpf U Hyaline Cast (Auto) (0-5) /lpf U Epithel Cells (Auto) (0-5) /lpf Urine Bacteria (Auto) (Negative) Nasal Screen MRSA (PCR) (Negative) 12/26/18 12/26/18 12/26/18 Range/Units 23:46 23:10 21:28 WBC (4.8-10.8) K/uL RBC (4.2-5.4) M/uL Hgb (12.0-16.0) g/dL Hct (37-47) % MCV (80-100) fL MCH (25-34) pg MCHC (32-36) g/dL RDW Std Deviation (36.4-46.3) fL RDW Coeff of Stephanie (11.5-14.5) % Plt Count (130-400) K/uL MPV (7.4-10.4) fL Immature Gran % (Auto) % Neut % (Auto) % Lymph % (Auto) % Mcpherson % (Auto) % Eos % (Auto) % Baso % (Auto) % Immature Gran # (Auto) (0.00-0.02) K/uL Neut # (Auto) (1.4-6.5) K/uL Lymph # (Auto) (1.2-3.4) K/uL Mcpherson # (Auto) (0.11-0.59) K/uL Eos # (Auto) (0-0.5) K/uL Baso # (Auto) (0-0.2) K/uL PT (9.0-12.0) Seconds INR (0.9-1.1) APTT (21.0-31.0) Seconds PTT Ratio Sodium (136-145) mmol/L Potassium (3.5-5.1) mmol/L Chloride (98-107) mmol/L Carbon Dioxide (21-32) mmol/L Anion Gap (3-11) BUN (7-18) mg/dl Creatinine (0.6-1.2) mg/dl Est Cr Clr Drug Dosing ml/min Est GFR ( Amer) Est GFR (Non-Af Amer) BUN/Creatinine Ratio (10-20) Glucose (70-99) mg/dl POC Glucose 126 H (70-99) Estimat Average Glucose mg/dl Hemoglobin A1c (4.5-5.6) % Calcium (8.5-10.1) mg/dl Phosphorus (2.5-4.9) mg/dl Magnesium (1.8-2.4) mg/dl Total Bilirubin (0.2-1) mg/dl Direct Bilirubin (0-0.2) mg/dl AST (15-37) U/L ALT (12-78) U/L Alkaline Phosphatase (45-117) U/L Troponin I (0-0.045) ng/ml Total Protein (6.4-8.2) gm/dl Albumin (3.4-5.0) gm/dl Triglycerides (0-150) mg/dl Cholesterol (0-200) mg/dl LDL Cholesterol, Calc mg/dl VLDL Cholesterol, Calc mg/dl HDL Cholesterol mg/dl Cholesterol/HDL Ratio Lipase (73-393) U/L Urine Color Yellow Urine Appearance Cloudy A (Clear) Urine pH 8.0 H (4.5-7.5) Ur Specific [place] 1.035 H (1.000-1.030) Urine Protein Negative (Negative) Urine Glucose (UA) Negative (Negative) Urine Ketones Negative (Negative) Urine Blood Negative (Negative) Urine Nitrite Negative (Negative) Urine Bilirubin Negative (Negative) Urine Urobilinogen Negative (Negative) Ur Leukocyte Esterase Negative (Negative) Urine WBC (Auto) 1-5 (0-5) /hpf Urine RBC (Auto) 5-10 H (0-4) /hpf U Hyaline Cast (Auto) 1-5 (0-5) /lpf U Epithel Cells (Auto) 5-10 H (0-5) /lpf Urine Bacteria (Auto) Negative (Negative) Nasal Screen MRSA (PCR) Negative (Negative) 12/26/18 12/26/18 12/26/18 Range/Units 20:20 20:20 20:20 WBC 12.13 H (4.8-10.8) K/uL RBC 4.19 L (4.2-5.4) M/uL Hgb 12.7 (12.0-16.0) g/dL Hct 37.1 (37-47) % MCV 88.5 (80-100) fL MCH 30.3 (25-34) pg MCHC 34.2 (32-36) g/dL RDW Std Deviation 42.9 (36.4-46.3) fL RDW Coeff of Stephanie 13.2 (11.5-14.5) % Plt Count 328 (130-400) K/uL MPV 11.6 H (7.4-10.4) fL Immature Gran % (Auto) 0.1 % Neut % (Auto) 92.2 % Lymph % (Auto) 3.9 % Mcpherson % (Auto) 3.5 % Eos % (Auto) 0.1 % Baso % (Auto) 0.2 % Immature Gran # (Auto) 0.01 (0.00-0.02) K/uL Neut # (Auto) 11.19 H (1.4-6.5) K/uL Lymph # (Auto) 0.47 L (1.2-3.4) K/uL Mcpherson # (Auto) 0.43 (0.11-0.59) K/uL Eos # (Auto) 0.01 (0-0.5) K/uL Baso # (Auto) 0.02 (0-0.2) K/uL PT 10.1 (9.0-12.0) Seconds INR 1.0 (0.9-1.1) APTT 24.9 (21.0-31.0) Seconds PTT Ratio 0.9 Sodium 136 (136-145) mmol/L Potassium 4.3 (3.5-5.1) mmol/L Chloride 101 (98-107) mmol/L Carbon Dioxide 29 (21-32) mmol/L Anion Gap 6.0 (3-11) BUN 16 (7-18) mg/dl Creatinine 0.53 L (0.6-1.2) mg/dl Est Cr Clr Drug Dosing 50.2 ml/min Est GFR ( Amer) 98.9 Est GFR (Non-Af Amer) 85.4 BUN/Creatinine Ratio 31.1 H (10-20) Glucose 147 H (70-99) mg/dl POC Glucose (70-99) Estimat Average Glucose mg/dl Hemoglobin A1c (4.5-5.6) % Calcium 9.6 (8.5-10.1) mg/dl Phosphorus (2.5-4.9) mg/dl Magnesium (1.8-2.4) mg/dl Total Bilirubin 0.4 (0.2-1) mg/dl Direct Bilirubin 0.2 (0-0.2) mg/dl AST 133 H (15-37) U/L ALT 38 (12-78) U/L Alkaline Phosphatase 80 (45-117) U/L Troponin I 7.690 H* (0-0.045) ng/ml Total Protein 6.9 (6.4-8.2) gm/dl Albumin 3.7 (3.4-5.0) gm/dl Triglycerides (0-150) mg/dl Cholesterol (0-200) mg/dl LDL Cholesterol, Calc mg/dl VLDL Cholesterol, Calc mg/dl HDL Cholesterol mg/dl Cholesterol/HDL Ratio Lipase 78 (73-393) U/L Urine Color Urine Appearance (Clear) Urine pH (4.5-7.5) Ur Specific [place] (1.000-1.030) Urine Protein (Negative) Urine Glucose (UA) (Negative) Urine Ketones (Negative) Urine Blood (Negative) Urine Nitrite (Negative) Urine Bilirubin (Negative) Urine Urobilinogen (Negative) Ur Leukocyte Esterase (Negative) Urine WBC (Auto) (0-5) /hpf Urine RBC (Auto) (0-4) /hpf U Hyaline Cast (Auto) (0-5) /lpf U Epithel Cells (Auto) (0-5) /lpf Urine Bacteria (Auto) (Negative) Nasal Screen MRSA (PCR) (Negative) Medications Administered Current Inpatient Medications Acetaminophen (Tylenol) 650 mg PO Q4H PRN PRN Reason: Mild Pain (scale 1-3) Stop: 01/25/19 22:49 Amlodipine Besylate (Norvasc) 5 mg PO DAILY [facility] Stop: 01/26/19 08:59 Last Admin: 12/27/18 08:34 Dose: 5 mg Documented by: Aspirin ([facility]in Chew) [facility] [place] Stop: 01/26/19 08:59 Last Admin: 12/27/18 12:22 Dose: 81 mg Documented by: Clopidogrel Bisulfate (Plavix) 75 mg PO QAM [facility] Stop: 01/26/19 08:59 Last Admin: 12/27/18 08:34 Dose: 75 mg Documented by: Docusate Sodium (Colace) 100 mg PO BID PRN PRN Reason: Constipation Stop: 01/26/19 10:14 Last Admin: 12/27/18 12:22 Dose: 100 mg Documented by: Ioversol (Optiray 320 100ml) 92 ml IV ONCE PRN PRN Reason: Interaction Checking Stop: 12/30/18 20:54 Last Admin: 12/26/18 20:56 Dose: 92 ml Documented by: Levothyroxine Sodium (Synthroid) 50 mcg PO DAILYBB [facility] Stop: 01/26/19 06:29 Last Admin: 12/27/18 06:00 Dose: 50 mcg Documented by: Metoprolol Tartrate (Lopressor) 25 mg PO BID [facility] Stop: 01/26/19 08:59 Last Admin: 12/27/18 08:34 Dose: 25 mg Documented by: Miscellaneous (Icu Protocol For Hyperglycemia) 1 ea N/A PRN PRN; Protocol PRN Reason: Hyperglycemia Protocol Stop: 12/28/18 22:45 Ondansetron HCl (Zofran) 4 mg IV Q6H PRN PRN Reason: Nausea And Vomiting Stop: 01/25/19 22:49 Sennosides (Senokot) 8.6 mg PO Q48H PRN PRN Reason: Constipation Stop: 01/26/19 01:49 Last Admin: 12/27/18 12:22 Dose: 8.6 mg Documented by: (1) ST elevation (STEMI) myocardial infarction Involved coronary artery: unspecified coronary artery Qualified Code(s): I21.3 - ST elevation (STEMI) myocardial infarction of unspecified site
--- NOTE | 2018-12-27 20:55 | Cardiology Progress Note ---
Date of Service December 27, 2018 Assessment & Plan (1) ST elevation (STEMI) myocardial infarction: 2. Paroxysmal atrial fibrillation with RVR 3. Mild LV dysfunction, severe inferior hypokinesis 4. Hypertension 5. Dementia/frailty/dysphagia Chest pain-free, troponin peaked. LV function largely preserved with only inferior wall motion abnormality. A. fib with RVR overnight, converted to sinus rhythm Post procedure labs stable. No access site complications. Continue DAPT with aspirin, clopidogrel Unless recurrent, prolonged atrial fibrillation would hold off on anticoagulation Continue metoprolol 25 mg twice daily. Transition amlodipine to ARB Start statin From a cardiac standpoint okay for transition to telemetry service. Subjective No complaints today. Denies any chest pain. Denies pain at access site. AF with RVR overnight. Converted to sinus rhythm this AM. Review of Systems Review of Systems: All systems reviewed & are unremarkable except as noted in HPI & below Physical Exam Physical Exam: General: Comfortable, no acute distress HEENT: Sclerae anicteric, mucous membranes moist Lungs: Clear to auscultation bilaterally Cardiac: Regular rate and rhythm, no murmurs. Abdomen: Soft, nontender, nondistended Extremities: Warm, well perfused, no edema. Right radial artery access site with minimal ecchymosis, no hematoma. Distal pulse and sensation intact. Skin: No rashes or lesions. Neuro: Nonfocal Psych: Alert, normal mood Results & Data Vital Signs (Past 12 Hours) Vital Signs Temp Pulse Resp BP Pulse Ox 12/27/18 18:00 85 17 110/60 96 12/27/18 17:00 110 H 19 110/80 95 12/27/18 16:00 95 H 21 126/69 97 12/27/18 15:00 97.9 F 97 H 17 141/73 H 96 12/27/18 14:00 82 16 117/71 96 12/27/18 13:00 94 H 18 120/71 96 12/27/18 12:00 77 16 108/59 L 94 12/27/18 11:27 87 20 113/69 95 12/27/18 11:00 78 17 116/68 95 12/27/18 10:00 87 16 120/79 94 12/27/18 09:00 78 15 114/38 L 96 PG Care Time/CCT Total # of Minutes Spent Total Time Spent with Patient: Total time spent is greater than 50% in coordination of care (as documented) at patient's floor/unit and/or counseling patient: (1) ST elevation (STEMI) myocardial infarction Involved coronary artery: unspecified coronary artery Qualified Code(s): I21.3 - ST elevation (STEMI) myocardial infarction of unspecified site
[2018-12-28 04:19] LABS: Basophils # (auto) 0.04 K/uL (0-0.2); Basophils % (auto) 0.6 %; Eosinophils # (auto) 0.08 K/uL (0-0.5); Eosinophils % (auto) 1.1 %; Hematocrit (blood only) 33.4 % (37-47); Hemoglobin 11.1 g/dL (12.0-16.0); Immature Granulocytes # (auto) 0.01 K/uL (0.00-0.02); Immature Granulocytes % (auto) 0.1 %; Lymphocytes # (auto) 1.48 K/uL (1.2-3.4); Lymphocytes % (auto) 21.2 %; Mean Corpuscular Hgb Conc 33.2 g/dL (32-36); Mean Corpuscular Volume 90.3 fL (80-100); Mean Platelet Volume 11.4 fL (7.4-10.4); Monocytes # (auto) 0.97 K/uL (0.11-0.59); Monocytes % (auto) 13.9 %; Neutrophils # (auto) 4.41 K/uL (1.4-6.5); Neutrophils % (auto) 63.1 %; Platelet Count 235 K/uL (130-400); RDW Coefficient of Variation 13.6 % (11.5-14.5); RDW Standard Deviation 45.1 fL (36.4-46.3); White Blood Count 6.99 K/uL (4.8-10.8)
[2018-12-28 04:36] LABS: BUN Creatinine Ratio 58.3 (10-20); Calcium 8.4 mg/dl (8.5-10.1); Creatinine Clr Calc Pharmacy 85.9 ml/min; Est GFR (African American) 119.3; Magnesium 1.9 mg/dl (1.8-2.4)
[2018-12-28 04:44] LABS: Phosphorus 2.5 mg/dl (2.5-4.9)
[2018-12-28] MEDS: LEVOTHYROXINE SODIUM 50 MCG TABLET PO SCH (06:22)
--- NOTE | 2018-12-28 06:59 | Critical Care Progress Note ---
Date of Service December 28, 2018 Assessment & Plan (1) Admitted to intensive care unit: Reason Critically Ill: 88-year-old female with acute inferior STEMI status post PTCA with GERMÁN x1 to the RCA. New onset A. fib status post intervention requiring close hemodynamic monitoring in the acute postprocedural phase. NEURO - * CAM ICU: NEGATIVE * Dementia: * Continue home Rx as written. * Pain: Acetaminophen/Morphine PRN CARDIAC/VASCULAR - * Acute Inferior STEMI s/p PTCA w/ GERMÁN x1 to the RCA: * DAPT x1 yr. * ASCVD per typical. * Echo showed LV EF 45-50%; severe inferior wall hypokinesis; mild tricuspid and mitral regurg * New onset A-fib w/ RVR: * s/p PTCA w/ intervention. * C/w PO dose of Metoprolol @25 mg BID. * [id number]: 4/CHADS2: 2 --> per overnight team's discussion w/ interventionalist, will avoid anticoagulation in the acute post-procedural phase as patient is high risk for bleeding. Will reassess necessity for anticoagulation over the next 24 hours. * EKG (on presentation): SR w/ PVCs @83bpm. Acute ST Elevation in inferior leads. QTc 474 ms. * EKG (post-PTIC): A-fib w/ RVR @[address] elevation in inferior leads. QTc 445 ms. * Monitor on telemetry. RESPIRATORY - * No h/o respiratory issues otherwise. * Saturating well on RA at this point. GI/NUTRITION - * Speech consult placed 2/2 patient's statements for needs for thickened liquids. Outside records do not provide this detail. * Speech consult showed moderate oropharyngeal dysphagia w/recs: Full liquid d iet, nectar thick; aspiration and GERD precautions, no straws; safe swallow strategies; requires continued speech therapy on discharge to SNF would benefit from dysphagia therapy program; also benefit from repeat video swallow study in ~ 4-6 weeks. * AHA diet. * Patient with severe protein malnutrition RENAL/LYTES - * No significant electrolyte derangements. * Monitor closely s/p IVC load. - * No concerns at this time. ENDO - * No h/o DM * BSGs per unit protocol. ISS --> gtt per unit policy. * Hypothyroidism: * Continue home dose of Levothyroxine. HEME - * Stable H&H * Monitor closely for s/s of bleeding s/p Heparin/Plavix/ASA load. ID - * No concerns for infectious contribution at this time. LINES/IV ACCESS - * PIVs x2 * TR Band x2 to the RIGHT Wrist. DVT PROPHYLAXIS - * Will hold s/p Heparin/Plavix/ASA load. * SCDs (2) ST elevation (STEMI) myocardial infarction: (3) S/P drug eluting coronary stent placement: (4) S/P PTCA (percutaneous transluminal coronary angioplasty): (5) New onset atrial fibrillation: (6) Hyponatremia: (7) Dyslipidemia: (8) Hypothyroidism: (9) Osteoporosis: (10) Hypertension: Supervising Physician Co-Signing Physician Notes Dr. Johnson was resident physician during care of patient. I separately evaluated patient for hylton portions of the history and the exam. I was present during the critical portion of medical decision making, and I discussed the case with the resident. I generally agree with the findings and plan. Patient was discussed in multidisciplinary rounds, patient asymptomatic stable for downgrade out of ICU Subjective Michelle is resting with comfort his morning and tolerating meals without complications. No acute complaints. Physical Exam Constitutional: + thin, + cachectic, + frail appearing, cooperative and comfortable Eyes: + anicteric sclerae Neck: normal visual inspection and trachea midline Respiratory: no respiratory distress and does not use accessory muscles Auscultation: lungs clear to auscultation bilaterally and + diminished lung sounds; no wheezes Cardiovascular: Rate/Rhythm: regular rate and + irregularly irregular Gastrointestinal (Abdomen): Percussion/Palpation: abdomen soft; abdomen nontender Musculoskeletal: Head/Neck/Chest: normocephalic and head atraumatic Skin: no rashes, warm and dry Neurologic: moves all extremities and awake Psychiatric: Orientation: alert and cooperative; + not oriented to place Results & Data Vital Signs (Past 12 Hours) Vital Signs Temp Pulse Pulse Resp BP BP Pulse Ox 12/28/18 06:00 101 H 18 120/67 96 12/28/18 05:00 71 16 88/48 L 95 12/28/18 04:00 36.7 C 101 H 19 146/83 H 94 12/28/18 03:00 91 H 18 114/65 96 12/28/18 02:00 92 H 99 H 16 126/71 126/71 94 12/28/18 01:10 95 H 18 127/68 96 12/28/18 00:00 94 H 18 111/60 95 12/27/18 23:46 36.4 C L 12/27/18 23:44 108 H 12/27/18 23:00 108 H 16 131/77 94 12/27/18 22:00 104 H 17 118/65 94 12/27/18 21:39 118 H 17 140/85 94 12/27/18 21:00 83 16 122/69 94 12/27/18 20:00 119 H 20 127/79 96 12/27/18 19:00 101 H 17 130/80 95 Laboratory Results Laboratory Results - last 24 hr 12/27/18 12/27/18 12/27/18 10:52 11:33 15:56 WBC RBC Hgb Hct MCV MCH MCHC RDW Std Deviation RDW Coeff of Stephanie Plt Count MPV Immature Gran % (Auto) Neut % (Auto) Lymph % (Auto) Castro % (Auto) Eos % (Auto) Baso % (Auto) Immature Gran # (Auto) Neut # (Auto) Lymph # (Auto) Castro # (Auto) Eos # (Auto) Baso # (Auto) Sodium Potassium Chloride Carbon Dioxide Anion Gap BUN Creatinine Est Cr Clr Drug Dosing Est GFR ( Amer) Est GFR (Non-Af Amer) BUN/Creatinine Ratio Glucose POC Glucose 105 H 99 Calcium Phosphorus Magnesium Troponin I 91.100 H* 12/28/18 12/28/18 12/28/18 04:08 04:08 04:11 WBC 6.99 RBC 3.70 L Hgb 11.1 L Hct 33.4 L MCV 90.3 MCH 30.0 MCHC 33.2 RDW Std Deviation 45.1 RDW Coeff of Stephanie 13.6 Plt Count 235 MPV 11.4 H Immature Gran % (Auto) 0.1 Neut % (Auto) 63.1 Lymph % (Auto) 21.2 Castro % (Auto) 13.9 Eos % (Auto) 1.1 Baso % (Auto) 0.6 Immature Gran # (Auto) 0.01 Neut # (Auto) 4.41 Lymph # (Auto) 1.48 Castro # (Auto) 0.97 H Eos # (Auto) 0.08 Baso # (Auto) 0.04 Sodium 139 Potassium 4.0 Chloride 107 Carbon Dioxide 30 Anion Gap 2.0 L BUN 17 Creatinine 0.30 L Est Cr Clr Drug Dosing 85.9 Est GFR ( Amer) 119.3 Est GFR (Non-Af Amer) 103.0 BUN/Creatinine Ratio 58.3 H Glucose 85 POC Glucose 86 Calcium 8.4 L Phosphorus 2.5 D Magnesium 1.9 Troponin I Medications Administered Amlodipine Besylate (Norvasc) 5 mg PO DAILY [facility] Stop: 01/26/19 08:59 Last Admin: 12/28/18 08:18 Dose: 5 mg Documented by: [id number] Admin: 12/27/18 08:34 Dose: 5 mg Documented by: [id number] Aspirin (Aspirin Chew) 81 mg PO [facility] Stop: 01/26/19 08:59 Last Admin: 12/28/18 08:19 Dose: 81 mg Documented by: [id number] Admin: 12/27/18 12:22 Dose: 81 mg Documented by: [id number] Clopidogrel Bisulfate (Plavix) 75 mg PO [facility] Stop: 01/26/19 08:59 Last Admin: 12/28/18 08:19 Dose: 75 mg Documented by: [id number] Admin: 12/27/18 08:34 Dose: 75 mg Documented by: [id number] Docusate Sodium (Colace) 100 mg PO BID PRN PRN Reason: Constipation Stop: 01/26/19 10:14 Last Admin: 12/27/18 12:22 Dose: 100 mg Documented by: [id number] Ioversol (Optiray 320 100ml) 92 ml IV ONCE PRN PRN Reason: Interaction Checking Stop: 12/30/18 20:54 Last Admin: 12/26/18 20:56 Dose: 92 ml Documented by: [id number] Levothyroxine S[facility] ([facility]th[facility]) [facility] Stop: 01/26/19 06:29 Last Admin: 12/28/18 06:22 Dose: 50 mcg Documented by: [id number] Admin: 12/27/18 06:00 Dose: 50 mcg Documented by: [id number] Metoprolol Tartrate (Lopressor) 25 mg PO BID [facility] Stop: 01/26/19 08:59 Last Admin: 12/28/18 08:19 Dose: 25 mg Documented by: [id number] Admin: 12/27/18 20:10 Dose: 25 mg Documented by: [id number] Admin: 12/27/18 08:34 Dose: 25 mg Documented by: [id number] Sennosides (Senokot) 8.6 mg PO Q48H PRN PRN Reason: Constipation Stop: 01/26/19 01:49 Last Admin: 12/27/18 12:22 Dose: 8.6 mg Documented by: [id number] PG Care Time/CCT Total # of Minutes Spent Total Time Spent with Patient: Total time spent is greater than 50% in coordination of care (as documented) at patient's floor/unit and/or counseling patient: Resident Activity Tracking Resident Involvement: Resident Care Provided Care Provided: Adult Hospital Medicine (ICU) (1) ST elevation (STEMI) myocardial infarction Involved coronary artery: unspecified coronary artery Qualified Code(s): I21.3 - ST elevation (STEMI) myocardial infarction of unspecified site
--- NOTE | 2018-12-28 07:50 | Hospitalist Progress Note ---
Date of Service December 28, 2018 Assessment & Plan (1) ST elevation (STEMI) myocardial infarction: (2) S/P drug eluting coronary stent placement: 88-year-old female from [facility] brought in for abdominal pain, in ER complained of chest pain. EKG showed ST elevated IA in the inferior leads. Acute ST elevated myocardial infarction in inferior leads, s/p cardiac catheterization which showed 100% proximal occlusion, status post single drug-eluting stent. The patient also has 70-80% mid LAD lesion and angulated left main with 40% proximal stenosis. Loaded with Plavix, dual antiplatelet therapy for 1 year, beta antonio, and high-dose statin Currently in ICU for close hemodynamic monitoring, plan to downgrade to telemetry Echo showed mild LV dysfunction, severe inferior hypokinesis Cardiology following, continue DAPT with aspirin, clopidogrel Increase metoprolol to 50 mg twice a day Plan to transition amlodipine to ARB, would like to start pt on statin (we will need to clarify documented allergy to Crestor before starting statin, and documented allergy to MELBA inhibitor. Per patient's son it is not clear what kind of allergic reaction she had) (3) New onset atrial fibrillation: Overnight after PCI, then converted to sinus rhythm on (12/27/2018) Unless recurrent, prolonged A. fib would hold off on anticoagulation Cardiology following (4) Hypertension: On amlodipine, started on metoprolol Ideally would switch to ARB or MELBA, however patient has recommended allergy that needs to be clarified first We will continue to closely monitor (5) Hypothyroidism: Continue Synthroid (6) Constipation: Start a bowel regimen May need GI consult once stable due to mild infiltration of the perianal soft tissues Thickening of endometrium on the CAT scan Nonemergent pelvic ultrasound when patient is more stable or follow-up as outpatient (7) DVT prophylaxis: SCDs (8) Malnutrition: Patient is very thin, cachectic, BMI of 15.6 Per daughter, patient is a poor eater and she has been progressively losing weight over several years Dietitian consulted, started on dietary supplement Risk for aspiration Honey thick liquid diet Subjective Patient sitting up in the bed, eating dinner. No fevers, chills, chest pain, palpitations, shortness of breath, abdominal pain, nausea or vomiting. Overall feels well. Review of Systems Review of Systems: All systems reviewed & are unremarkable except as noted in HPI & below Constitutional: + fatigue; no fever and no chills Respiratory: no cough and no dyspnea Cardiovascular: no chest pain, no palpitations and no edema Gastrointestinal: no abdominal pain, no nausea and no vomiting Physical Exam Physical Exam: GENERAL: Elderly cachectic female sitting up in bed in no acute distress, eating HEENT: Normocephalic, atraumatic,PERRL, EOMI, anicteric sclerae NECK: No JVD, no neck masses, no carotid bruits. CV: regular rate and rhythm, no murmur, no gallop. RESPIRATORY: No accessory muscle use. CTAB No wheezing, no crackles. ABDOMEN: Soft, bowel sounds present, nontender. No distention. NEURO: Awake and alert. Moves all 4 extremities spontaneously. EXTREMITIES: No edema, no erythema. Right radial cardiac cath site, without significant ecchymosis. Results & Data Vital Signs (Past 12 Hours) Vital Signs Temp Pulse Pulse Resp BP BP Pulse Ox 12/28/18 06:00 101 H 18 120/67 96 12/28/18 05:00 71 16 88/48 L 95 12/28/18 04:00 36.7 C 101 H 19 146/83 H 94 12/28/18 03:00 91 H 18 114/65 96 12/28/18 02:00 92 H 99 H 16 126/71 126/71 94 12/28/18 01:10 95 H 18 127/68 96 12/28/18 00:00 94 H 18 111/60 95 12/27/18 23:46 36.4 C L 12/27/18 23:44 108 H 12/27/18 23:00 108 H 16 131/77 94 12/27/18 22:00 104 H 17 118/65 94 12/27/18 21:39 118 H 17 140/85 94 12/27/18 21:00 83 16 122/69 94 12/27/18 20:00 119 H 20 127/79 96 Laboratory Results 12/28/18 12/28/18 12/28/18 Range/Units 04:11 04:08 04:08 WBC 6.99 (4.8-10.8) K/uL RBC 3.70 L (4.2-5.4) M/uL Hgb 11.1 L (12.0-16.0) g/dL Hct 33.4 L (37-47) % MCV 90.3 (80-100) fL MCH 30.0 (25-34) pg MCHC 33.2 (32-36) g/dL RDW Std Deviation 45.1 (36.4-46.3) fL RDW Coeff of Stephanie 13.6 (11.5-14.5) % Plt Count 235 (130-400) K/uL MPV 11.4 H (7.4-10.4) fL Immature Gran % (Auto) 0.1 % Neut % (Auto) 63.1 % Lymph % (Auto) 21.2 % Nelson % (Auto) 13.9 % Eos % (Auto) 1.1 % Baso % (Auto) 0.6 % Immature Gran # (Auto) 0.01 (0.00-0.02) K/uL Neut # (Auto) 4.41 (1.4-6.5) K/uL Lymph # (Auto) 1.48 (1.2-3.4) K/uL Nelson # (Auto) 0.97 H (0.11-0.59) K/uL Eos # (Auto) 0.08 (0-0.5) K/uL Baso # (Auto) 0.04 (0-0.2) K/uL Sodium 139 (136-145) mmol/L Potassium 4.0 (3.5-5.1) mmol/L Chloride 107 (98-107) mmol/L Carbon Dioxide 30 (21-32) mmol/L Anion Gap 2.0 L (3-11) BUN 17 (7-18) mg/dl Creatinine 0.30 L (0.6-1.2) mg/dl Est Cr Clr Drug Dosing 85.9 ml/min Est GFR ( Amer) 119.3 Est GFR (Non-Af Amer) 103.0 BUN/Creatinine Ratio 58.3 H (10-20) Glucose 85 (70-99) mg/dl POC Glucose 86 (70-99) Calcium 8.4 L (8.5-10.1) mg/dl Phosphorus 2.5 D (2.5-4.9) mg/dl Magnesium 1.9 (1.8-2.4) mg/dl Troponin I (0-0.045) ng/ml 12/27/18 12/27/18 12/27/18 Range/Units 15:56 11:33 10:52 WBC (4.8-10.8) K/uL RBC (4.2-5.4) M/uL Hgb (12.0-16.0) g/dL Hct (37-47) % MCV (80-100) fL MCH (25-34) pg MCHC (32-36) g/dL RDW Std Deviation (36.4-46.3) fL RDW Coeff of Stephanie (11.5-14.5) % Plt Count (130-400) K/uL MPV (7.4-10.4) fL Immature Gran % (Auto) % Neut % (Auto) % Lymph % (Auto) % Nelson % (Auto) % Eos % (Auto) % Baso % (Auto) % Immature Gran # (Auto) (0.00-0.02) K/uL Neut # (Auto) (1.4-6.5) K/uL Lymph # (Auto) (1.2-3.4) K/uL Nelson # (Auto) (0.11-0.59) K/uL Eos # (Auto) (0-0.5) K/uL Baso # (Auto) (0-0.2) K/uL Sodium (136-145) mmol/L Potassium (3.5-5.1) mmol/L Chloride (98-107) mmol/L Carbon Dioxide (21-32) mmol/L Anion Gap (3-11) BUN (7-18) mg/dl Creatinine (0.6-1.2) mg/dl Est Cr Clr Drug Dosing ml/min Est GFR ( Amer) Est GFR (Non-Af Amer) BUN/Creatinine Ratio (10-20) Glucose (70-99) mg/dl POC Glucose 99 105 H (70-99) Calcium (8.5-10.1) mg/dl Phosphorus (2.5-4.9) mg/dl Magnesium (1.8-2.4) mg/dl Troponin I 91.100 H* (0-0.045) ng/ml Medications Administered Current Inpatient Medications Acetaminophen (Tylenol) 650 mg PO Q4H PRN PRN Reason: Mild Pain (scale 1-3) Stop: 01/25/19 22:49 Amlodipine Besylate (Norvasc) 5 mg PO DAILY [facility] Stop: 01/26/19 08:59 Last Admin: 12/27/18 08:34 Dose: 5 mg Documented by: Aspir[facility] ([facility]in Chew) [facility] [place]: 01/26/19 08:59 Last Admin: 12/27/18 12:22 Dose: 81 mg Documented by: Clopidogrel Bisulfate (Plavix) 75 mg PO QAM [facility] Stop: 01/26/19 08:59 Last Admin: 12/27/18 08:34 Dose: 75 mg Documented by: Docusate Sodium (Colace) 100 mg PO BID PRN PRN Reason: Constipation Stop: 01/26/19 10:14 Last Admin: 12/27/18 12:22 Dose: 100 mg Documented by: Ioversol (Optiray 320 100ml) 92 ml IV ONCE PRN PRN Reason: Interaction Checking Stop: 12/30/18 20:54 Last Admin: 12/26/18 20:56 Dose: 92 ml Documented by: Levothyroxine S[facility] ([facility]) [facility] Stop: 01/26/19 06:29 Last Admin: 12/28/18 06:22 Dose: 50 mcg Documented by: Metoprolol Tartrate (Lopressor) 25 mg PO BID [facility] Stop: 01/26/19 08:59 Last Admin: 12/27/18 20:10 Dose: 25 mg Documented by: [email or web address] (Icu Protocol For Hyperglycemia) 1 ea N/A PRN PRN; Protocol PRN Reason: Hyperglycemia Protocol Stop: 12/28/18 22:45 Ondansetron HCl (Zofran) 4 mg IV Q6H PRN PRN Reason: Nausea And Vomiting Stop: 01/25/19 22:49 Sennosides (Senokot) 8.6 mg PO Q48H PRN PRN Reason: Constipation Stop: 01/26/19 01:49 Last Admin: 12/27/18 12:22 Dose: 8.6 mg Documented by: (1) ST elevation (STEMI) myocardial infarction Involved coronary artery: unspecified coronary artery Qualified Code(s): I2 1.3 - ST elevation (STEMI) myocardial infarction of unspecified site
[2018-12-28] MEDS: AMLODIPINE BESYLATE 5 MG TAB PO SCH (08:18)
[2018-12-28] MEDS: ASPIRIN 81 MG CHEW PO SCH (08:19)
[2018-12-28] MEDS: METOPROLOL TARTRATE 25 MG TAB PO SCH (08:19)
[2018-12-28] MEDS: CLOPIDOGREL BISULFATE 75 MG TAB PO SCH (08:19)
[2018-12-28] MEDS ORDERED: METOPROLOL TARTRATE 25 MG TAB PO ONE (09:30)
--- NOTE | 2018-12-28 14:25 | Cardiology Progress Note ---
Date of Service December 28, 2018 Assessment & Plan (1) ST elevation (STEMI) myocardial infarction: 2. Paroxysmal atrial fibrillation with RVR 3. Mild LV dysfunction, severe inferior hypokinesis 4. Hypertension 5. Dementia/frailty/dysphagia Hemodynamically stable, chest pain-free. No recurrent atrial fibrillation. From a cardiac standpoint okay for transfer to telemetry today. Continue DAPT with aspirin, clopidogrel Unless recurrent, prolonged atrial fibrillation would hold off on anticoagulation Increase metoprolol to 50 mg twice daily Start losartan 25 mg daily tomorrow, discontinue amlodipine Start atorvastatin 20 Subjective Patient with no complaints today. Denies any chest pain. Denies any shortness of breath. Telemetry reviewedno arrhythmia, sinus tachycardia. Review of Systems Review of Systems: All systems reviewed & are unremarkable except as noted in HPI & below Physical Exam Physical Exam: General: Comfortable, no acute distress, thin HEENT: Sclerae anicteric, mucous membranes moist Lungs: Clear to auscultation bilaterally Cardiac: Regular rate and rhythm, no murmurs. Abdomen: Soft, nontender, nondistended Extremities: Warm, well perfused, no edema. Right radial artery access site with minimal ecchymosis, no hematoma. Distal pulse and sensation intact. Skin: No rashes or lesions. Neuro: Nonfocal Psych: Alert, normal mood Results & Data Vital Signs (Past 12 Hours) Vital Signs Temp Pulse Resp BP Pulse Ox 12/28/18 14:00 107 H 19 105/62 96 12/28/18 13:00 92 H 21 87/50 L 96 12/28/18 12:00 107 H 19 105/61 95 12/28/18 11:00 110 H 19 119/71 96 12/28/18 10:00 100 H 19 116/68 93 12/28/18 09:00 103 H 20 93/60 L 96 12/28/18 08:00 98.4 F 110 H 20 114/65 96 12/28/18 07:00 108 H 19 112/64 96 12/28/18 06:00 101 H 18 120/67 96 12/28/18 05:00 71 16 88/48 L 95 12/28/18 04:00 98.1 F 101 H 19 146/83 H 94 12/28/18 03:00 91 H 18 114/65 96 PG Care Time/CCT Total # of Minutes Spent Total Time Spent with Patient: Total time spent is greater than 50% in coordination of care (as documented) at patient's floor/unit and/or counseling patient: (1) ST elevation (STEMI) myocardial infarction Involved coronary artery: unspecified coronary artery Qualified Code(s): I21.3 - ST elevation (STEMI) myocardial infarction of unspecified site
[2018-12-28] MEDS ORDERED: MECLIZINE HCL 25 MG TAB PO PRN (19:27)
[2018-12-28] MEDS ORDERED: ACETAMINOPHEN 325 MG TAB PO PRN (19:27)
[2018-12-28] MEDS ORDERED: MENTHOL-ZINC OXIDE 360 APPLN/120 GM TUBE EXT PRN (19:27)
[2018-12-28] MEDS ORDERED: ARTIFICIAL TEARS OPB PRN (19:45)
[2018-12-28] MEDS: METOPROLOL TARTRATE 50 MG TAB PO SCH (21:32)
[2018-12-29] MEDS: LEVOTHYROXINE SODIUM 50 MCG TABLET PO SCH (06:00)
[2018-12-29] MEDS ORDERED: NON-FORMULARY MEDICATION (Food Supplemt, Lactose-Reduced [Boost] 1 EA) PO SCH (08:00)
[2018-12-29] MEDS: CALCIUM 600MG + VIT D 400 IU TAB PO SCH (08:41)
[2018-12-29] MEDS: AMLODIPINE BESYLATE 5 MG TAB PO SCH (08:44)
[2018-12-29] MEDS: MULTIVITAMIN TAB PO SCH (08:44)
[2018-12-29] MEDS: CLOPIDOGREL BISULFATE 75 MG TAB PO SCH (08:44)
[2018-12-29] MEDS: METOPROLOL TARTRATE 50 MG TAB PO SCH (08:47)
[2018-12-29] MEDS: ASPIRIN 81 MG CHEW PO SCH (08:53)
--- NOTE | 2018-12-29 13:35 | Hospitalist Progress Note ---
Date of Service December 29, 2018 Assessment & Plan (1) ST elevation (STEMI) myocardial infarction: (2) S/P drug eluting coronary stent placement: 88-year-old female from [facility] brought in for abdominal pain, in ER complained of chest pain. EKG showed ST elevated [place] in the inferior leads. Acute ST elevated myocardial infarction in inferior leads, s/p cardiac catheterization which showed 100% proximal occlusion, s/p single drug-eluting stent. The patient also has 70-80% mid LAD lesion and angulated left main with 40% proximal stenosis. Loaded with Plavix, dual antiplatelet therapy for 1 year, beta antonio, and high-dose statin (starting statin today) Currently in telemetry unit (downgraded from ICU yesterday), episodes of atrial tachycardia,c/w atrial flutter Echo showed mild LV dysfunction, severe inferior hypokinesis Cardiology following, continue DAPT with aspirin, clopidogrel Increase metoprolol to 100 mg twice a day Will d/c amlodipine, if BP tolerates after metoprolol incr., plan to start ARB Currently in our EMR, documented allergy to lisinopril and Crestor, after further research with her family, our EMR and [facility], (where patient currently resides) no evidence of medication allergies. Will start patient on statin today, and will closely monitor. (3) New onset atrial fibrillation: Overnight after PCI, then converted to sinus rhythm on (12/27/2018) Unless recurrent, prolonged A. fib would hold off on anticoagulation Now episodes of atrial tachycardia, likely a flutter, discussed again with cardiology and for now would hold off on AC Cardiology following (4) Hypertension: On amlodipine, started on metoprolol Plan to DC amlodipine today, as we increase metoprolol to 100 mg twice a day If BP tolerates, plan to start losartan We will continue to closely monitor (5) Hypothyroidism: Continue Synthroid (6) Constipation: Cont. bowel regimen Thickening of endometrium on the CAT scan Nonemergent pelvic ultrasound when patient is more stable or follow-up as outpatient (7) DVT prophylaxis: SCDs (8) Malnutrition: Patient is very thin, cachectic, BMI of 15.6 Per daughter, patient is a poor eater and she has been progressively losing weight over several years Dietitian consulted, started on dietary supplement Risk for aspiration Honey thick liquid diet Subjective Elderly thin female, laying in bed, in no acute distress. Currently denies any chest pain, shortness of breath, palpitations, abdominal pain, nausea, vomiting. Episodes of atrial tachycardia noted on telemetry, discussed with cardiology at the bedside. Also discussed anticoagulation/will hold off for now as patient is high risk for bleeding. Will discuss this also with her family. Contacted her daughter Winnie today, and also her son was called yesterday to discuss patient's possible allergies to medications. Neither her son or her daughter are aware of any medication allergies, EMR reviewed and also only allergies listed there were for latex and adhesives. Called [facility], where patient currently resides and they also only have listed allergies for latex and adhesives. Not clear why multiple medications were listed as allergies in our system recently. However less concerned about starting statin and/ or ARB. Will start atorvastatin today and will closely monitor. Review of Systems Review of Systems: All systems reviewed & are unremarkable except as noted in HPI & below Constitutional: no fever, no chills and no body aches Respiratory: no cough and no dyspnea Cardiovascular: no chest pain, no palpitations and no edema Gastrointestinal: no abdominal pain, no nausea and no vomiting Physical Exam Physical Exam: GENERAL: Elderly cachectic laying in bed in no acute distress HEENT: Normocephalic, atraumatic,PERRL, EOMI, anicteric sclerae NECK: No JVD, no neck masses, no carotid bruits. CV: Tachycardic, regular, no murmur, no gallop. RESPIRATORY: No accessory muscle use. CTAB No wheezing, no crackles. ABDOMEN: Soft, bowel sounds present, nontender to palpation. No distention. NEURO: Awake and alert. Moves all 4 extremities spontaneously. EXTREMITIES: No LE edema. Right radial cardiac cath site w/ecchymosis. Results & Data Vital Signs (Past 12 Hours) Vital Signs Temp Pulse Pulse Resp BP BP Pulse Ox 12/29/18 12:22 36.5 C 67 20 115/62 98 12/29/18 07:14 36.4 C L 76 16 113/68 99 12/29/18 07:00 75 12/29/18 04:30 36.4 C L 82 18 138/73 98 Medications Administered Current Inpatient Medications Acetaminophen (Tylenol) 650 mg PO QID PRN PRN Reason: P/F Stop: 01/27/19 19:26 Amlodipine Besylate (Norvasc) 5 mg PO DAILY [facility] Stop: 01/26/19 08:59 Last Admin: 12/29/18 08:44 Dose: 5 mg Documented by: Artificial Tears (Artificial Tears) 1 drops OPB BID PRN PRN Reason: DRY EYES Stop: 01/27/19 19:44 Aspirin (Aspirin Chew) 81 mg PO QAM [facility] Stop: 01/26/19 08:59 Last Admin: 12/29/18 08:53 Dose: 81 mg Documented by: Calamine/Phenol (Calmoseptine) 1 appln EXT DAILY PRN PRN Reason: IRRITATION TO PEERI RECTAL Stop: 01/27/19 19:26 Clopidogrel Bisulfate (Plavix) 75 [facility] Stop: 01/26/19 08:59 Last Admin: 12/29/18 08:44 Dose: 75 mg Documented by: Diphenhydramine HCl (Benadryl Capsule) 25 mg PO Q8H PRN PRN Reason: Itching Stop: 01/27/19 19:26 Docusate Sodium (Colace) 100 mg PO BID PRN PRN Reason: Constipation Stop: 01/26/19 10:14 Last Admin: 12/27/18 12:22 Dose: 100 mg Documented by: Levothyroxine Sodium (Synthroid) 50 mcg PO DAILYBB [facility] Stop: 01/26/19 06:29 Last Admin: 12/29/18 06:00 Dose: 50 mcg Documented by: Meclizine HCl (Antivert) 25 mg PO TID PRN PRN Reason: Dizziness Or Vertigo Stop: 01/27/19 19:26 Last Admin: 12/29/18 08:44 Dose: 25 mg Documented by: Metoprolol Tartrate (Lopressor) 50 mg PO BID [facility] Stop: 01/27/19 20:59 Last Admin: 12/29/18 08:47 Dose: 50 mg Documented by: Miscellaneous (Order Awaiting Action) 1 ea N/A QS [facility] Stop: 01/28/19 00:00 Last Admin: 12/29/18 08:50 Dose: Not Given Documented by: Multivitamins (Multivitamin Tab) 1 tab PO DAILY [facility] Stop: 01/28/19 08:59 Last Admin: 12/29/18 08:44 Dose: 1 tab Documented by: Multivitamins/Minerals (Caltrate Plus) 2 tab PO DAILY [facility] Stop: 01/28/19 08:59 Last Admin: 12/29/18 08:41 Dose: 2 tab Documented by: Ondansetron HCl (Zofran) 4 mg IV Q6H PRN PRN Reason: Nausea And Vomiting Stop: 01/25/19 22:49 Sennosides (Senokot) 8.6 mg PO Q48H PRN PRN Reason: Constipation Stop: 01/26/19 01:49 Last Admin: 12/27/18 12:22 Dose: 8.6 mg Documented by: (1) ST elevation (STEMI) myocardial infarction Involved coronary artery: unspecified coronary artery Qualified Code(s): I21.3 - ST elevation (STEMI) myocardial infarction of unspecified site
--- NOTE | 2018-12-29 15:33 | Cardiology Progress Note ---
Date of Service December 29, 2018 Assessment & Plan (1) ST elevation (STEMI) myocardial infarction: 2. Paroxysmal atrial fibrillation with RVR 3. Mild LV dysfunction, severe inferior hypokinesis 4. Hypertension 5. Dementia/frailty/dysphagia Hemodynamically stable, chest pain-free. Periods of paroxysmal SVT, atrial tachycardia versus atrial flutter Continue DAPT with aspirin, clopidogrel Increase metoprolol to 100 mg twice daily Can discontinue amlodipine. If tolerates increase beta-antonio would add losartan 25 mg daily Continue atorvastatin 20 Looks to have some periods of paroxysmal atrial flutter. Patient high risk for bleeding and at this point would favor holding off on anticoagulation unless prolonged, sustained episodes. From a cardiac standpoint okay with discharge tomorrow with follow-up with me in 2 weeks. Subjective Patient feeling well. No new complaints today. Wants to go home. Telemetry reviewedepisodes of tachycardia in the 120s up to high 140s. Looks to be atrial tachycardia with periods that seem more consistent with atrial flutter. Review of Systems Review of Systems: All systems reviewed & are unremarkable except as noted in HPI & below Physical Exam Physical Exam: General: Comfortable, no acute distress HEENT: Sclerae anicteric, mucous membranes moist Lungs: Clear to auscultation bilaterally, no rhonchi or wheezes Cardiac: Tachycardic, regular, no murmurs Abdomen: Soft, nontender, nondistended, positive bowel sounds. Extremities: Warm, well perfused, no edema. Right radial artery access site with ecchymosis, no hematoma. Distal pulse and sensation intact. Skin: No rashes or lesions. Neuro: Nonfocal Psych: Alert orient x3, normal affect and mood Results & Data Vital Signs (Past 12 Hours) Vital Signs Temp Pulse Pulse Pulse Resp BP BP 12/29/18 15:19 97.7 F 75 18 106/65 12/29/18 14:20 80 12/29/18 12:22 97.7 F 67 20 115/62 12/29/18 07:14 97.5 F L 76 16 113/68 12/29/18 07:00 75 12/29/18 04:30 97.5 F L 82 18 138/73 Pulse Ox 12/29/18 15:19 97 12/29/18 14:20 12/29/18 12:22 98 12/29/18 07:14 99 12/29/18 07:00 12/29/18 04:30 98 PG Care Time/CCT Total # of Minutes Spent Total Time Spent with Patient: Total time spent is greater than 50% in coordination of care (as documented) at patient's floor/unit and/or counseling patient: (1) ST elevation (STEMI) myocardial infarction Involved coronary artery: unspecified coronary artery Qualified Code(s): I21.3 - ST elevation (STEMI) myocardial infarction of unspecified site
[2018-12-29 16:00] LABS: Hematocrit (blood only) 35.9 % (37-47); Hemoglobin 11.9 g/dL (12.0-16.0); Mean Corpuscular Hgb Conc 33.1 g/dL (32-36); Mean Corpuscular Volume 90.4 fL (80-100); Mean Platelet Volume 11.9 fL (7.4-10.4); Platelet Count 262 K/uL (130-400); RDW Coefficient of Variation 13.6 % (11.5-14.5); RDW Standard Deviation 44.9 fL (36.4-46.3); Red Blood Count 3.97 M/uL (4.2-5.4)
[2018-12-29 16:21] LABS: BUN Creatinine Ratio 56.8 (10-20); Calcium 8.8 mg/dl (8.5-10.1); Creatinine Clr Calc Pharmacy 61.1 ml/min; Est GFR (African American) 106.8; Est GFR (Non-African American) 92.2
[2018-12-29] MEDS: ATORVASTATIN 20 MG TAB PO SCH (17:01)
[2018-12-29] MEDS: SENNA 8.6 MG TAB PO PRN (18:44)
[2018-12-29] MEDS: METOPROLOL TARTRATE 100 MG TAB PO SCH (20:42)
[2018-12-30] MEDS: LEVOTHYROXINE SODIUM 50 MCG TABLET PO SCH (06:02)
[2018-12-30] MEDS: METOPROLOL TARTRATE 100 MG TAB PO SCH ×2 (08:03→21:11)
[2018-12-30] MEDS: ATORVASTATIN 20 MG TAB PO SCH (08:03)
[2018-12-30] MEDS: MULTIVITAMIN TAB PO SCH (08:03)
[2018-12-30] MEDS: CLOPIDOGREL BISULFATE 75 MG TAB PO SCH (08:04)
[2018-12-30] MEDS: CALCIUM 600MG + VIT D 400 IU TAB PO SCH (08:04)
[2018-12-30 08:16] LABS: BUN Creatinine Ratio 56.1 (10-20); Calcium 8.9 mg/dl (8.5-10.1); Creatinine Clr Calc Pharmacy 65.9 ml/min; Est GFR (African American) 109.5; Est GFR (Non-African American) 94.4; Phosphorus 2.9 mg/dl (2.5-4.9); Potassium 3.7 mmol/L (3.5-5.1)
[2018-12-30] MEDS: ASPIRIN 81 MG CHEW PO SCH (08:24)
[2018-12-30] MEDS ORDERED: POTASSIUM CHLORIDE 20 MEQ TABCR PO STA (10:51)
[2018-12-30] MEDS: LOSARTAN POTASSIUM 25 MG TAB PO SCH (11:57)
[2018-12-30] MEDS ORDERED: BUTALBITAL/ACETAMIN/CAFFEINE TAB PO PRN (15:08)
[2018-12-30] MEDS ORDERED: BUTALBITAL/ACETAMIN/CAFFEINE TAB PO ONE (15:12)
[2018-12-31] MEDS: LEVOTHYROXINE SODIUM 50 MCG TABLET PO SCH (06:12)
[2018-12-31 07:17] VITALS: TEMP 97.7; O2SAT 97
[2018-12-31] MEDS: ATORVASTATIN 20 MG TAB PO SCH (08:03)
[2018-12-31] MEDS: CALCIUM 600MG + VIT D 400 IU TAB PO SCH (08:03)
[2018-12-31] MEDS: CLOPIDOGREL BISULFATE 75 MG TAB PO SCH (08:03)
[2018-12-31] MEDS: METOPROLOL TARTRATE 100 MG TAB PO SCH (08:03)
[2018-12-31] MEDS: DOCUSATE SODIUM SYRUP 100 MG/10 ML UDC PO PRN (08:03)
[2018-12-31] MEDS: MULTIVITAMIN TAB PO SCH (08:03)
[2018-12-31] MEDS: ASPIRIN 81 MG CHEW PO SCH (08:06)
[2018-12-31] MEDS: SENNA 8.6 MG TAB PO PRN (08:06)
[2018-12-31] MEDS: LOSARTAN POTASSIUM 25 MG TAB PO SCH (08:06)
[2018-12-31 10:29] LABS: Calcium 8.9 mg/dl (8.5-10.1); Creatinine Clr Calc Pharmacy 57.4 ml/min; Est GFR (African American) 105.2; Est GFR (Non-African American) 90.8; Potassium 4.3 mmol/L (3.5-5.1)
[2018-12-31 10:31] VITALS: BP 148/71
--- NOTE | 2018-12-31 11:52 | Hospitalist Progress Note ---
Date of Service December 30, 2018 Assessment & Plan (1) ST elevation (STEMI) myocardial infarction: (2) S/P drug eluting coronary stent placement: 88-year-old female from [facility] brought in for abdominal pain, in ER complained of chest pain. EKG showed ST elevated [place] in the inferior leads. Acute ST elevated myocardial infarction in inferior leads, s/p cardiac catheterization which showed 100% proximal occlusion, s/p single drug-eluting stent. The patient also has 70-80% mid LAD lesion and angulated left main with 40% proximal stenosis. Loaded with Plavix, dual antiplatelet therapy for 1 year, beta antonio, and high-dose statin (starting statin today) Currently in telemetry unit, episodes of atrial tachycardia,c/w atrial flutter Echo showed mild LV dysfunction, severe inferior hypokinesis Cardiology following, continue DAPT with aspirin, clopidogrel Increased metoprolol to 100 mg twice a day Started atorvastatin (no complications) Stopped amlodipine, start losartan 12.5 mg today and will continue to closely monitor (3) New onset atrial fibrillation: Overnight after PCI, then converted to sinus rhythm on (12/27/2018) Unless recurrent, prolonged A. fib would hold off on anticoagulation Now episodes of atrial tachycardia, likely a flutter, discussed again with cardiology and for now would hold off on AC Cardiology following (4) Hypertension: Stopped home amlodipine, pt was started on metoprolol, now increased to 100 mg twice a day Start losartan 12.5 mg today and continue to closely monitor (5) Hypothyroidism: Continue Synthroid (6) Constipation: Cont. bowel regimen Thickening of endometrium on the CAT scan Nonemergent pelvic ultrasound when patient is more stable or follow-up as out patient (7) DVT prophylaxis: SCDs (8) Malnutrition: Patient is very thin, cachectic, BMI of 15.6 Per daughter, patient is a poor eater and she has been progressively losing weight over several years Dietitian consulted, started on dietary supplement Risk for aspiration Honey thick liquid diet Subjective 12/29/2018 Episodes of atrial tachycardia noted on telemetry, discussed with cardiology at the bedside. Also discussed anticoagulation/will hold off for now as patient is high risk for bleeding. Will discuss this also with her family. 12/30/2018 Elderly female lying in bed, in no acute distress. She denies any fevers, chills, chest pain, shortness of breath, palpitations, dizziness, lightheadedness, abdominal pain, nausea or vomiting. She is inquiring about going home. States that her son is going to be flying in today. Started atorvastatin yesterday (on December 29), she tolerated medication well, no adverse effects or allergic reactions. See my previous note regarding possible allergic reaction to medications. Started losartan on December 30, again patient did not have any allergic reaction to medication, will continue to monitor blood pressure and for any symptoms of dizziness or lightheadedness. If she tolerates well, will discharge her on the medication. Review of Systems Review of Systems: All systems reviewed & are unremarkable except as noted in HPI & below Constitutional: no fever and no chills Respiratory: no cough and no dyspnea Cardiovascular: no chest pain, no dyspnea on exertion, no palpitations and no edema Gastrointestinal: no abdominal pain, no nausea and no vomiting Physical Exam Physical Exam: GENERAL: Elderly cachectic female lying in bed in no acute distress HEENT: Normocephalic, atraumatic,PERRL, EOMI, anicteric sclerae NECK: No JVD, no neck masses, no carotid bruits. CV: regular rate and rhythm, no murmur, no gallop RESPIRATORY: No accessory muscle use. CTAB No wheezing, no crackles. ABDOMEN: Soft, bowel sounds present, nontender. No distention. NEURO: Awake and alert. Moves all 4 extremities spontaneously. EXTREMITIES: No edema, no erythema. Right radial cardiac cath site, without significant ecchymosis Results & Data Vital Signs (Past 12 Hours) Vital Signs Temp Pulse Pulse Pulse Resp BP Pulse Ox 12/31/18 10:31 62 148/71 H 12/31/18 10:15 55 L 92/51 L 12/31/18 08:00 63 12/31/18 07:16 36.5 C 67 18 113/65 97 12/31/18 04:15 36.3 C L 65 18 137/76 98 (1) ST elevation (STEMI) myocardial infarction Involved coronary artery: unspecified coronary artery Qualified Code(s): I21.3 - ST elevation (STEMI) myocardial infarction of unspecified site
--- NOTE | 2018-12-31 11:58 | Discharge Summary ---
Date of Service December 31, 2018 Admission HPI Per Admitting Provider This 88-year-old female with past medical history significant for hypertension, hyperlipidemia, hypothyroidism, history of hyponatremia, osteoporosis and dementia, who is an [facility] resident, was brought into the hospital with symptoms of abdominal pain and in the ER she complained of chest pain and EKG was done which showed ST elevation CT in inferior leads. ER physician talked to the son and daughter. Daughter lives in [place], Son lives locally but currently out of town. Heart alert was called and Er discussed with son and daughter and they are ok for cardiac cath.Currently s/p heart catheterization. Found to have 100% occlusion of the proximal RCA, a single stent was placed and she did okay and hemodynamically stable and brought for monitoring in the ICU. Currently, the patient seems to be confused and could not get much history from her. I called [facility] night staff, they does not seem to know much about this patient. As per them the patient has mild dementia and mostly independent, ambulates okay without any support and she was brought in because of chest discomfort. Admission Exam Per Admitting Provider GENERAL: The patient is alert and awake, oriented to name only. VITAL SIGNS: Temperature 36.4, pulse 96, respirations 15, blood pressure 98/64, oxygen 95% room air. HEENT: No pallor, no icterus. NECK: No JVD, no neck masses, no carotid bruits. CARDIOVASCULAR: S1, S2 heard, regular rate and rhythm, no murmur, no gallop. RESPIRATORY SYSTEM: Normal AP diameter. No accessory muscle use. No wheezing, no crackles. ABDOMEN: Soft, bowel sounds present, nontender. No distention. CENTRAL NERVOUS SYSTEM: Alert and awake and oriented x1. Moves extremities. Obeys simple commands. EXTREMITIES: No edema, no erythema. Right radial cardiac cath site, no drainage seen. Principal Diagnosis ST elevation myocardial infarction (heart attack), atrial tachycardia Discharge Exam GENERAL: Elderly cachectic female sitting up in bed in no acute distress HEENT: Normocephalic, atraumatic,PERRL, EOMI, anicteric sclerae NECK: No JVD, no neck masses, no carotid bruits. CV: regular rate and rhythm, no murmur, no gallop RESPIRATORY: No accessory muscle use. CTAB No wheezing, no crackles. ABDOMEN: Soft, bowel sounds present, nontender. No distention. NEURO: Awake and alert. Moves all 4 extremities spontaneously. EXTREMITIES: No edema, no erythema. Right radial cardiac cath site, without significant ecchymosis Discharge Data Allergies Allergy/AdvReac Type Severity Reaction Status Date / Time adhesive Allergy Mild RASH Verified 12/26/18 20:18 latex Allergy Mild RASH Verified 12/26/18 20:18 diclofenac Allergy Unknown Verified 12/26/18 20:22 fenofibrate Allergy Unknown Verified 12/26/18 20:22 lisinopril Allergy Unknown Verified 12/26/18 20:22 Penicillins Allergy Unknown Verified 12/26/18 20:22 rosuvastatin [From Crestor] Allergy Unknown Verified 12/26/18 20:22 sulfamethoxazole Allergy Unknown Verified 12/26/18 20:22 [From Bactrim] trimethoprim [From Bactrim] Allergy Unknown Verified 12/26/18 20:22 Consultations 12/26/18 22:46 Consult Case Management - Discharge Planning Routine 12/26/18 22:47 Consult Manager Of Training Routine 12/27/18 02:05 Consult Cardiology Routine Procedures Performed Operation Date: 12/26/18 21:35 Actual Procedures p Aspiration/PCI w/GERMÁN for Stemi - Yovani Stallworth MD s Cineradiography w/Routine Exam - Yovani Stallworth MD Ordered Studies 12/26/18 20:06 CT abd pelvis IV con only Stat 12/26/18 21:36 CL Cath Imgs for PACS use only Stat LABS 12/31/18 Range/Units 09:55 Sodium 141 (136-145) mmol/L Potassium 4.3 D (3.5-5.1) mmol/L Chloride 108 H (98-107) mmol/L Carbon Dioxide 28 (21-32) mmol/L Anion Gap 5.0 (3-11) BUN 23 H (7-18) mg/dl Creatinine 0.44 L (0.6-1.2) mg/dl Est Cr Clr Drug Dosing 57.4 ml/min Est GFR ( Amer) 105.2 Est GFR (Non-Af Amer) 90.8 BUN/Creatinine Ratio 52.0 H (10-20) Glucose 97 (70-99) mg/dl Calcium 8.9 (8.5-10.1) mg/dl Hospital Course (1) ST elevation (STEMI) myocardial infarction: (2) S/P drug eluting coronary stent placement: 88-year-old female from [facility] brought in for abdominal pain, in ER complained of chest pain. EKG showed ST elevated CT in the inferior leads. Acute ST elevated myocardial infarction in inferior leads, s/p cardiac catheterization which showed 100% proximal occlusion, s/p single drug-eluting stent. The patient also has 70-80% mid LAD lesion and angulated left main with 40% proximal stenosis. Loaded with Plavix, dual antiplatelet therapy for 1 year, beta antonio, and high-dose statin (starting statin today) Currently in telemetry unit, episodes of atrial tachycardia,c/w atrial flutter Echo showed mild LV dysfunction, severe inferior hypokinesis Cardiology following, continue DAPT with aspirin, clopidogrel Increased metoprolol to 100 mg twice a day Started atorvastatin (no complications) Stopped amlodipine, started losartan 12.5 mg yesterday, however patient's blood pressures were on the lower side and she complained of dizziness when trying to stand up from bed therefore losartan will be discontinued, can try to reintroduce with her PCP or at her cardiology follow-up in 2 weeks. (3) New onset atrial fibrillation: Overnight after PCI, then converted to sinus rhythm on (12/27/2018) Unless recurrent, prolonged A. fib would hold off on anticoagulation Now episodes of atrial tachycardia, likely a flutter, discussed again with cardiology and for now would hold off on anticoagulation Cardiology following, patient is supposed to follow-up with special education inclusion teacher, Dr. Stallworth in 2 weeks (4) Hypertension: Stopped home amlodipine, pt was started on metoprolol, now increased to 100 mg twice a day Started losartan 12.5 mg yesterday, her blood pressures were lower, and when trying to have her stand up from bed, patient complained of dizziness, SBP in 90s, therefore will discontinue losartan for now and this can be reintroduced again with her PCP or at her cardiology follow-up in 2 weeks. (5) Hypothyroidism: Continue Synthroid (6) Constipation: Cont. bowel regimen Thickening of endometrium on the CAT scan Nonemergent pelvic ultrasound when pt follows-up as outpatient (7) DVT prophylaxis: SCDs (8) Malnutrition: Patient is very thin, cachectic, BMI of 15.6 Per daughter, patient is a poor eater and she has been progressively losing weight over several years Dietitian consulted, started on dietary supplement Risk for aspiration Honey thick liquid diet Total Time Total Time Spent Total Time Spent (In Minutes): 40 Total Time Includes: Examination of the Patient, Discharge Planning, Medication Reconciliation and Communication With Other Providers Discharge Plan Discharge Items Patient Disposition: Home - Home Health Services Reason For Visit: STEMI Discharge Diagnosis: ST elevation myocardial infarction (heart attack), atrial tachycardia Activity: Resume your previous activity Activity Comment: as tolerated, pace yourself and ask for help as needed Non-emergency contact: Primary Care Provider and Jaw Skinner Call non-emergency contact if: you have any medication questions and your symptoms worsen Follow-up/Referrals: [place], [Primary Care Provider] - Diet: Regular Liquid Consistency: Honey thick Diet Comment: texture: minced and moist Addtl Attending Provider Instructions: You were started on several new medications for your heart -- Make sure to take aspirin and Plavix(clopidogrel) every day. Also take atorvastatin for cholesterol every day. Take metoprolol 100 mg twice a day. STOP taking amlodipine (your blood pressure medication). You will need to follow-up with special education inclusion teacher, Dr. Yovani Stallworth in 2 weeks. You will also need to follow-up with your primary care provider within next 1-2 weeks. Pending Studies at Discharge: No Stand-Alone Forms: My [facility] [employer], Smoking Cessation Medications and DC Order Prescriptions: New clopidogrel 75 mg Tablet 75 mg PO QAM 30 Days Qty: 30 RF: 0 atorvastatin 20 mg Tablet 20 mg PO QAM 30 Days Qty: 30 RF: 0 metoprolol tartrate 100 mg Tablet 100 mg PO BID 30 Days Qty: 60 RF: 0 aspirin 81 mg Tablet,Chewable 81 mg PO QAM 30 Days Qty: 30 RF: 0 Continued multivitamin Tablet 1 tab PO DAILY RF: 0 acetaminophen [Tylenol] 325 mg Tablet 650 mg PO QID PRN (Reason: P/F) RF: 0 meclizine 25 mg tablet 25 mg PO TID PRN (Reason: Dizziness Or Vertigo) RF: 0 levothyroxine 50 mcg tablet 50 mcg PO DAILY RF: 0 diphenhydramine HCl [Banophen] 25 mg Tablet 25 mg PO Q8H PRN (Reason: Itching) RF: 0 Restasis 0.05 % Dropperette 1 drp OPB TID PRN (Reason: DRYNESS) RF: 0 senna 8.6 mg Capsule 8.6 mg PO Q OTHER DAY PRN (Reason: Constipation) RF: 0 calcium carbonate-vitamin D3 [Oysco 500/D] 500 mg(1,250mg) -200 unit Tablet 2 tab PO DAILY RF: 0 Artificial Tears (PF) 0.1-0.3 % Dropperette 1 drp OPB BID PRN (Reason: Dry Eyes) RF: 0 Calmoseptine 0.44-20.6 % Ointment 1 applic TOPICAL DAILY PRN (Reason: IRRITATION TO PEERI RECTAL) RF: 0 Boost 0.04 gram- 1 kcal/mL Liquid 1 ea PO TIDM RF: 0 Discontinued amlodipine [Norvasc] 5 mg tablet 5 mg PO DAILY RF: 0 Discharge Orders: Discharge Order (Routine); Ordered 12/31/18 Ordered By: Jesse Kasper Admission Data Admit Date/Time: 12/26/18 22:46 Attending Provider: Jesse Kasper Admit Provider: Yovani Stallworth Primary Care Provider: [place], Other Providers: Kirk Hurd ; Guido Bee ; Yovani Stallworth ; [facility] Other Interventions: Discharge Summary Assessment (RN) Last Done: 12/31/18 11:57
[2018-12-31 11:59] VITALS: PULSE 62
== END 2018-12-31 17:56 | disposition home health service (06) | DRG 246 ==
LOC: ED 19:28 → CC 21:55 → 1E 22:46 → SUATTDRO 22:46 → 2W 12-28 18:06